=== PATIENT | female | born 1950 | race Caucasian/White ===

== ENCOUNTER → 2016-10-26 | Outpatient (CLI) | payer OTHER ==
[~2016-10-26] MED LIST: ALBU1AER9 INH; ATOR-24 PO; CRG40 PO; LISI40TA PO; LYR75 PO; OYST500T47 PO; PRENTAB65 PO; SERT-234 PO; [UNRECOGNIZED DRUG - CODE] PO
== END | disposition home or self-care (01) ==
LOC: C.LAB 11:26
PROVIDERS: ATTEND Internal Medicine Endocrinology, Diabetes & Metabolism
DX: R73.9 Hyperglycemia, unspecified (principal)

== ENCOUNTER 2017-08-19 00:33 | Inpatient (IN) | payer OTHER ==
[~2017-08-19] VITALS: Ht 172.7 cm; Wt 120.0 kg
[2017-08-19] VITALS (9 sets, daily range): BP systolic 119–135; BP diastolic 73–83; PULSE 57–77; TEMP 37–38; O2SAT 92–97; Ht 172.7 cm; Wt 120.0 kg
[2017-08-19] MEDS ORDERED: ACETAMINOPHEN 500 MG TAB PO STA (00:47)
[2017-08-19] MEDS ORDERED: SODIUM CHLORIDE 0.9% 1000ML 500 ML IV ONE (00:47)
--- NOTE | 2017-08-19 01:16 | EMERGENCY ROOM VISIT NOTE ---
History Report prepared by Myra: Surekha Alvarez Under the Supervision of: Dr. Andrew Mcginnis M.D. First contact with patient: 00:44 Chief Complaint: FLU LIKE SX Stated Complaint: FEVER,COUGHING,DIARRHEA,LUNG CONGESTION History of Present Illness The patient is a 67 year old female who presents to the Emergency Room with complaints of persistent flu symptoms starting yesterday. The patient started having a fever yesterday. She reports chest congestion and coughing. She is feeling weak and has difficulty getting up to her feet. She started having diarrhea yesterday. She denies any vomiting or urinary symptoms. She has been drinking fluids. She did not have a flu shot this season. Her daughter was sick recently, but did not have the flu. She denies any history of asthma or COPD. Source of History: patient Onset: yesterday Position: other (global) Quality: other (flu symptoms) Timing: other (persistent) Associated Symptoms: + fevers, + cough, + diarrhea, + weakness, No vomiting , No urinary symptoms Review of Systems See HPI for pertinent positives & negatives. A total of 10 systems reviewed and were otherwise negative. Past Medical & Surgical Medical Problems: (1) Acute cholecystitis (2) Depression (3) Depressive Disorder Nec (4) Foot deformity (5) Healed foot ulcer (6) History of diabetic ulcer of foot (7) HLD (hyperlipidemia) (8) HTN (hypertension) (9) Hyperlipidemia Nec/Nos (10) Hypertension Nos (11) Loss of sensation (12) Obesity, Nos (13) Peripheral neuropathy (14) Pre-ulcerative corn or callous Surgical Problems: (1) S/P tubal ligation (2) Tubal Ligation Status Family History No pertinent family history stated. Social History Smoking Status: Never Smoker Marital Status: Occupation Status: retired Current/Historical Medications Scheduled Atorvastatin (Lipitor), 40 MG PO DAILY Coenzyme Q10 (Ubidecarenone) (Co Q-10), 150 MG PO DAILY Lisinopril (Zestril), 40 MG PO DAILY Multivitamins/Minerals (Mvi With Minerals), 1 TAB PO DAILY Nadolol (Corgard), 80 MG PO DAILY Sertraline (Zoloft), 200 MG PO DAILY Scheduled PRN Albuterol Hfa (Ventolin Hfa), 2 PUFFS INH Q6H PRN for SOB/Wheezing Allergies Coded Allergies: Digitalis (Unverified Allergy, Intermediate, "passes out", 08/19/17) Antipyrine (Unverified Allergy, Unknown, unknown, 08/19/17) Benzocaine (Unverified Allergy, Unknown, unknown, 08/19/17) Dicyclomine (Unverified Allergy, Unknown, unknown, 08/19/17) Bacitracin (Unverified Adverse Reaction, Intermediate, "slow to heal areas used on", 08/19/17) Neomycin (Unverified Adverse Reaction, Intermediate, "slow to heal areas used on", 08/19/17) Polymyxin B (Unverified Adverse Reaction, Intermediate, "slow to heal areas used on", 06/20/15) Uncoded Allergies: "HYDROXICUT" (Allergy, Intermediate, "passes out", 06/20/15) ANTIHISTAMINE (Allergy, Intermediate, dizziness, 06/20/15) PT IS NONSPECIFIC JURADO'S GLOVE (Allergy, Intermediate, "passes out", 06/20/15) Physical Exam Vital Signs Date Time Temp Pulse Resp B/P (MAP) Pulse Ox O2 Delivery O2 Flow Rate FiO2 08/19/17 00:37 38.1 73 18 150/75 90 Room Air Physical Exam GENERAL: Patient is in no acute distress. HEENT: No acute trauma, normocephalic atraumatic, mucous membranes moist, no nasal congestion, no scleral icterus. No throat erythema or exudate. NECK: No stridor, no adenopathy, no meningismus, trachea is midline. LUNGS: Scattered wheezing. Diminished breath sounds. Breath sounds equal. No crackles. HEART: Without murmurs gallops or rubs, regular rate and rhythm. ABDOMEN: Soft, nontender, bowel sounds positive, no hernias, no peritonitis. EXTREMITIES: No cyanosis or edema, full range of motion of all the joints without pain or difficulty, no signs for acute trauma. NEUROLOGIC: Oriented x 3, no acute motor or sensory deficits, no focal weakness. SKIN: No rash, no jaundice, no diaphoresis. Medical Decision & Procedures ER Provider Diagnostic Interpretation: X-ray results as stated below per interpretation by me: Chest X-ray: No CHF, no pneumonia, no significant cardiomegaly. Laboratory Results 08/19/17 01:09 Red Blood Count 4.98, Mean Corpuscular Volume 86.9, Mean Corpuscular Hemoglobin 29.3, Mean Corpuscular Hemoglobin Concent 33.7, Mean Platelet Volume 9.5, Neutrophils (%) (Auto) 80.3, Lymphocytes (%) (Auto) 8.4, Monocytes (%) (Auto) 10.6, Eosinophils (%) (Auto) 0.2, Basophils (%) (Auto) 0.2, Neutrophils # (Auto ) 8.55, Lymphocytes # (Auto) 0.89, Monocytes # (Auto) 1.13, Eosinophils # (Auto ) 0.02, Basophils # (Auto) 0.02 08/19/17 01:09 Test 08/19/17 00:00 08/19/17 01:09 08/19/17 01:16 White Blood Count 10.64 K/uL (4.8-10.8) Red Blood Count 4.98 M/uL (4.2-5.4) Hemoglobin 14.6 g/dL (12.0-16.0) Hematocrit 43.3 % (37-47) Mean Corpuscular Volume 86.9 fL (80-100) Mean Corpuscular Hemoglobin 29.3 pg (25-34) Mean Corpuscular Hemoglobin Concent 33.7 g/dl (32-36) Platelet Count 164 K/uL (130-400) Mean Platelet Volume 9.5 fL (7.4-10.4) Neutrophils (%) (Auto) 80.3 % Lymphocytes (%) (Auto) 8.4 % Monocytes (%) (Auto) 10.6 % Eosinophils (%) (Auto) 0.2 % Basophils (%) (Auto) 0.2 % Neutrophils # (Auto) 8.55 K/uL (1.4-6.5) Lymphocytes # (Auto) 0.89 K/uL (1.2-3.4) Monocytes # (Auto) 1.13 K/uL (0.11-0.59) Eosinophils # (Auto) 0.02 K/uL (0-0.5) Basophils # (Auto) 0.02 K/uL (0-0.2) RDW Standard Deviation 46.3 fL (36.4-46.3) RDW Coefficient of Variation 14.4 % (11.5-14.5) Immature Granulocyte % (Auto) 0.3 % Immature Granulocyte # (Auto) 0.03 K/uL (0.00-0.02) Prothrombin Time 10.9 SECONDS (9.0-12.0) Prothromb Time International Ratio 1.0 (0.9-1.1) Activated Partial Thromboplast Time 28.2 SECONDS (21.0-31.0) Partial Thromboplastin Ratio 1.1 Anion Gap 9.0 mmol/L (3-11) Est Creatinine Clear Calc Drug Dose 75.9 ml/min Estimated GFR () 69.2 Estimated GFR (Non- 59.7 BUN/Creatinine Ratio 15.2 (10-20) Calcium Level 8.9 mg/dl (8.5-10.1) Total Bilirubin 0.7 mg/dl (0.2-1) Aspartate Amino Transf (AST/SGOT) 27 U/L (15-37) Alanine Aminotransferase (ALT/SGPT) 30 U/L (12-78) Alkaline Phosphatase 107 U/L (45-117) Total Protein 7.7 gm/dl (6.4-8.2) Albumin 3.6 gm/dl (3.4-5.0) Globulin 4.1 gm/dl (2.5-4.0) Albumin/Globulin Ratio 0.9 (0.9-2) Bedside Lactic Acid Venous 1.27 mmol/L (0.90-1.70) Laboratory results reviewed by me. Medications Administered Medications (Trade) Dose Ordered Sig/Viviane Route Start Time Stop Time Status Last Admin Dose Admin Sodium Chloride 500 ml @ 999 mls/hr Q31M ONCE IV 08/19/17 00:47 08/19/17 01:17 DC 08/19/17 00:47 999 MLS/HR Acetaminophen (Tylenol Tab) 1,000 mg NOW STAT PO 08/19/17 00:47 08/19/17 00:49 DC 08/19/17 01:32 1,000 MG Albuterol/ Ipratropium (Duoneb) 3 ml NOW STAT INH 08/19/17 01:33 08/19/17 01:34 DC 08/19/17 01:46 3 ML ED Course 0047: Acetaminophen 1000 mg PO, NSS 500 ml @ 999 mls/hr IV. 0051: The patient was evaluated in room A2. A complete history and physical exam was performed. 0133: Duoneb 3 ml INH. 0141: NSS 500 ml @ 999 mls/hr IV. 0154: I reevaluated the patient. She is resting comfortably. 0200: The patient was signed out to Dr. Henry. Medical Decision Differential diagnoses considered include influenza or flu like illness, pneumonia, UTI, sepsis, dehydration, electrolyte imbalance, anemia. There is no leukocytosis or concerning anemia. No significant electrolyte abnormality, kidney failure or hepatitis. Lactic acid level is not elevated making sepsis less likely. Chest film does not show pneumonia or CHF. Blood cultures are pending. Influenza testing and urinalysis results are pending. On exam, there were no focal neurologic deficits. She was not toxic in appearance. The patient presents with weakness, fever, cough/congestion. She presents basically with flulike symptoms. She has had some diarrhea. The patient received IV saline. She was given 2/500 mL boluses. She was given a DuoNeb. She received oral Tylenol. The patient is still receiving IV fluids, she has yet to provide a urine sample. Once her fluids are complete, once her flu testing has returned, once she has provided a urine sample, she will be reassessed. At this point, the case is being assumed by Dr. Henry, please see his notes for the final disposition and plan. Of note, the patient is already feeling better since her fluids, Tylenol and breathing treatment. Medication Reconcilliation Current Medication List: was personally reviewed by me Blood Pressure Screening Patient's blood pressure: Elevated blood pressure Blood pressure disposition: Referred to PCP Impression Primary Impression: Weakness Additional Impressions: Fever Flu-like symptoms Scribe Attestation The scribe's documentation has been prepared under my direction and personally reviewed by me in its entirety. I confirm that the note above accurately reflects all work, treatment, procedures, and medical decision making performed by me. Departure Information Dispostion Still a Patient Referrals Gilmar Quintero III, M.D. (PCP) Patient Instructions My [facility] Problem Qualifiers
[2017-08-19 01:18] LABS: BASO % 0.2 %; BASO ABS # 0.02 K/uL (0-0.2); EOS % 0.2 %; EOS ABS # 0.02 K/uL (0-0.5); HEMATOCRIT 43.3 % (37-47); HEMOGLOBIN 14.6 g/dL (12.0-16.0); IG# 0.03 K/uL (0.00-0.02); LYMPH % 8.4 %; LYMPH ABS # 0.89 K/uL (1.2-3.4); MEAN CELL VOLUME 86.9 fL (80-100); MEAN CORPUSCULAR HEMOGLOBIN 29.3 pg (25-34); MEAN CORPUSCULAR HGB CONC 33.7 g/dl (32-36); MEAN PLATELET VOLUME 9.5 fL (7.4-10.4); MONO % 10.6 %; MONO ABS # 1.13 K/uL (0.11-0.59); NEUT % 80.3 %; NEUT ABS # 8.55 K/uL (1.4-6.5); PLATELET COUNT 164 K/uL (130-400); RED CELL DISTRIBUTION WIDTH CV 14.4 % (11.5-14.5); RED CELL DISTRIBUTION WIDTH SD 46.3 fL (36.4-46.3); WHITE BLOOD COUNT 10.64 K/uL (4.8-10.8)
[2017-08-19] MEDS ORDERED: ALBUT/IPRATROP 3MG/0.5MG NEB 3 ML VIAL INH STA (01:33)
[2017-08-19 01:35] LABS: ALBUMIN 3.6 gm/dl (3.4-5.0); CALCIUM 8.9 mg/dl (8.5-10.1); CREATININE 0.98 mg/dl (0.60-1.20); POTASSIUM 3.9 mmol/L (3.5-5.1)
[2017-08-19 01:37] LABS: TOTAL PROTEIN 7.7 gm/dl (6.4-8.2)
[2017-08-19] MEDS ORDERED: SODIUM CHLORIDE 0.9% 500ML 500 ML IV STA (01:41)
[2017-08-19 01:51] LABS: PTT PATIENT 28.2 SECONDS (21.0-31.0)
[2017-08-19] MEDS ORDERED: NADO80TA PO (01:56)
[2017-08-19] MEDS ORDERED: VNTHFA/IN INH (01:56)
[2017-08-19] MEDS ORDERED: COEN150C PO (01:57)
[2017-08-19] MEDS ORDERED: MULT-513 PO (01:57)
[2017-08-19 02:42] LABS: INFLUENZA A PCR POS for Influ A (NEG); INFLUENZA B PCR Neg for Influ B (NEG)
[2017-08-19] MEDS ORDERED: OSELTAMIVIR PHOSPHATE 75 MG CAP PO STA (02:49)
[2017-08-19] MEDS ORDERED: ACETAMINOPHEN 325 MG TAB PO PRN (04:00)
[2017-08-19] MEDS ORDERED: ONDANSETRON INJ 2 MG/ML 2 ML VIAL IV PRN (04:00)
--- NOTE | 2017-08-19 04:05 | History and Physical ---
History & Physical Date & Time of Service: Aug 19, 2017 at 03:56 Chief Complaint: Fever,Coughing,Diarrhea,Lung Congestion Primary Care Physician: Gilmar Quintero III, M.D. History of Present Illness Source: patient, family, clinic records, hospital records 67 yo F presents with flu symptoms that began yesterday including a fever, chest congestion and coughing. She has had progressive weakness today and has had difficulty getting up on her feet. She denies vomiting or urinary symptoms but does report some diarrhea. . She has been tolerating PO at home and did not receive a flu shot this year. Daughter reports mom was wheezing and patient states that she felt short of breath today. Denies chest pain. Some sore throat present. Past Medical/Surgical History Medical Problems: (1) Depression Status: Chronic (3) HLD (hyperlipidemia) Status: Chronic (4) HTN (hypertension) Status: Chronic (5) Hyperlipidemia Nec/Nos Status: Chronic (6) Hypertension Nos Status: Chronic (7) Obesity, Nos Status: Chronic Surgical Problems: (1) S/P tubal ligation Status: Chronic 2) s/p Soniya Family History Patient reports no known family medical history. Social History Smoking Status: Never Smoker Smokeless Tobacco Use: No Alcohol Use: socially Drug Use: none Marital Status: Housing status: lives with significant other Occupational Status: retired (RN) Immunizations History of Influenza Vaccine: Yes Influenza Vaccine Date: May 01, 2016 History of Tetanus Vaccine?: Yes Tetanus Immunization Date: Jun 27, 2011 History of Pneumococcal: Yes Pneumococcal Date: May 01, 2016 History of Hepatitis B Vaccine: Unknown Multi-Drug Resistant Organisms History of MDRO: No Allergies Coded Allergies: Digitalis (Unverified Allergy, Intermediate, "passes out", 08/19/17) Antipyrine (Unverified Allergy, Unknown, unknown, 08/19/17) Benzocaine (Unverified Allergy, Unknown, unknown, 08/19/17) Dicyclomine (Unverified Allergy, Unknown, unknown, 08/19/17) Bacitracin (Unverified Adverse Reaction, Intermediate, "slow to heal areas used on", 08/19/17) Neomycin (Unverified Adverse Reaction, Intermediate, "slow to heal areas used on", 08/19/17) Polymyxin B (Unverified Adverse Reaction, Intermediate, "slow to heal areas used on", 06/20/15) Uncoded Allergies: "HYDROXICUT" (Allergy, Intermediate, "passes out", 06/20/15) ANTIHISTAMINE (Allergy, Intermediate, dizziness, 06/20/15) PT IS NONSPECIFIC JURADO'S GLOVE (Allergy, Intermediate, "passes out", 06/20/15) Home Medications Scheduled Atorvastatin (Lipitor), 40 MG PO DAILY Coenzyme Q10 (Ubidecarenone) (Co Q-10), 150 MG PO DAILY Lisinopril (Zestril), 40 MG PO DAILY Multivitamins/Minerals (Mvi With Minerals), 1 TAB PO DAILY Nadolol (Corgard), 80 MG PO DAILY Sertraline (Zoloft), 200 MG PO DAILY Scheduled PRN Albuterol Hfa (Ventolin Hfa), 2 PUFFS INH Q6H PRN for SOB/Wheezing Review of Systems At least ten systems were reviewed and negative except as indicated in HPI. Physical Exam Vital Signs Date Time Temp Pulse Resp B/P (MAP) Pulse Ox O2 Delivery O2 Flow Rate FiO2 08/19/17 03:09 85 Room Air 08/19/17 02:44 73 18 94 Room Air 08/19/17 00:37 38.1 73 18 150/75 90 Room Air General Appearance: no apparent distress, + obese Head: normocephalic, atraumatic Eyes: normal inspection, PERRL, sclerae normal ENT: hearing grossly normal, pharynx normal, + pertinent finding (some sinus pressure TTP in frontal sinuses) Neck: no adenopathy, trachea midline Respiratory/Chest: chest non-tender, normal breath sounds, no respiratory distress, no accessory muscle use, + wheezing Cardiovascular: regular rate, rhythm, no edema, no gallop, no JVD, no murmur, normal peripheral pulses Abdomen/GI: normal bowel sounds, soft, + tenderness (diffuse, no guarding), + pertinent finding (obese abdomen limited exam) Back: normal inspection Extremities/Musculoskelatal: normal inspection, no pedal edema Neurologic/Psych: portable machine cutter II-XII nml as tested, no motor/sensory deficits, alert, normal mood/affect, oriented x 3 Skin: normal color, + diaphoresis Diagnostics Laboratory Results 08/19/17 01:09 Red Blood Count 4.98, Mean Corpuscular Volume 86.9, Mean Corpuscular Hemoglobin 29.3, Mean Corpuscular Hemoglobin Concent 33.7, Mean Platelet Volume 9.5, Neutrophils (%) (Auto) 80.3, Lymphocytes (%) (Auto) 8.4, Monocytes (%) (Auto) 10.6, Eosinophils (%) (Auto) 0.2, Basophils (%) (Auto) 0.2, Neutrophils # (Auto ) 8.55, Lymphocytes # (Auto) 0.89, Monocytes # (Auto) 1.13, Eosinophils # (Auto ) 0.02, Basophils # (Auto) 0.02 08/19/17 01:09 Test 08/19/17 00:00 08/19/17 01:09 08/19/17 01:16 Influenza Type A (RT-PCR) POS for Influ A (NEG) Influenza Type B (RT-PCR) Neg for Influ B (NEG) White Blood Count 10.64 K/uL (4.8-10.8) Red Blood Count 4.98 M/uL (4.2-5.4) Hemoglobin 14.6 g/dL (12.0-16.0) Hematocrit 43.3 % (37-47) Mean Corpuscular Volume 86.9 fL (80-100) Mean Corpuscular Hemoglobin 29.3 pg (25-34) Mean Corpuscular Hemoglobin Concent 33.7 g/dl (32-36) Platelet Count 164 K/uL (130-400) Mean Platelet Volume 9.5 fL (7.4-10.4) Neutrophils (%) (Auto) 80.3 % Lymphocytes (%) (Auto) 8.4 % Monocytes (%) (Auto) 10.6 % Eosinophils (%) (Auto) 0.2 % Basophils (%) (Auto) 0.2 % Neutrophils # (Auto) 8.55 K/uL (1.4-6.5) Lymphocytes # (Auto) 0.89 K/uL (1.2-3.4) Monocytes # (Auto) 1.13 K/uL (0.11-0.59) Eosinophils # (Auto) 0.02 K/uL (0-0.5) Basophils # (Auto) 0.02 K/uL (0-0.2) RDW Standard Deviation 46.3 fL (36.4-46.3) RDW Coefficient of Variation 14.4 % (11.5-14.5) Immature Granulocyte % (Auto) 0.3 % Immature Granulocyte # (Auto) 0.03 K/uL (0.00-0.02) Prothrombin Time 10.9 SECONDS (9.0-12.0) Prothromb Time International Ratio 1.0 (0.9-1.1) Activated Partial Thromboplast Time 28.2 SECONDS (21.0-31.0) Partial Thromboplastin Ratio 1.1 Anion Gap 9.0 mmol/L (3-11) Est Creatinine Clear Calc Drug Dose 75.9 ml/min Estimated GFR () 69.2 Estimated GFR (Non- 59.7 BUN/Creatinine Ratio 15.2 (10-20) Calcium Level 8.9 mg/dl (8.5-10.1) Total Bilirubin 0.7 mg/dl (0.2-1) Aspartate Amino Transf (AST/SGOT) 27 U/L (15-37) Alanine Aminotransferase (ALT/SGPT) 30 U/L (12-78) Alkaline Phosphatase 107 U/L (45-117) Total Protein 7.7 gm/dl (6.4-8.2) Albumin 3.6 gm/dl (3.4-5.0) Globulin 4.1 gm/dl (2.5-4.0) Albumin/Globulin Ratio 0.9 (0.9-2) Bedside Lactic Acid Venous 1.27 mmol/L (0.90-1.70) Date/Time Source Procedure Growth Status 08/19/17 01:09 Blood Blood Culture Pending Received Results Past 24 Hours Test 08/19/17 00:00 08/19/17 01:09 08/19/17 01:16 Range/Units Influenza Type A (RT-PCR) POS for Influ A NEG Influenza Type B (RT-PCR) Neg for Influ B NEG White Blood Count 10.64 4.8-10.8 K/uL Red Blood Count 4.98 4.2-5.4 M/uL Hemoglobin 14.6 12.0-16.0 g/dL Hematocrit 43.3 37-47 % Mean Corpuscular Volume 86.9 80-100 fL Mean Corpuscular Hemoglobin 29.3 25-34 pg Mean Corpuscular Hemoglobin Concent 33.7 32-36 g/dl Platelet Count 164 130-400 K/uL Mean Platelet Volume 9.5 7.4-10.4 fL Neutrophils (%) (Auto) 80.3 % Lymphocytes (%) (Auto) 8.4 % Monocytes (%) (Auto) 10.6 % Eosinophils (%) (Auto) 0.2 % Basophils (%) (Auto) 0.2 % Neutrophils # (Auto) 8.55 1.4-6.5 K/uL Lymphocytes # (Auto) 0.89 1.2-3.4 K/uL Monocytes # (Auto) 1.13 0.11-0.59 K/uL Eosinophils # (Auto) 0.02 0-0.5 K/uL Basophils # (Auto) 0.02 0-0.2 K/uL RDW Standard Deviation 46.3 36.4-46.3 fL RDW Coefficient of Variation 14.4 11.5-14.5 % Immature Granulocyte % (Auto) 0.3 % Immature Granulocyte # (Auto) 0.03 0.00-0.02 K/uL Prothrombin Time 10.9 9.0-12.0 SECONDS Prothromb Time International Ratio 1.0 0.9-1.1 Activated Partial Thromboplast Time 28.2 21.0-31.0 SECONDS Partial Thromboplastin Ratio 1.1 Sodium Level 135 136-145 mmol/L Potassium Level 3.9 3.5-5.1 mmol/L Chloride Level 100 98-107 mmol/L Carbon Dioxide Level 26 21-32 mmol/L Anion Gap 9.0 3-11 mmol/L Blood Urea Nitrogen 15 7-18 mg/dl Creatinine 0.98 0.60-1.20 mg/dl Est Creatinine Clear Calc Drug Dose 75.9 ml/min Estimated GFR () 69.2 Estimated GFR (Non- 59.7 BUN/Creatinine Ratio 15.2 10-20 Random Glucose 162 70-99 mg/dl Calcium Level 8.9 8.5-10.1 mg/dl Total Bilirubin 0.7 0.2-1 mg/dl Aspartate Amino Transf (AST/SGOT) 27 15-37 U/L Alanine Aminotransferase (ALT/SGPT) 30 12-78 U/L Alkaline Phosphatase 107 45-117 U/L Total Protein 7.7 6.4-8.2 gm/dl Albumin 3.6 3.4-5.0 gm/dl Globulin 4.1 2.5-4.0 gm/dl Albumin/Globulin Ratio 0.9 0.9-2 Bedside Lactic Acid Venous 1.27 0.90-1.70 mmol/L Microbiology Results 08/19/17 Blood Culture, Received Pending 08/19/17 Blood Culture, Received Pending Diagnostic Radiology CXR (wet read): no infiltrate Impression Assessment and Plan 67 yo female with worsening SOB and DAE presents with Flu A. Hypoxia-2/2 flu, cont supplemental oxygen and Tamiflu. Cont supportive care measures with NSS, antiemetics PRN, pain control PRN Influenza A-as above. HTN-controlled, cont home meds wheezing 2/2 above-cont bronchodilators DVT proph-Yovani Full Code Dispo-to floor DO Vianney Morley Hospitalist Level of Care Med/Surg Resuscitation Status FULL RESUSCITATION VTE Prophylaxis VTE Risk Assessment Done? Y/N: Yes Risk Level: Moderate Given or contraindicated: Enoxaparin (Lovenox)SQ
[2017-08-19] MEDS: SODIUM CHLORIDE 0.9% 1000ML 1,000 ML IV SCH ×2 (04:52→12:07)
--- NOTE | 2017-08-19 06:03 | EMERGENCY ROOM VISIT NOTE ---
ED Visit Note First contact with patient: 02:32 Pleasant 67 yr old female arrives for worsening generalized weakness in setting of flu like illness. Notes severe weakness just with walking. Was having wheezing which resolved with Duoneb initially. Initially evaluated and signed out to me by Dr Mcginnis awaiting flu swab. PCR is Flu A positive. Patient is unable to ambulate without dropping O2 sats in to mid 80s and is requiring NC O2 just to get her back to low 90s. She is ill appearing and too weak to go home. She does not have evidence of PE, ACS, Dissection. I do not see any evidence of Pneumonia at this time. She was never a smoker but did have extensive second hand smoke exposure. Without any further wheezing will hold off on steroids. Discussed with hospitalist who will evaluate patient. Diagnosis: Influenza A Hypoxia Generalized Weakness
--- NOTE | 2017-08-19 06:56 | DIAGNOSTIC IMAGING REPORT ---
CHEST ONE VIEW PORTABLE CLINICAL HISTORY: Sepsis. COMPARISON STUDY: Chest radiograph June 20, 2015. FINDINGS: There is mild elevation of the right hemidiaphragm. This is unchanged. There is no consolidation to suggest pneumonia. There is no evidence for pulmonary edema. Cardiac size is top normal. No pneumothorax or pleural effusion is noted. IMPRESSION: No acute cardiopulmonary findings. Electronically signed by: Clemente Mace M.D. 08/19/2017 6:55 AM Dictated Date/Time: 08/19/2017 6:54 AM
[2017-08-19] MEDS: ALBUT/IPRATROP 3MG/0.5MG NEB 3 ML VIAL INH SCH ×4 (08:09→20:48)
[2017-08-19] MEDS: CEROVITE ADV FORMULA TAB PO SCH (09:18)
[2017-08-19] MEDS: ENOXAPARIN 40 MG/0.4 ML SYR SQ SCH (09:18)
[2017-08-19] MEDS: OSELTAMIVIR PHOSPHATE 75 MG CAP PO SCH ×2 (09:19→21:14)
[2017-08-19] MEDS: ATORVASTATIN 20 MG TAB PO SCH (09:19)
[2017-08-19] MEDS: SERTRALINE HCL 100 MG TAB PO SCH (09:19)
[2017-08-19] MEDS: NADOLOL 40 MG TAB PO SCH (09:20)
[2017-08-19] MEDS: LISINOPRIL 40 MG TAB PO SCH (09:20)
--- NOTE | 2017-08-19 18:09 | Progress Note ---
Internal Med Progress Note Date of Service: Aug 19, 2017. Provider Documentation: SUBJECTIVE: The patient was seen and examined Feels a little better today Complains of Diarrhea OBJECTIVE: Vital Signs-as noted below Exam: General-Minimal distress at rest Obese Eyes-Normal ENT-normal Neck-supple Lungs-clear to auscultate bilaterally Heart-Regular,no murmur Abdomen-Benign,no masses,bowel sound present Extremities-No edema Neuro-AAOx3 Lab data as noted below. ASSESSMENT & PLAN: 67 yo female with worsening SOB and DAE presents with Flu A. Influenza A Hypoxia-2/2 flu, cont supplemental oxygen and Tamiflu. Cont supportive care measures with NSS, antiemetics PRN, pain control PRN wheezing 2/2 above-cont bronchodilators Clinically a little better Continue supportive care Diarrhea Likely secondary to Viral gastroenteritis Stool for C Diff and Culture HTN-controlled, cont home meds Remains stable Depression Continue home med DVT proph-Lovenox Full Code Dispo-to floor Vital Signs: Date Time Temp Pulse Resp B/P (MAP) Pulse Ox O2 Delivery O2 Flow Rate FiO2 08/19/17 17:02 37.6 08/19/17 16:12 77 20 95 Nasal Cannula 2.0 08/19/17 15:45 Nasal Cannula 2.0 08/19/17 15:22 38.0 70 18 135/75 (95) 92 Nasal Cannula 3.0 08/19/17 11:35 97 08/19/17 08:15 Nasal Cannula 3.0 Humidified Oxygen 08/19/17 08:09 67 16 97 Nasal Cannula 3.0 08/19/17 07:35 37.0 57 15 126/83 (97) 96 Humidified Oxygen 3.0 08/19/17 04:20 37.0 61 18 135/82 95 Nasal Cannula 3.0 08/19/17 03:59 37.3 61 20 132/61 95 Nasal Cannula 4.0 08/19/17 03:09 85 Room Air 08/19/17 02:44 73 18 94 Room Air 08/19/17 00:37 38.1 73 18 150/75 90 Room Air Lab Results: Results Past 24 Hours Test 08/19/17 00:00 08/19/17 01:09 08/19/17 01:16 08/19/17 04:25 Range/Units Influenza Type A (RT-PCR) POS for Influ A NEG Influenza Type B (RT-PCR) Neg for Influ B NEG White Blood Count 10.64 4.8-10.8 K/uL Red Blood Count 4.98 4.2-5.4 M/uL Hemoglobin 14.6 12.0-16.0 g/dL Hematocrit 43.3 37-47 % Mean Corpuscular Volume 86.9 80-100 fL Mean Corpuscular Hemoglobin 29.3 25-34 pg Mean Corpuscular Hemoglobin Concent 33.7 32-36 g/dl Platelet Count 164 130-400 K/uL Mean Platelet Volume 9.5 7.4-10.4 fL Neutrophils (%) (Auto) 80.3 % Lymphocytes (%) (Auto) 8.4 % Monocytes (%) (Auto) 10.6 % Eosinophils (%) (Auto) 0.2 % Basophils (%) (Auto) 0.2 % Neutrophils # (Auto) 8.55 1.4-6.5 K/uL Lymphocytes # (Auto) 0.89 1.2-3.4 K/uL Monocytes # (Auto) 1.13 0.11-0.59 K/uL Eosinophils # (Auto) 0.02 0-0.5 K/uL Basophils # (Auto) 0.02 0-0.2 K/uL RDW Standard Deviation 46.3 36.4-46.3 fL RDW Coefficient of Variation 14.4 11.5-14.5 % Immature Granulocyte % (Auto) 0.3 % Immature Granulocyte # (Auto) 0.03 0.00-0.02 K/uL Prothrombin Time 10.9 9.0-12.0 SECONDS Prothromb Time International Ratio 1.0 0.9-1.1 Activated Partial Thromboplast Time 28.2 21.0-31.0 SECONDS Partial Thromboplastin Ratio 1.1 Sodium Level 135 136-145 mmol/L Potassium Level 3.9 3.5-5.1 mmol/L Chloride Level 100 98-107 mmol/L Carbon Dioxide Level 26 21-32 mmol/L Anion Gap 9.0 3-11 mmol/L Blood Urea Nitrogen 15 7-18 mg/dl Creatinine 0.98 0.60-1.20 mg/dl Est Creatinine Clear Calc Drug Dose 75.9 ml/min Estimated GFR () 69.2 Estimated GFR (Non- 59.7 BUN/Creatinine Ratio 15.2 10-20 Random Glucose 162 70-99 mg/dl Calcium Level 8.9 8.5-10.1 mg/dl Total Bilirubin 0.7 0.2-1 mg/dl Aspartate Amino Transf (AST/SGOT) 27 15-37 U/L Alanine Aminotransferase (ALT/SGPT) 30 12-78 U/L Alkaline Phosphatase 107 45-117 U/L Total Protein 7.7 6.4-8.2 gm/dl Albumin 3.6 3.4-5.0 gm/dl Globulin 4.1 2.5-4.0 gm/dl Albumin/Globulin Ratio 0.9 0.9-2 Bedside Lactic Acid Venous 1.27 0.90-1.70 mmol/L Urine Color YELLOW Urine Appearance CLOUDY CLEAR Urine pH 5.0 4.5-7.5 Urine Specific [place] 1.016 1.000-1.030 Urine Protein NEG NEG Urine Glucose (UA) NEG NEG Urine Ketones NEG NEG Urine Occult Blood NEG NEG Urine Nitrite NEG NEG Urine Bilirubin NEG NEG Urine Urobilinogen NEG NEG Urine Leukocyte Esterase SMALL NEG Urine WBC (Auto) 1-5 0-5 /hpf Urine RBC (Auto) 0-4 0-4 /hpf Urine Hyaline Casts (Auto) 1-5 0-5 /lpf Urine Epithelial Cells (Auto) >30 0-5 /lpf Urine Bacteria (Auto) 1+ NEG Urine Crystals AMORPHOUS SEDIMENT NONE PRSENT Urine Yeast (Auto) NONE PRSENT Microbiology Results 08/19/17 Blood Culture, Received Pending 08/19/17 Blood Culture, Received Pending 08/19/17 C.difficile Toxin B Gene (PCR) - Final, Complete No C. difficile toxin B gene detected 08/19/17 Shiga Toxin Test, Received Pending 08/19/17 Stool Culture, Received Pending 08/19/17 Urine Culture, Received Pending
[2017-08-20] VITALS (7 sets, daily range): BP systolic 127–149; BP diastolic 67–81; PULSE 60–68; TEMP 37.2–37.4; O2SAT 90–93
[2017-08-20] MEDS: ALBUT/IPRATROP 3MG/0.5MG NEB 3 ML VIAL INH SCH ×4 (07:47→20:25)
[2017-08-20] MEDS: LISINOPRIL 40 MG TAB PO SCH (07:57)
[2017-08-20] MEDS: ATORVASTATIN 20 MG TAB PO SCH (07:57)
[2017-08-20] MEDS: SERTRALINE HCL 100 MG TAB PO SCH (07:57)
[2017-08-20] MEDS: CEROVITE ADV FORMULA TAB PO SCH (07:57)
[2017-08-20] MEDS: OSELTAMIVIR PHOSPHATE 75 MG CAP PO SCH ×2 (07:58→20:54)
[2017-08-20] MEDS: NADOLOL 40 MG TAB PO SCH (07:58)
[2017-08-20] MEDS: ENOXAPARIN 40 MG/0.4 ML SYR SQ SCH (07:59)
--- NOTE | 2017-08-20 15:41 | Progress Note ---
Internal Med Progress Note Date of Service: Aug 20, 2017. Provider Documentation: SUBJECTIVE: The patient was seen and examined Feels a little better today Complains of Diarrhea-settled Clinically much better today Complains of some yellowish sputum OBJECTIVE: Vital Signs-as noted below Exam: General-Minimal distress at rest Obese Eyes-Normal ENT-normal Neck-supple Lungs-Minimal wheezing bilaterally Heart-Regular,no murmur Abdomen-Benign,no masses,bowel sound present Extremities-No edema Neuro-AAOx3 Lab data as noted below. ASSESSMENT & PLAN: 67 yo female with worsening SOB and DAE presents with Flu A. Influenza A Hypoxia-2/2 flu, cont supplemental oxygen and Tamiflu. Cont supportive care measures with NSS, antiemetics PRN, pain control PRN wheezing 2/2 above-cont bronchodilators Clinically much better Continue supportive care CXR in AM and may be discharged tomorrow Diarrhea Likely secondary to Viral gastroenteritis Stool for C Diff and Culture-negative HTN-controlled, cont home meds Remains stable Depression Continue home med DVT proph-Lovenox Full Code Dispo-to floor Vital Signs: Date Time Temp Pulse Resp B/P (MAP) Pulse Ox O2 Delivery O2 Flow Rate FiO2 08/20/17 15:06 37.3 60 16 127/73 (91) 90 Room Air 08/20/17 11:36 61 18 92 Room Air 08/20/17 08:00 Room Air 08/20/17 07:47 60 18 91 Room Air 08/20/17 07:09 37.4 63 18 149/67 (94) 92 Room Air 08/19/17 23:45 Room Air 08/19/17 22:27 37.0 61 19 119/73 (88) 92 Room Air 08/19/17 20:48 71 18 94 Nasal Cannula 2.0 08/19/17 17:02 37.6 08/19/17 16:12 77 20 95 Nasal Cannula 2.0 08/19/17 15:45 Nasal Cannula 2.0
[2017-08-21] MEDS: ALBUT/IPRATROP 3MG/0.5MG NEB 3 ML VIAL INH SCH ×2 (07:22→11:23)
[2017-08-21 07:23] VITALS: PULSE 67; O2SAT 94
[2017-08-21 08:03] VITALS: O2SAT 95
[2017-08-21 08:14] VITALS: BP 138/80; PULSE 60; TEMP 36.3; O2SAT 95
--- NOTE | 2017-08-21 08:42 | DIAGNOSTIC IMAGING REPORT ---
CHEST 2 VIEWS ROUTINE HISTORY: 67 years-old Female Flu,r/o Pneumonia follow-up study in a patient with recent sepsis COMPARISON: Chest radiograph 08/19/2017 TECHNIQUE: PA and lateral views of the chest FINDINGS: Cardiomediastinal and hilar silhouettes are within normal limits. No pneumothorax, pleural effusion, focal airspace consolidation or overt pulmonary edema. Hazy opacity of the left lung base likely secondary to composite soft tissue. The patient is slightly rotated to the right. Degenerative changes are seen within the shoulders and spine. Mild extra scoliosis of the midthoracic spine. Cholecystectomy clips noted. IMPRESSION: No acute process. The above report was generated using voice recognition software. It may contain grammatical, syntax or spelling errors. Electronically signed by: Roberto Green M.D. 08/21/2017 8:40 AM Dictated Date/Time: 08/21/2017 8:11 AM
[2017-08-21] MEDS: LISINOPRIL 40 MG TAB PO SCH (08:58)
[2017-08-21] MEDS: NADOLOL 40 MG TAB PO SCH (08:59)
[2017-08-21] MEDS: SERTRALINE HCL 100 MG TAB PO SCH (08:59)
[2017-08-21] MEDS: OSELTAMIVIR PHOSPHATE 75 MG CAP PO SCH (08:59)
[2017-08-21] MEDS: ENOXAPARIN 40 MG/0.4 ML SYR SQ SCH (08:59)
[2017-08-21] MEDS: CEROVITE ADV FORMULA TAB PO SCH (08:59)
[2017-08-21] MEDS: ATORVASTATIN 20 MG TAB PO SCH (08:59)
[2017-08-21 09:29] LABS: HEMATOCRIT 40.2 % (37-47); HEMOGLOBIN 13.5 g/dL (12.0-16.0); MEAN CELL VOLUME 86.1 fL (80-100); MEAN CORPUSCULAR HEMOGLOBIN 28.9 pg (25-34); MEAN CORPUSCULAR HGB CONC 33.6 g/dl (32-36); MEAN PLATELET VOLUME 9.9 fL (7.4-10.4); NUCLEATED RED BLOOD CELL ABS 0.02 K/uL (0-0); PLATELET COUNT 154 K/uL (130-400); RED CELL DISTRIBUTION WIDTH CV 14.8 % (11.5-14.5); RED CELL DISTRIBUTION WIDTH SD 46.7 fL (36.4-46.3); WHITE BLOOD COUNT 6.62 K/uL (4.8-10.8)
[2017-08-21 09:41] LABS: CALCIUM 8.7 mg/dl (8.5-10.1); CREATININE 0.75 mg/dl (0.60-1.20)
[2017-08-21 11:23] VITALS: PULSE 63; O2SAT 96
--- NOTE | 2017-08-21 12:00 | Progress Note ---
Internal Med Progress Note Date of Service: Aug 21, 2017. Provider Documentation: SUBJECTIVE: The patient was seen and examined Complains of Diarrhea-settled Clinically much better today Complains of some greenish sputum OBJECTIVE: Vital Signs-as noted below Exam: General-Minimal distress at rest Obese Eyes-Normal ENT-normal Neck-supple Lungs-Minimal wheezing bilaterally Heart-Regular,no murmur Abdomen-Benign,no masses,bowel sound present Extremities-No edema Neuro-AAOx3 Lab data as noted below. ASSESSMENT & PLAN: 67 yo female with worsening SOB and DAE presents with Flu A. Influenza A Hypoxia-2/2 flu, cont supplemental oxygen and Tamiflu. Cont supportive care measures with NSS, antiemetics PRN, pain control PRN wheezing 2/2 above-cont bronchodilators Clinically much better Continue supportive care CXR is clear Can go home today Diarrhea Likely secondary to Viral gastroenteritis Stool for C Diff and Culture-negative Will give Imodium PRN HTN-controlled, cont home meds Remains stable Depression Continue home med DVT proph-Lovenox Full Code Dispo-to floor Discharge today Vital Signs: Date Time Temp Pulse Resp B/P (MAP) Pulse Ox O2 Delivery O2 Flow Rate FiO2 08/21/17 11:23 63 18 96 Room Air 08/21/17 08:30 Room Air 08/21/17 08:14 36.3 60 18 138/80 (99) 95 Room Air 08/21/17 08:03 95 Room Air 08/21/17 07:23 67 18 94 Room Air 08/21/17 00:20 Room Air 08/20/17 22:50 37.2 67 18 140/81 (100) 93 Room Air 08/20/17 20:26 68 18 92 Room Air 08/20/17 16:30 Room Air 08/20/17 15:52 68 18 91 Room Air 08/20/17 15:06 37.3 60 16 127/73 (91) 90 Room Air Lab Results: Results Past 24 Hours Test 08/21/17 08:33 Range/Units White Blood Count 6.62 4.8-10.8 K/uL Red Blood Count 4.67 4.2-5.4 M/uL Hemoglobin 13.5 12.0-16.0 g/dL Hematocrit 40.2 37-47 % Mean Corpuscular Volume 86.1 80-100 fL Mean Corpuscular Hemoglobin 28.9 25-34 pg Mean Corpuscular Hemoglobin Concent 33.6 32-36 g/dl RDW Standard Deviation 46.7 36.4-46.3 fL RDW Coefficient of Variation 14.8 11.5-14.5 % Platelet Count 154 130-400 K/uL Mean Platelet Volume 9.9 7.4-10.4 fL Nucleated RBC Absolute Count (auto) 0.02 0-0 K/uL Nucleated Red Blood Cells % 0.2 % Sodium Level 139 136-145 mmol/L Potassium Level 4.0 3.5-5.1 mmol/L Chloride Level 106 98-107 mmol/L Carbon Dioxide Level 26 21-32 mmol/L Anion Gap 7.0 3-11 mmol/L Blood Urea Nitrogen 16 7-18 mg/dl Creatinine 0.75 0.60-1.20 mg/dl Est Creatinine Clear Calc Drug Dose 99.2 ml/min Estimated GFR () 95.6 Estimated GFR (Non- 82.5 BUN/Creatinine Ratio 20.6 10-20 Random Glucose 86 70-99 mg/dl Calcium Level 8.7 8.5-10.1 mg/dl Chemistry Specimen Hemolysis
[2017-08-21 13:13] VITALS: BP 138/80; PULSE 63; TEMP 36.3; O2SAT 96
[2017-08-21] MEDS ORDERED: TMF75 PO (13:51)
--- NOTE | 2017-08-21 13:53 | Discharge Instructions ---
Discharge Instructions Date of Service Aug 21, 2017. Admission Reason for Admission: Influenza A Discharge Discharge Diagnosis / Problem: Influenza A Discharge Goals Goal(s): Prevent Disease Progression Activity Recommendations Activity Limitations: resume your previous activity . Instructions / Follow-Up Instructions / Follow-Up DR Quintero on 08/26/17 at 1:45PM Current Hospital Diet Patient's current hospital diet: AHA Diet (Heart Healthy) Discharge Diet Recommended Diet: AHA Diet (Heart Healthy) Pending Studies Studies pending at discharge: no Medical Emergencies . Who to Call and When: Medical Emergencies: If at any time you feel your situation is an emergency, please call 911 immediately. . Non-Emergent Contact Non-Emergency issues call your: Primary Care Provider . Past History Medical & Surgical History: (1) Influenza A (2) HLD (hyperlipidemia) (3) Depression (4) Peripheral neuropathy (5) History of diabetic ulcer of foot (6) HTN (hypertension) (7) S/P tubal ligation . "Provider Documentation" section prepared by Matilda Salvador. . VTE Core Measure Inpt VTE Proph given/why not?: Enoxaparin (Lovenox)SQ
--- NOTE | 2017-08-22 08:44 | Discharge Summary ---
Discharge Summary Date of Service Aug 22, 2017. Discharge Summary Admission Date: Aug 19, 2017 at 03:21 Discharge Date: Aug 21, 2017 Discharge Disposition: Home Principal Diagnosis: Influenza A Secondary Diagnoses/Problems: Please see H&P and Hospital Progress note Medication Reconciliation New Medications: Oseltamivir Phosphate (Tamiflu) 75 Mg Cap 75 MG PO BID for 3 Days, #6 CAP Continued Medications: Albuterol Hfa (Ventolin Hfa) 200 Puffs/59918 Mcg Aers 2 PUFFS INH Q6H PRN for SOB/Wheezing, INHALER Atorvastatin (Lipitor) 40 Mg Tab 40 MG PO DAILY, TAB Coenzyme Q10 (Ubidecarenone) (Co Q-10) 150 Mg Cap 150 MG PO DAILY, CAP Lisinopril (Zestril) 40 Mg Tab 40 MG PO DAILY, TAB Multivitamins/Minerals (Mvi With Minerals) Tab 1 TAB PO DAILY, TAB Nadolol (Corgard) 80 Mg Tab 80 MG PO DAILY Sertraline (Zoloft) 100 Mg Tab 200 MG PO DAILY, 0 Refills Admission Information HPI (per Admitting provider): 67 yo F presents with flu symptoms that began yesterday including a fever, chest congestion and coughing. She has had progressive weakness today and has had difficulty getting up on her feet. She denies vomiting or urinary symptoms but does report some diarrhea. . She has been tolerating PO at home and did not receive a flu shot this year. Daughter reports mom was wheezing and patient states that she felt short of breath today. Denies chest pain. Some sore throat present. Past Medical/Surgical History Medical Problems: (1) Depression Status: Chronic (3) HLD (hyperlipidemia) Status: Chronic (4) HTN (hypertension) Status: Chronic (5) Hyperlipidemia Nec/Nos Status: Chronic (6) Hypertension Nos Status: Chronic (7) Obesity, Nos Status: Chronic Surgical Problems: (1) S/P tubal ligation Status: Chronic 2) s/p Soniya Family History Patient reports no known family medical history. Social History Smoking Status: Never Smoker Smokeless Tobacco Use: No Alcohol Use: socially Drug Use: none Marital Status: Housing status: lives with significant other Occupational Status: retired (RN) Immunizations History of Influenza Vaccine: Yes Influenza Vaccine Date: May 01, 2016 History of Tetanus Vaccine?: Yes Tetanus Immunization Date: Jun 27, 2011 History of Pneumococcal: Yes Pneumococcal Date: May 01, 2016 History of Hepatitis B Vaccine: Unknown Multi-Drug Resistant Organisms History of MDRO: No Allergies Coded Allergies: Digitalis (Unverified Allergy, Intermediate, "passes out", 08/19/17) Antipyrine (Unverified Allergy, Unknown, unknown, 08/19/17) Benzocaine (Unverified Allergy, Unknown, unknown, 08/19/17) Dicyclomine (Unverified Allergy, Unknown, unknown, 08/19/17) Bacitracin (Unverified Adverse Reaction, Intermediate, "slow to heal areas used on", 08/19/17) Neomycin (Unverified Adverse Reaction, Intermediate, "slow to heal areas used on", 08/19/17) Polymyxin B (Unverified Adverse Reaction, Intermediate, "slow to heal areas used on", 06/20/15) Uncoded Allergies: "HYDROXICUT" (Allergy, Intermediate, "passes out", 06/20/15) ANTIHISTAMINE (Allergy, Intermediate, dizziness, 06/20/15) PT IS NONSPECIFIC JURADO'S GLOVE (Allergy, Intermediate, "passes out", 06/20/15) Home Medications Scheduled Atorvastatin (Lipitor), 40 MG PO DAILY Coenzyme Q10 (Ubidecarenone) (Co Q-10), 150 MG PO DAILY Lisinopril (Zestril), 40 MG PO DAILY Multivitamins/Minerals (Mvi With Minerals), 1 TAB PO DAILY Nadolol (Corgard), 80 MG PO DAILY Sertraline (Zoloft), 200 MG PO DAILY Scheduled PRN Albuterol Hfa (Ventolin Hfa), 2 PUFFS INH Q6H PRN for SOB/Wheezing Review of Systems At least ten systems were reviewed and negative except as indicated in HPI. Physical Ex - H&P Physical Exam Vital Signs Date Time Temp Pulse Resp B/P (MAP) Pulse Ox O2 Delivery O2 Flow Rate FiO2 08/19/17 03:09 85 Room Air 08/19/17 02:44 73 18 94 Room Air 08/19/17 00:37 38.1 73 18 150/75 90 Room Air General Appearance: no apparent distress, + obese Head: normocephalic, atraumatic Eyes: normal inspection, PERRL, sclerae normal ENT: hearing grossly normal, pharynx normal, + pertinent finding (some sinus pressure TTP in frontal sinuses) Neck: no adenopathy, trachea midline Respiratory/Chest: chest non-tender, normal breath sounds, no respiratory distress, no accessory muscle use, + wheezing Cardiovascular: regular rate, rhythm, no edema, no gallop, no JVD, no murmur, normal peripheral pulses Abdomen/GI: normal bowel sounds, soft, + tenderness (diffuse, no guarding), + pertinent finding (obese abdomen limited exam) Back: normal inspection Extremities/Musculoskelatal: normal inspection, no pedal edema Neurologic/Psych: batch dumper II-XII nml as tested, no motor/sensory deficits, alert, normal mood/affect, oriented x 3 Skin: normal color, + diaphoresis Diagnostics - H&P Diagnostics Laboratory Results 08/19/17 01:09 Red Blood Count 4.98, Mean Corpuscular Volume 86.9, Mean Corpuscular Hemoglobin 29.3, Mean Corpuscular Hemoglobin Concent 33.7, Mean Platelet Volume 9.5, Neutrophils (%) (Auto) 80.3, Lymphocytes (%) (Auto) 8.4, Monocytes (%) (Auto) 10.6, Eosinophils (%) (Auto) 0.2, Basophils (%) (Auto) 0.2, Neutrophils # (Auto ) 8.55, Lymphocytes # (Auto) 0.89, Monocytes # (Auto) 1.13, Eosinophils # (Auto ) 0.02, Basophils # (Auto) 0.02 08/19/17 01:09 Test 08/19/17 00:00 08/19/17 01:09 08/19/17 01:16 Influenza Type A (RT-PCR) POS for Influ A (NEG) Influenza Type B (RT-PCR) Neg for Influ B (NEG) White Blood Count 10.64 K/uL (4.8-10.8) Red Blood Count 4.98 M/uL (4.2-5.4) Hemoglobin 14.6 g/dL (12.0-16.0) Hematocrit 43.3 % (37-47) Mean Corpuscular Volume 86.9 fL (80-100) Mean Corpuscular Hemoglobin 29.3 pg (25-34) Mean Corpuscular Hemoglobin Concent 33.7 g/dl (32-36) Platelet Count 164 K/uL (130-400) Mean Platelet Volume 9.5 fL (7.4-10.4) Neutrophils (%) (Auto) 80.3 % Lymphocytes (%) (Auto) 8.4 % Monocytes (%) (Auto) 10.6 % Eosinophils (%) (Auto) 0.2 % Basophils (%) (Auto) 0.2 % Neutrophils # (Auto) 8.55 K/uL (1.4-6.5) Lymphocytes # (Auto) 0.89 K/uL (1.2-3.4) Monocytes # (Auto) 1.13 K/uL (0.11-0.59) Eosinophils # (Auto) 0.02 K/uL (0-0.5) Basophils # (Auto) 0.02 K/uL (0-0.2) RDW Standard Deviation 46.3 fL (36.4-46.3) RDW Coefficient of Variation 14.4 % (11.5-14.5) Immature Granulocyte % (Auto) 0.3 % Immature Granulocyte # (Auto) 0.03 K/uL (0.00-0.02) Prothrombin Time 10.9 SECONDS (9.0-12.0) Prothromb Time International Ratio 1.0 (0.9-1.1) Activated Partial Thromboplast Time 28.2 SECONDS (21.0-31.0) Partial Thromboplastin Ratio 1.1 Anion Gap 9.0 mmol/L (3-11) Est Creatinine Clear Calc Drug Dose 75.9 ml/min Estimated GFR () 69.2 Estimated GFR (Non- 59.7 BUN/Creatinine Ratio 15.2 (10-20) Calcium Level 8.9 mg/dl (8.5-10.1) Total Bilirubin 0.7 mg/dl (0.2-1) Aspartate Amino Transf (AST/SGOT) 27 U/L (15-37) Alanine Aminotransferase (ALT/SGPT) 30 U/L (12-78) Alkaline Phosphatase 107 U/L (45-117) Total Protein 7.7 gm/dl (6.4-8.2) Albumin 3.6 gm/dl (3.4-5.0) Globulin 4.1 gm/dl (2.5-4.0) Albumin/Globulin Ratio 0.9 (0.9-2) Bedside Lactic Acid Venous 1.27 mmol/L (0.90-1.70) Date/Time Source Procedure Growth Status 08/19/17 01:09 Blood Blood Culture Pending Received Results Past 24 Hours Test 08/19/17 00:00 08/19/17 01:09 08/19/17 01:16 Range/Units Influenza Type A (RT-PCR) POS for Influ A NEG Influenza Type B (RT-PCR) Neg for Influ B NEG White Blood Count 10.64 4.8-10.8 K/uL Red Blood Count 4.98 4.2-5.4 M/uL Hemoglobin 14.6 12.0-16.0 g/dL Hematocrit 43.3 37-47 % Mean Corpuscular Volume 86.9 80-100 fL Mean Corpuscular Hemoglobin 29.3 25-34 pg Mean Corpuscular Hemoglobin Concent 33.7 32-36 g/dl Platelet Count 164 130-400 K/uL Mean Platelet Volume 9.5 7.4-10.4 fL Neutrophils (%) (Auto) 80.3 % Lymphocytes (%) (Auto) 8.4 % Monocytes (%) (Auto) 10.6 % Eosinophils (%) (Auto) 0.2 % Basophils (%) (Auto) 0.2 % Neutrophils # (Auto) 8.55 1.4-6.5 K/uL Lymphocytes # (Auto) 0.89 1.2-3.4 K/uL Monocytes # (Auto) 1.13 0.11-0.59 K/uL Eosinophils # (Auto) 0.02 0-0.5 K/uL Basophils # (Auto) 0.02 0-0.2 K/uL RDW Standard Deviation 46.3 36.4-46.3 fL RDW Coefficient of Variation 14.4 11.5-14.5 % Immature Granulocyte % (Auto) 0.3 % Immature Granulocyte # (Auto) 0.03 0.00-0.02 K/uL Prothrombin Time 10.9 9.0-12.0 SECONDS Prothromb Time International Ratio 1.0 0.9-1.1 Activated Partial Thromboplast Time 28.2 21.0-31.0 SECONDS Partial Thromboplastin Ratio 1.1 Sodium Level 135 136-145 mmol/L Potassium Level 3.9 3.5-5.1 mmol/L Chloride Level 100 98-107 mmol/L Carbon Dioxide Level 26 21-32 mmol/L Anion Gap 9.0 3-11 mmol/L Blood Urea Nitrogen 15 7-18 mg/dl Creatinine 0.98 0.60-1.20 mg/dl Est Creatinine Clear Calc Drug Dose 75.9 ml/min Estimated GFR () 69.2 Estimated GFR (Non- 59.7 BUN/Creatinine Ratio 15.2 10-20 Random Glucose 162 70-99 mg/dl Calcium Level 8.9 8.5-10.1 mg/dl Total Bilirubin 0.7 0.2-1 mg/dl Aspartate Amino Transf (AST/SGOT) 27 15-37 U/L Alanine Aminotransferase (ALT/SGPT) 30 12-78 U/L Alkaline Phosphatase 107 45-117 U/L Total Protein 7.7 6.4-8.2 gm/dl Albumin 3.6 3.4-5.0 gm/dl Globulin 4.1 2.5-4.0 gm/dl Albumin/Globulin Ratio 0.9 0.9-2 Bedside Lactic Acid Venous 1.27 0.90-1.70 mmol/L Microbiology Results 08/19/17 Blood Culture, Received Pending 08/19/17 Blood Culture, Received Pending Diagnostic Radiology CXR (wet read): no infiltrate Impression - H&P Impression Assessment and Plan 67 yo female with worsening SOB and DAE presents with Flu A. Hypoxia-2/2 flu, cont supplemental oxygen and Tamiflu. Cont supportive care measures with NSS, antiemetics PRN, pain control PRN Influenza A-as above. HTN-controlled, cont home meds wheezing 2/2 above-cont bronchodilators DVT proph-Yovani Full Code Dispo-to floor DO Vianney Morley Hospitalist Level of Care Med/Surg Resuscitation Status FULL RESUSCITATION VTE Prophylaxis VTE Risk Assessment Done? Y/N: Yes Risk Level: Moderate Given or contraindicated: Enoxaparin (Lovenox)SQ Physical Exam (per Admitting): General Appearance: no apparent distress, + obese Head: normocephalic, atraumatic Eyes: normal inspection, PERRL, sclerae normal ENT: hearing grossly normal, pharynx normal, + pertinent finding (some sinus pressure TTP in frontal sinuses) Neck: no adenopathy, trachea midline Respiratory/Chest: chest non-tender, normal breath sounds, no respiratory distress, no accessory muscle use, + wheezing Cardiovascular: regular rate, rhythm, no edema, no gallop, no JVD, no murmur , normal peripheral pulses Abdomen/GI: normal bowel sounds, soft, + tenderness (diffuse, no guarding), + pertinent finding (obese abdomen limited exam) Back: normal inspection Extremities/Musculoskelatal: normal inspection, no pedal edema Neurologic/Psych: batch dumper II-XII nml as tested, no motor/sensory deficits, alert , normal mood/affect, oriented x 3 Skin: normal color, + diaphoresis Hospital Course 67 yo female with worsening SOB and DAE presents with Flu A. Influenza A Hypoxia-2/2 flu, cont supplemental oxygen and Tamiflu. Cont supportive care measures with NSS, antiemetics PRN, pain control PRN wheezing 2/2 above-cont bronchodilators Clinically much better Continue supportive care CXR is clear Can go home today Diarrhea Likely secondary to Viral gastroenteritis Stool for C Diff and Culture-negative Will give Imodium PRN HTN-controlled, cont home meds Remains stable Depression Continue home med DVT proph-Lovenox Full Code Dispo-to floor Discharge today Total time spent on discharge = 35 minutes This includes examination of the patient, discharge planning, medication reconciliation, and communication with other providers. Discharge Instructions Date of Service Aug 21, 2017. Admission Reason for Admission: Influenza A Discharge Discharge Diagnosis / Problem: Influenza A Discharge Goals Goal(s): Prevent Disease Progression Activity Recommendations Activity Limitations: resume your previous activity . Instructions / Follow-Up Instructions / Follow-Up DR Quintero on 08/26/17 at 1:45PM Current Hospital Diet Patient's current hospital diet: AHA Diet (Heart Healthy) Discharge Diet Recommended Diet: AHA Diet (Heart Healthy) Pending Studies Studies pending at discharge: no Medical Emergencies . Who to Call and When: Medical Emergencies: If at any time you feel your situation is an emergency, please call 911 immediately. . Non-Emergent Contact Non-Emergency issues call your: Primary Care Provider . Past History Medical & Surgical History: (1) Influenza A (2) HLD (hyperlipidemia) (3) Depression (4) Peripheral neuropathy (5) History of diabetic ulcer of foot (6) HTN (hypertension) (7) S/P tubal ligation . "Provider Documentation" section prepared by Matilda Salvador. . VTE Core Measure Inpt VTE Proph given/why not?: Enoxaparin (Lovenox)SQ <Electronically signed by Matilda Salvador M.D.> Signed: 08/21/17 [id number] Additional Copies To Gilmar Quintero III, M.D.
== END 2017-08-21 14:15 | disposition home or self-care (01) | DRG 194 ==
LOC: C.EDB 00:34 → C.MSN 03:21 → ENRESERV 03:39
PROVIDERS: ADMIT Hospitalist; ATTEND Internal Medicine
DX: J10.1 Influenza due to other identified influenza virus with other respiratory manifestations (principal); Z68.41 Body mass index [BMI] 40.0-44.9, adult; R09.02 Hypoxemia; J10.2 Influenza due to other identified influenza virus with gastrointestinal manifestations; F32.9 Major depressive disorder, single episode, unspecified; I10 Essential (primary) hypertension; E78.5 Hyperlipidemia, unspecified; E66.9 Obesity, unspecified; Z79.899 Other long term (current) drug therapy; Z77.22 Contact with and (suspected) exposure to environmental tobacco smoke (acute) (chronic); Z88.1 Allergy status to other antibiotic agents; Z88.8 Allergy status to other drugs, medicaments and biological substances; Z88.4 Allergy status to anesthetic agent

== ENCOUNTER 2019-08-06 12:04 | Inpatient (IN) ==
[2019-08-06 13:00] LABS: Appearance Urine Clear (Clear); Bilirubin Urine Negative (Negative); Blood Urine Negative (Negative); Color Urine Dark Yellow; Glucose Urine UA Negative (Negative); Ketones Urine Trace (Negative); Leukocyte Esterase Urine Negative (Negative); Nitrite Urine Negative (Negative); Protein Urine Negative (Negative); Specific Gravity Urine 1.028 (1.000-1.030); Urobilinogen Urine Negative (Negative)
[2019-08-06 13:29] LABS: Amphetamines+Metham, Urine Neg (Neg); Barbiturates, Urine Neg (Neg); Benzodiazepine, Urine Neg (Neg); Cocaine, Urine Neg (Neg); MDMA (Ecstacy), Urine Neg (Neg); Methadone, Urine Neg (Neg); Opiate, Urine Neg (Neg); Phencyclidine, Urine Neg (Neg)
[2019-08-06 13:29] LABS: Basophils # (auto) 0.02 K/uL (0-0.2); Basophils % (auto) 0.1 %; Eosinophils # (auto) 0.31 K/uL (0-0.5); Eosinophils % (auto) 2.3 %; Hematocrit (blood only) 43.1 % (37-47); Hemoglobin 14.4 g/dL (12.0-16.0); Immature Granulocytes # (auto) 0.03 K/uL (0.00-0.02); Immature Granulocytes % (auto) 0.2 %; Lymphocytes % (auto) 12.5 %; Mean Corpuscular Hemoglobin 29.5 pg (25-34); Mean Corpuscular Hgb Conc 33.4 g/dL (32-36); Mean Corpuscular Volume 88.3 fL (80-100); Mean Platelet Volume 9.5 fL (7.4-10.4); Monocytes # (auto) 0.96 K/uL (0.11-0.59); Monocytes % (auto) 7.1 %; Neutrophils # (auto) 10.59 K/uL (1.4-6.5); Neutrophils % (auto) 77.8 %; Platelet Count 240 K/uL (130-400); RDW Coefficient of Variation 14.3 % (11.5-14.5); RDW Standard Deviation 46.5 fL (36.4-46.3); Red Blood Count 4.88 M/uL (4.2-5.4); White Blood Count 13.61 K/uL (4.8-10.8)
[2019-08-06 13:42] LABS: Pregnancy Test, Serum Negative (Negative)
[2019-08-06 13:47] LABS: Albumin Level 3.3 gm/dl (3.4-5.0); BUN Creatinine Ratio 20.2 (10-20); Calcium 8.9 mg/dl (8.5-10.1); Creatinine Clr Calc Pharmacy 71.1 ml/min; Est GFR (African American) 66.6; Est GFR (Non-African American) 57.4; Potassium 4.6 mmol/L (3.5-5.1)
[2019-08-06 13:48] LABS: Acetaminophen < 2 ug/ml (10-30); Salicylate < 1.7 mg/dl (2.8-20)
[2019-08-06 13:57] LABS: Albumin Globulin Ratio 0.8 (0.9-2); Bilirubin,Total 0.5 mg/dl (0.2-1); Globulin 3.9 gm/dl (2.5-4.0); Thyroid Stimulating Hormone 8.58 uIu/ml (0.300-4.500); Total Protein 7.2 gm/dl (6.4-8.2)
[2019-08-06 14:10] LABS: T4 Free Thyroxine 0.94 ng/dl (0.8-1.6)
--- NOTE | 2019-08-06 16:16 | Emergency Department Note ---
Entered by Rosa Mejia acting as a scribe for Jonny Howard M.D. History of Present Illness General Chief complaint: Mental Health Evaluation Stated complaint: MENTAL HEALTH ASSESSMENT Time Seen by Provider: 08/06/19 12:25 Source: patient History of Present Illness Onset (ago): week(s) (a few weeks ago) Location: head Pain Consistency: + other (worsening) Quality: + other (mental health) Associated symptoms: + denies other symptoms (abdominal pain, suicidal thoughts, homicidal thoughts) The patient is a 69 year old female who presents to the Emergency Room for a mental health evaluation. The patient states that for the last 2.5 weeks she has been speaking with a corrections caseworker about the paperwork for her baby. She states that she 1.5 years ago she gave to a baby she named Radha and had her shipped to [facility] because her brother had MRSA. She states that she didnt want to bring the baby home and expose her to that. She notes that she has 4 other babies there and that she calls frequently to get updates on how they are doing. She states that no one believes her that they are real. The patient states that no one also believes her that she delivered the baby herself as no one wanted to help. She states that she also is now. She reports that 8 days ago she had the feeling of a baby kicking. The patients states that this fixation started 6 months ago and has gotten worse over the past few weeks. He states that she tried even calling her PCP about it and they hung up on her before calling her back because they were concerned. He notes that yesterday they sent 3 police officers to their house to make sure everything is okay. He notes that she has not missed any of her medications either and thinks they may need upped. He states that this has happened before and she was admitted to the [facility] a few years ago. The patient denies abdominal pain, suicidal thoughts, and homicidal thoughts. Home Medications Home Medications Medication Instructions Recorded Confirmed Type Multivitamin 50 Plus 1 tab PO QAM 02/17/19 08/06/19 History [place] 3 Slim Max 1 cap PO QAM 02/17/19 08/06/19 History PNV cmb#95-ferrous fumarate-FA 1 tab PO QAM 02/17/19 08/06/19 History [] aspirin 81 mg PO QAM 02/17/19 08/06/19 History atorvastatin 40 mg PO QAM 02/17/19 08/06/19 History calcium carbonate [Calcium 500] 500 mg PO QAM 02/17/19 08/06/19 History lisinopril 40 mg PO QAM 02/17/19 08/06/19 History nadolol 80 mg PO QAM 02/17/19 08/06/19 History polyethylene glycol 3350 [Miralax] 17 g PO DAILY PRN 02/17/19 08/06/19 History sertraline 200 mg PO QAM 02/17/19 08/06/19 History triamcinolone acetonide 1 applic TOPICAL BID PRN 02/17/19 08/06/19 History turmeric 800 mg PO QAM 02/17/19 08/06/19 History Allergies Allergy/AdvReac Type Severity Reaction Status Date / Time dicyclomine Allergy Intermediate DRIES OUT Verified 03/25/19 08:28 MOUTH Digitalis Glycosides Allergy Intermediate "passes Verified 03/25/19 08:28 out" digitalis leaf Allergy Intermediate PASSES OUT Verified 03/25/19 08:28 digoxin Allergy Intermediate PASSED OUT Verified 03/25/19 08:28 glycerin [From Auralgan] Allergy Intermediate FLUID FROM Verified 03/25/19 08:28 EAR nickel Allergy Intermediate SKIN Verified 03/25/19 08:28 IRRITATION phentermine Allergy Intermediate VERY SICK Verified 03/25/19 08:28 TO STOMACH bacitracin AdvReac Mild "slow to Verified 03/25/19 08:28 heal areas used on" neomycin AdvReac Mild "slow to Verified 03/25/19 08:28 heal areas used on" polymyxin B AdvReac Mild "slow to Verified 03/25/19 08:28 heal areas used on" ANTIHISTAMINE Allergy Intermediate dizziness, Uncoded 03/24/19 07:49 BLURRED VISION JURADO'S GLOVE Allergy Intermediate "passes Uncoded 03/24/19 07:49 out" Past Med/Surg History Medical History Anemia Anxiety Chronic obstructive lung disease Depression Fibromyalgia Hyperlipidemia Hypertension Osteoarthritis Peripheral neuropathy BLE Poor historian FLIGHT OF IDEAS Retina disorder LEFT EYE RETINA PROBLEM Schizophrenia Stress incontinence Transient ischemic attack (TIA) "IN THE " Surgical History History of bilateral tubal ligation History of cholecystectomy History of colonoscopy History of eye surgery RT EYE LASER History of open reduction and internal fixation (ORIF) procedure LEFT TIBIA History of tooth extraction Hx of left cataract extraction Family History Other Family history non-contributory Social History Preferred Language: Maori Communication Ability: Effective Engineering Secretary Required: No Beliefs That Will Affect Care: None marital status: Current Living Situation: Spouse Feels Safe at Home: Yes Smoking Status: Never smoker Second Hand Exposure: Yes (IN THE PAST) ; Hx Alcohol Use: Yes Hx Substance Use: No Review of Systems See HPI for pertinent positives & negatives. and A total of 10 systems reviewed and were otherwise negative Physical Exam Vital Signs Vital Signs - 24 hr 08/06/19 12:19 08/06/19 14:04 Temperature 37.5 C Temperature Source Oral Pulse Rate 76 Pulse Rate [Finger] 68 Respiratory Rate 18 20 Respiratory Depth Normal Blood Pressure 179/84 H Blood Pressure [Left Arm] 157/80 H Blood Pressure Mean 115 Blood Pressure Mean [Left Arm] 105 Pulse Oximetry 94 98 Oxygen Delivery Method Room Air Room Air Sepsis Recent Fever Within 48 Hours No Sepsis New/Unexplained Change in Mental Status No Sepsis Action Taken by Nursing No Action Required GENERAL: Awake, alert, well-appearing, in no distress HENT: Normocephalic, atraumatic. EYES: Normal conjunctiva. Sclera non-icteric. RESPIRATORY: Normal respiratory effort. CARDIAC: Normal rate. GI: Soft, non-distended. No tenderness to palpation. LOWER EXTREMITIES: Calves are equal size bilaterally and non-tender. No edema NEURO: No sensory or motor deficits noted. No facial droop and no slurred speech. SKIN: Warm and dry. No rash or jaundice noted. PSYCH: No HI or SI. Poor insight. Perseverates on recent pregnancies and that she is currently . Course Course 1237: The patient was evaluated in room A6. A complete history and physical exam was performed. 1800: The patient was signed out to Dr. Jenkins at the change of shift. Medical Decision Making Differential Diagnosis Differential diagnoses considered include mood disorder, infection, hypoglycemia, electrolyte abnormalities, cardiac sources, intracerebral event, toxicologic, neurologic, as well as others. Medical Records Attestation: I reviewed the patient's medical records. Home Medications Current Medication List: was personally reviewed by me Laboratory Data Attestation: I reviewed the patient's lab results. Result diagrams: 08/06/19 13:03 08/06/19 13:03 Lab Results 08/06/19 08/06/19 08/06/19 Range/Units 12:50 12:50 13:03 WBC 13.61 H (4.8-10.8) K/uL RBC 4.88 (4.2-5.4) M/uL Hgb 14.4 (12.0-16.0) g/dL Hct 43.1 (37-47) % MCV 88.3 (80-100) fL MCH 29.5 (25-34) pg MCHC 33.4 (32-36) g/dL RDW Std Deviation 46.5 H (36.4-46.3) fL RDW Coeff of [place] 14.3 (11.5-14.5) % Plt Count 240 (130-400) K/uL MPV 9.5 (7.4-10.4) fL Immature Gran % (Auto) 0.2 % Neut % (Auto) 77.8 % Lymph % (Auto) 12.5 % [place] % (Auto) 7.1 % Eos % (Auto) 2.3 % Baso % (Auto) 0.1 % Immature Gran # (Auto) 0.03 H (0.00-0.02) K/uL Neut # (Auto) 10.59 H (1.4-6.5) K/uL Lymph # (Auto) 1.70 (1.2-3.4) K/uL [place] # (Auto) 0.96 H (0.11-0.59) K/uL Eos # (Auto) 0.31 (0-0.5) K/uL Baso # (Auto) 0.02 (0-0.2) K/uL Sodium (136-145) mmol/L Potassium (3.5-5.1) mmol/L Chloride (98-107) mmol/L Carbon Dioxide (21-32) mmol/L Anion Gap (3-11) BUN (7-18) mg/dl Creatinine (0.6-1.2) mg/dl Est Cr Clr Drug Dosing ml/min Est GFR ( Amer) Est GFR (Non-Af Amer) BUN/Creatinine Ratio (10-20) Glucose (70-99) mg/dl Calcium (8.5-10.1) mg/dl Total Bilirubin (0.2-1) mg/dl AST (15-37) U/L ALT (12-78) U/L Alkaline Phosphatase (45-117) U/L Total Protein (6.4-8.2) gm/dl Albumin (3.4-5.0) gm/dl Globulin (2.5-4.0) gm/dl Albumin/Globulin Ratio (0.9-2) TSH (0.300-4.500) uIu/ml Free T4 (0.8-1.6) ng/dl HCG, Qual (Negative) Urine Color Dark Yellow Urine Appearance Clear (Clear) Urine pH 5.0 (4.5-7.5) Ur Specific [place] 1.028 (1.000-1.030) Urine Protein Negative (Negative) Urine Glucose (UA) Negative (Negative) Urine Ketones Trace H (Negative) Urine Blood Negative (Negative) Urine Nitrite Negative (Negative) Urine Bilirubin Negative (Negative) Urine Urobilinogen Negative (Negative) Ur Leukocyte Esterase Negative (Negative) Nasal Screen MRSA (PCR) (Negative) Salicylates (2.8-20) mg/dl Urine Opiates Screen Neg (Neg) Ur Methadone, Qual Neg (Neg) Acetaminophen (10-30) ug/ml Urine Barbiturates Neg (Neg) Ur Phencyclidine (PCP) Neg (Neg) U Amphetamin/Meth Scrn Neg (Neg) MDMA (Ecstasy) Screen Neg (Neg) U Benzodiazepines Scrn Neg (Neg) Ur Cocaine Metabolite Neg (Neg) U Marijuana (THC) Screen Neg (Neg) Ethyl Alcohol mg/dL (0-3) mg/dl 08/06/19 08/06/19 08/06/19 Range/Units 13:03 13:03 13:03 WBC (4.8-10.8) K/uL RBC (4.2-5.4) M/uL Hgb (12.0-16.0) g/dL Hct (37-47) % MCV (80-100) fL MCH (25-34) pg MCHC (32-36) g/dL RDW Std Deviation (36.4-46.3) fL RDW Coeff of [place] (11.5-14.5) % Plt Count (130-400) K/uL MPV (7.4-10.4) fL Immature Gran % (Auto) % Neut % (Auto) % Lymph % (Auto) % [place] % (Auto) % Eos % (Auto) % Baso % (Auto) % Immature Gran # (Auto) (0.00-0.02) K/uL Neut # (Auto) (1.4-6.5) K/uL Lymph # (Auto) (1.2-3.4) K/uL [place] # (Auto) (0.11-0.59) K/uL Eos # (Auto) (0-0.5) K/uL Baso # (Auto) (0-0.2) K/uL Sodium 140 (136-145) mmol/L Potassium 4.6 (3.5-5.1) mmol/L Chloride 107 (98-107) mmol/L Carbon Dioxide 31 (21-32) mmol/L Anion Gap 2.0 L (3-11) BUN 20 H (7-18) mg/dl Creatinine 1.00 (0.6-1.2) mg/dl Est Cr Clr Drug Dosing 71.1 ml/min Est GFR ( Amer) 66.6 Est GFR (Non-Af Amer) 57.4 BUN/Creatinine Ratio 20.2 H (10-20) Glucose 93 (70-99) mg/dl Calcium 8.9 (8.5-10.1) mg/dl Total Bilirubin 0.5 (0.2-1) mg/dl AST 17 (15-37) U/L ALT 25 (12-78) U/L Alkaline Phosphatase 123 H (45-117) U/L Total Protein 7.2 (6.4-8.2) gm/dl Albumin 3.3 L (3.4-5.0) gm/dl Globulin 3.9 (2.5-4.0) gm/dl Albumin/Globulin Ratio 0.8 L (0.9-2) TSH 8.580 H (0.300-4.500) uIu/ml Free T4 0.94 (0.8-1.6) ng/dl HCG, Qual (Negative) Urine Color Urine Appearance (Clear) Urine pH (4.5-7.5) Ur Specific [place] (1.000-1.030) Urine Protein (Negative) Urine Glucose (UA) (Negative) Urine Ketones (Negative) Urine Blood (Negative) Urine Nitrite (Negative) Urine Bilirubin (Negative) Urine Urobilinogen (Negative) Ur Leukocyte Esterase (Negative) Nasal Screen MRSA (PCR) (Negative) Salicylates < 1.7 L (2.8-20) mg/dl Urine Opiates Screen (Neg) Ur Methadone, Qual (Neg) Acetaminophen < 2 L (10-30) ug/ml Urine Barbiturates (Neg) Ur Phencyclidine (PCP) (Neg) U Amphetamin/Meth Scrn (Neg) MDMA (Ecstasy) Screen (Neg) U Benzodiazepines Scrn (Neg) Ur Cocaine Metabolite (Neg) U Marijuana (THC) Screen (Neg) Ethyl Alcohol mg/dL < 3.0 (0-3) mg/dl 08/06/19 08/06/19 Range/Units 13:03 15:20 WBC (4.8-10.8) K/uL RBC (4.2-5.4) M/uL Hgb (12.0-16.0) g/dL Hct (37-47) % MCV (80-100) fL MCH (25-34) pg MCHC (32-36) g/dL RDW Std Deviation (36.4-46.3) fL RDW Coeff of [place] (11.5-14.5) % Plt Count (130-400) K/uL MPV (7.4-10.4) fL Immature Gran % (Auto) % Neut % (Auto) % Lymph % (Auto) % [place] % (Auto) % Eos % (Auto) % Baso % (Auto) % Immature Gran # (Auto) (0.00-0.02) K/uL Neut # (Auto) (1.4-6.5) K/uL Lymph # (Auto) (1.2-3.4) K/uL [place] # (Auto) (0.11-0.59) K/uL Eos # (Auto) (0-0.5) K/uL Baso # (Auto) (0-0.2) K/uL Sodium (136-145) mmol/L Potassium (3.5-5.1) mmol/L Chloride (98-107) mmol/L Carbon Dioxide (21-32) mmol/L Anion Gap (3-11) BUN (7-18) mg/dl Creatinine (0.6-1.2) mg/dl Est Cr Clr Drug Dosing ml/min Est GFR ( Amer) Est GFR (Non-Af Amer) BUN/Creatinine Ratio (10-20) Glucose (70-99) mg/dl Calcium (8.5-10.1) mg/dl Total Bilirubin (0.2-1) mg/dl AST (15-37) U/L ALT (12-78) U/L Alkaline Phosphatase (45-117) U/L Total Protein (6.4-8.2) gm/dl Albumin (3.4-5.0) gm/dl Globulin (2.5-4.0) gm/dl Albumin/Globulin Ratio (0.9-2) TSH (0.300-4.500) uIu/ml Free T4 (0.8-1.6) ng/dl HCG, Qual Negative (Negative) Urine Color Urine Appearance (Clear) Urine pH (4.5-7.5) Ur Specific [place] (1.000-1.030) Urine Protein (Negative) Urine Glucose (UA) (Negative) Urine Ketones (Negative) Urine Blood (Negative) Urine Nitrite (Negative) Urine Bilirubin (Negative) Urine Urobilinogen (Negative) Ur Leukocyte Esterase (Negative) Nasal Screen MRSA (PCR) Negative (Negative) Salicylates (2.8-20) mg/dl Urine Opiates Screen (Neg) Ur Methadone, Qual (Neg) Acetaminophen (10-30) ug/ml Urine Barbiturates (Neg) Ur Phencyclidine (PCP) (Neg) U Amphetamin/Meth Scrn (Neg) MDMA (Ecstasy) Screen (Neg) U Benzodiazepines Scrn (Neg) Ur Cocaine Metabolite (Neg) U Marijuana (THC) Screen (Neg) Ethyl Alcohol mg/dL (0-3) mg/dl Blood Pressure Blood Pressure Findings: Elevated blood pressure Blood Pressure Disposition: Referred to patients primary care provider MDM Narrative Patient is a 69-year-old female with a past medical history of schizophrenia and hypertension presenting here today with and daughter. Patient reports that she was approximately 18 months ago and had a baby in [place]. States she is concerned to be now and states over last day she feels life in her abdomen. Patient states she feels life in her abdomen. Patient's states that she been having worsening delusions over the past 6 months but is now becoming difficult to handle at home. No SI or HI attempts have been reported. reports he is been intermittently taking medications. No focal deficits. Benign abdomen. Basic laboratory studies were completed. Has a history of delusions in the past. Concerned that she has worsening psychosis and have some concerns regarding her ability to care for self given her singular fixation on suppose it . mill manager assisted with evaluation. Believe inpatient psychiatric care would be beneficial for the patient. Referral to [address] [place] [address] Jenkins pending acceptance. Impression & Plan Delusions, Delusion of Discharge Plan Visit Data Chief Complaint: Mental Health Evaluation Stated Complaint: MENTAL HEALTH ASSESSMENT ED Provider: Jonny Howard Discharge Problem: Delusions, Delusion of Patient Disposition: Still a Patient Forms Stand Alone Forms: My [facility], Suicide Prevention Resources Prescriptions Prescriptions: No Action atorvastatin 40 mg Tablet 40 mg PO QAM RF: 0 nadolol 80 mg Tablet 80 mg PO QAM RF: 0 sertraline 100 mg Tablet 200 mg PO QAM RF: 0 aspirin 81 mg Tablet,Delayed Release (Dr/Ec) 81 mg PO QAM RF: 0 calcium carbonate [Calcium 500] 500 mg calcium (1,250 mg) Tablet 500 mg PO QAM RF: 0 triamcinolone acetonide 0.025 % Cream 1 applic TOPICAL BID PRN (Reason: SKIN IRRITATIONS) RF: 0 polyethylene glycol 3350 [Miralax] 17 gram/dose Powder 17 g PO DAILY PRN (Reason: Constipation) RF: 0 lisinopril 40 mg Tablet 40 mg PO QAM RF: 0 PNV cmb#95-ferrous fumarate-FA [] 28 mg iron- 800 mcg Tablet 1 tab PO QAM RF: 0 turmeric 400 mg Capsule 800 mg PO QAM RF: 0 [place] 3 Slim Max 1 cap PO QAM RF: 0 Multivitamin 50 Plus Tablet 1 tab PO QAM RF: 0 Referrals Referrals: Gilmar Quintero MD [Primary Care Provider] - The scribe's documentation has been prepared under my direction and personally r eviewed by me in its entirety. I confirm that the note above accurately reflects all work, treatment, procedures, and medical decision making performed by me.
[2019-08-06] MEDS ORDERED: MAGNESIUM HYDROXIDE SUSP 30 ML UDC PO PRN (17:58)
[2019-08-06] MEDS ORDERED: BISMUTH SUBSALICYLATE PER ML OMNICELL CHARGE PO PRN (17:58)
[2019-08-06] MEDS ORDERED: SODIUM CHLORIDE 0.65% NA SOLN 45 ML (OCEAN) PRN (17:58)
[2019-08-06] MEDS ORDERED: ALUMINUM/MAGNESIUM SUSP 30 ML UDC PO PRN (17:58)
--- NOTE | 2019-08-06 18:31 | Emergency Department Note ---
ED Visit Note I received this patient at change of shift signout from Dr. Howard. Please see his note for complete history and physical. The patient was medically cleared previously. He was evaluated by the mental health manager of case. The patient has a history of paranoia and schizophrenia. She has had some delusional thoughts and her family members brought her to the emergency department for possible mental health evaluation as well as possible admission. The patient was felt to be a good candidate for inpatient management. The patient was evaluated by the delegate from [address]. and was felt to be a good candidate for admission to our facility. The 201 paperwork was signed by myself. The patient had no needs while she was in the emergency department under my care. .
[2019-08-07] MEDS: nadoloL 40 MG TAB PO SCH (08:33)
[2019-08-07] MEDS: ASPIRIN 81 MG ECTAB PO SCH (08:33)
[2019-08-07] MEDS: CALCIUM CARBONATE 1250MG TAB PO SCH (08:33)
[2019-08-07] MEDS: MULTIVITAMIN TAB PO SCH (08:33)
[2019-08-07] MEDS: ATORVASTATIN 40 MG TAB PO SCH (08:33)
[2019-08-07] MEDS: lisinopriL 40 MG TAB PO SCH (08:33)
[2019-08-07] MEDS: PRENATAL VITAMIN 1 TAB PO SCH (08:33)
[2019-08-07] MEDS ORDERED: TURMERIC 800 MG PO SCH (09:00)
[2019-08-07] MEDS ORDERED: [UNRECOGNIZED DRUG - OTHER] PO SCH (09:00)
--- NOTE | 2019-08-07 10:11 | History & Physical ---
Date of Service August 07, 2019 Impression / Recommendations Impression 69-year-old female admitted voluntarily for inpatient psychiatric treatment on 08/06/2019 after presenting to the ED for mental health evaluation. Patient verbalized the belief that she gave recently, her story varies from 1 baby 1.5 years ago to as many as 5 babies as recently as 06/19/2019. Patient states that her baby is remained in [place], [place] and she has been preoccupied with how to get the baby's back. It appears as though patient's accompanied her to the ED, where he verbalize concern that the patient has not been caring for her needs, is not showering, and has not been keeping up with her usual daily activities. Patient was cooperative with recommendation for psychiatric hospitalization, and was admitted voluntarily for treatment. It is reported the patient had been admitted to our unit last in 1992, and there are unfortunately no easily accessible records from that hospitalization. Patient states more recently she was admitted to [facility], but is unable to provide an accurate timeline of this. It is obvious that we will require collateral information from the patient's family to better piece together a timeline of patient's delusional presentation. Given history of numerous psychiatric hospitalizations, delusional thought process, history of mood symptoms, and current flight of ideas and looseness of associations we will proceed with a working diagnosis of schizoaffective disorder, bipolar type. Additional information will be helpful to further clarify diagnosis. It was recommended to patient that aripiprazole 5 mg daily be initiated, as this can target symptoms of psychosis in addition to depressive symptoms. Risks, benefits, and potential side effects were reviewed with the patient, who verbalized understanding and is agreeable with trial of the medication. Pt will be encouraged to participate in group programming as appropriate. We will encourage a family meeting to discuss discharge and safety planning. It will be recommended that patient be referred for a therapist and psychiatrist prior to discharge. Inpatient psychiatric hospitalization is medically necessary given level thought disorganization, symptoms of acute psychosis, and family reports of demonstrated inability to care for self in the outpatient setting. Pt has no psychiatric providers which puts her at increased risk of harm to self or others if discharged prematurely. Dr. Marquis Sanford was directly involved in review and discussion of the patient's case and participated in medical decision making regarding treatment recommendations. (1) Schizoaffective disorder, bipolar type: 08/07 - Admitted to a locked inpatient behavioral health unit, on q15 minute safety checks - Initiate aripiprazole 5mg qAM to target psychosis, with indication for depressive symptoms as well - risks, benefits, and potential side effects reviewed. Pt verbalized understanding and is agreeable - Will discontinue sertraline as patient reports nausea has prevented regular compliance; she has only been taking it every 4-5 days - Will require collateral information from and/or children regarding her psychiatric history - are recent admissions only list depression - Encourage participation in group and recreational therapies - Encourage family meeting to involve outpatient supports in safety planning - Arrange appropriate aftercare with referrals for a therapist and psychiatrist at discharge (2) Delusion of : 08/07 - Patient's reports are inconsistent. She reports giving to 5 babies recently, but then also told ED staff that she believes she is currently - ruled out - urine HCG is negative; patient admits to tubal ligation in 1983 Risk Factors Assessment Male: No : Yes Mental Health Diagnoses: Yes Previous Psychiatric Hospitalization: Yes Protective Factors Assessment Orthodox Beliefs: Yes : Yes Employed: No Stable Relationships: Yes Supportive Family: Yes Psychiatric History Identifying Data ZEHRA TORRES is a 69-year-old F who currently lives in [place] with her . Pt only reports a history of depression though is familiar with the term "schizophrenia". She was admitted on 08/06/19 17:58 on a 201 voluntary commitment for delusions and reported inability to care for self according to . Information gathered from the patient is not considered to be particularly reliable. Chief Complaint "I think the Zoloft is kicking in and I'm feeling better." History of Present Illness Zehra Boland" Marciano is a 69-year-old female admitted voluntarily for inpatient psychiatric treatment on 08/06/2019 after presenting to the ED accompanied by her for reported delusions of . Patient's had reportedly verbalized concern that the patient has not been caring for herself for the past several weeks and that he is "worried she is going to get hurt." It appears as though patient does have a history of meeting with outpatient psychiatrist; however, she is only currently prescribed sertraline 200 mg daily supplied by her PCP. In the ED, patient had reported calling her PCP's office about concern surrounding "missing babies", which the patient believes are her children and that they are still in [place] where she delivered them. Police were requested to do a wellness check, and brought the patient to the ED for mental health evaluation. In the ED, patient had reported numerous psychiatric hospitalizations in the past specifically at [facility] - most recent admission to our unit was reportedly 1992. Patient is cooperative with psychiatric evaluation. She provides verbal consent to allow Cynthia Gonzalez PA-C to observe today's encounter. The patient states that she is doing well, admitting "I think the Zoloft is kicking in and I am feeling better." She verbalizes this statement, but also admits that she has not taken her Zoloft and 4 or 5 days. She reports taking 200 mg of sertraline daily but admits that it causes nausea, leading her to hold the medication for 4 to 5 days before resuming again. She states "I am hoping someone could find something better than Zoloft for mood scallop raker", citing the nausea as her biggest concern. Patient states that she has been taking sertraline since "the early ." She quickly begins telling this provider about the fact that she has "5 kids to raise. I just found out I have 5 more little babies over a [place]." According to the patient, she was caring for her mother at a medical facility in [place] when she "went into labor" and delivered 5 infants. She states they were born on 06/19/2019, and are all "a year and 1 month old." The patient s tates she took the babies, wrapped up in a blanket, and took him to the emergency room of the medical facility. Patient states she has not seen the children since she delivered them. The patient states "my does not believe I had any babies because none of them are Mongoloid." Patient firmly believes that she did give to these children, and is not able to offer an explanation as to why she is able to give at the age of 69. Patient does admit that she had a tubal ligation in 1983, but believes that this was reversed at some point which allowed her to become again. Patient states that she also has 5 adult children whom she had her have already raised. Two of which, the patient states from a local to the [facility] area. Other cm points the patient brings up is the belief that her has been unfaithful, having had relations with the patient mother and other family members. She states, "I'm staying with him because they kept telling me ''if you want those babies you need a '." Pt also mentions a belief that she has 10 bullets in her head "one of which is Bettye Ivan. One has my mother's name on it and another one has my brother's name." In sharing these events patient frequently uses vague pronouns - i.e. "I hope that she can find a medication that works better", "they told me I have 5 babies waiting for me", etc. When asked specifically who these people are, she is unable to provide an answer, simply stating "I'm not really sure." Pt was asked about history of psychiatric diagnosis, and admits she was diagnosed with depression in the past. Pt states that once the sertraline was started, "the mood got better, and then turned into anxiety." Pt is not able to clearly articulate symptoms of depression or anxiety at this time. She was asked if any other diagnoses had been discussed such as bipolar disorder, schizophrenia, and others. She states, "schizophrenia, I think someone said that once." Pt does admit to familiarity with several antipsychotic medications, believing she has tried: chlorpromazine, aripiprazole, risperidone, and haloperidol. She also believes she had been prescribed bupropion, paroxetine, and alprazolam in the past. While patient is limited in her ability to discuss past psychiatric treatment, she does casually mention words such as "tardive dyskinesia" and "partial hospitalization." She states she has not worked with an outpatient psychiatrist in over a decade, and that her PCP has been prescribing her medications. Pt denies SI/HI, SIB, and auditory of visual hallucinations. Past Psychiatric History Previous Psych History: Largely unknown as patient's reports are not believed to be reliable Previous Psych Admissions: Limited history at time of assessment - it is believed patient was admitted to [facility] in 1992, and possibly had a hospitalization at the [facility] in 2004. Past Medication Trials: Reliability of list is uncertain - patient reported familiarity with the following medications: 1. Paxil 2. Wellbutrin 3. Zoloft 4. Xanax 5. Haldol 6. Risperdal 7. Abilify 8. Thorazine Allergies Allergy/AdvReac Type Severity Reaction Status Date / Time dicyclomine Allergy Intermediate DRIES OUT Verified 03/25/19 08:28 MOUTH Digitalis Glycosides Allergy Intermediate "passes Verified 03/25/19 08:28 out" digitalis leaf Allergy Intermediate PASSES OUT Verified 03/25/19 08:28 digoxin Allergy Intermediate PASSED OUT Verified 03/25/19 08:28 glycerin [From Auralgan] Allergy Intermediate FLUID FROM Verified 03/25/19 08:28 EAR nickel Allergy Intermediate SKIN Verified 03/25/19 08:28 IRRITATION phentermine Allergy Intermediate VERY SICK Verified 03/25/19 08:28 TO STOMACH bacitracin AdvReac Mild "slow to Verified 03/25/19 08:28 heal areas used on" neomycin AdvReac Mild "slow to Verified 03/25/19 08:28 heal areas used on" polymyxin B AdvReac Mild "slow to Verified 03/25/19 08:28 heal areas used on" ANTIHISTAMINE Allergy Intermediate dizziness, Uncoded 03/24/19 07:49 BLURRED VISION JURADO'S GLOVE Allergy Intermediate "passes Uncoded 03/24/19 07:49 out" Home Medications Home Medications Medication Instructions Recorded Confirmed Type Multivitamin 50 Plus 1 tab PO QAM 02/17/19 08/06/19 History May 3 Slim Max 1 cap PO QAM 02/17/19 08/06/19 History PNV cmb#95-ferrous fumarate-FA 1 tab PO QAM 02/17/19 08/06/19 History [] aspirin 81 mg PO QAM 02/17/19 08/06/19 History atorvastatin 40 mg PO QAM 02/17/19 08/06/19 History calcium carbonate [Calcium 500] 500 mg PO QAM 02/17/19 08/06/19 History lisinopril 40 mg PO QAM 02/17/19 08/06/19 History nadolol 80 mg PO QAM 02/17/19 08/06/19 History polyethylene glycol 3350 [Miralax] 17 g PO DAILY PRN 02/17/19 08/06/19 History sertraline 200 mg PO QAM 02/17/19 08/06/19 History triamcinolone acetonide 1 applic TOPICAL BID PRN 02/17/19 08/06/19 History turmeric 800 mg PO QAM 02/17/19 08/06/19 History Family History Family History of: Doesn't Know Alcohol History Hx of Alcohol Use Over the Past 12 Months: No AUDIT Total Score: 0 "That little sample they give you at the [facility], that's it" Smoking Use Have You Smoked or Used Tobacco Products in the Last 30 Days: No Smoking Status: Never smoker Substance History Hx of Prescription Med Misuse Over the Past 12 Months: No Hx of Over the Counter Med Misuse Over the Past 12 Months: No Hx of Inhalent Misuse Over the Past 12 Months: No Hx of Organic Substance Use Over the Past 12 Months: No Hx of Illegal Substances/Street Drug Use Over Past 12 Months: No Problems as a Result of Past Substance Use: None Identified Personal History Living Arrangements: Home (with ) Highest Grade Completed: College (BS in nursing) 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); [employer]) Marital Status: (to Jf) Number Of Children: reports 5 adult children in addition to "my 5 little babies" Beliefs That Will Affect Care: Spiritual Current Legal Problems: No Hx Legal Problems: No Hx Traumatic Life Events: Yes Patient History Medical History Anemia Anxiety Chronic obstructive lung disease Depression Fibromyalgia Hyperlipidemia Hypertension Osteoarthritis Peripheral neuropathy BLE Poor historian FLIGHT OF IDEAS Retina disorder LEFT EYE RETINA PROBLEM Schizophrenia Stress incontinence Transient ischemic attack (TIA) "IN THE 80'S" Surgical History History of bilateral tubal ligation History of cholecystectomy History of colonoscopy History of eye surgery RT EYE LASER History of open reduction and internal fixation (ORIF) procedure LEFT TIBIA History of tooth extraction Hx of left cataract extraction Family History Other Family history non-contributory Social History Preferred Language: Trinidadian Communication Ability: Effective 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 Beliefs That Will Affect Care: Spiritual marital status: Current Living Situation: Spouse Feels Safe at Home: Yes Smoking Status: Never smoker Second Hand Exposure: Yes (IN THE PAST) ; Hx Alcohol Use: Yes Hx Substance Use: No Review of Systems Review of Systems: Constitutional: reports episodic dizziness Cardiovascular: denied Respiratory: reports intermittent cough with "cachexia" (which per patient means think sputum) Gastrointestinal: denied Neurological: denied Psychiatric: denies symptoms other than stated above Total of at least 10 systems reviewed, pertinent positives as above and in HPI. Physical Exam Psychiatric: Orientation: alert, oriented x 3 and cooperative (and pleasant) Apperance: appropriately dressed, + disheveled and appeared stated age Obese-appearing female, seated in no acute distress. Pt is casually and appropriately dressed, wearing a button down shirt and bright pink pants. She is mildly disheveled, and hair is unkempt. Level of hygiene seems appropria te. Eye Contact: good eye contact Motor Behavior: steady gait and station and no abnormal motor movements Speech: normal rate/rhythm/volume of speech (rambling, not rapid or pressured) Affect: euthymic affect and + constricted affect Mood: no depressed mood ("I'm excited, the depression feels like it went away") and no anxious mood Thought Process: + tangential thought process, + flight of ideas, + looseness of associations and + perseveration (on her 5 babies ) Thought Content: + preoccupation and + delusions Suicidal Thoughts: denies suicidal thoughts Homicidal Thoughts: denies homicidal thoughts Hallucinations: no auditory hallucinations and no visual hallucin ations but did state "I had what they call auditory hallucinations at one point" - stating she could hear her [id number] talking about "cook the coffee." Admits this event was not recent. Does not appear to be responding to internal stimuli. Cognition: language grossly intact; + recent memory not intact and + attention not intact Insight: + severely impaired insight Judgement: + severely impaired judgement Vital Signs (Past 24 Hours): Last Vital Signs Temp 36.9 C 08/07/19 06:00 Pulse 76 08/07/19 06:00 Resp 18 08/07/19 06:00 BP 153/78 H 08/07/19 06:00 Pulse Ox 97 08/06/19 19:22 Exam Statement: A physical exam was performed in the ER prior to admission to the unit by []. I accept that physical as correct/medical clearance for the inpatient physical exam. Results & Data Laboratory Results Laboratory Results - last 24 hr 08/06/19 08/06/19 08/06/19 12:50 12:50 13:03 WBC 13.61 H RBC 4.88 Hgb 14.4 Hct 43.1 MCV 88.3 MCH 29.5 MCHC 33.4 RDW Std Deviation 46.5 H RDW Coeff of [place] 14.3 Plt Count 240 MPV 9.5 Immature Gran % (Auto) 0.2 Neut % (Auto) 77.8 Lymph % (Auto) 12.5 [place] % (Auto) 7.1 Eos % (Auto) 2.3 Baso % (Auto) 0.1 Immature Gran # (Auto) 0.03 H Neut # (Auto) 10.59 H Lymph # (Auto) 1.70 [place] # (Auto) 0.96 H Eos # (Auto) 0.31 Baso # (Auto) 0.02 Sodium Potassium Chloride Carbon Dioxide Anion Gap BUN Creatinine Est Cr Clr Drug Dosing Est GFR ( Amer) Est GFR (Non-Af Amer) BUN/Creatinine Ratio Glucose Calcium Total Bilirubin AST ALT Alkaline Phosphatase Total Protein Albumin Globulin Albumin/Globulin Ratio TSH Free T4 HCG, Qual Urine Color Dark Yellow Urine Appearance Clear Urine pH 5.0 Ur Specific [place] 1.028 Urine Protein Negative Urine Glucose (UA) Negative Urine Ketones Trace H Urine Blood Negative Urine Nitrite Negative Urine Bilirubin Negative Urine Urobilinogen Negative Ur Leukocyte Esterase Negative Nasal Screen MRSA (PCR) Salicylates Urine Opiates Screen Neg Ur Methadone, Qual Neg Acetaminophen Urine Barbiturates Neg Ur Phencyclidine (PCP) Neg U Amphetamin/Meth Scrn Neg MDMA (Ecstasy) Screen Neg U Benzodiazepines Scrn Neg Ur Cocaine Metabolite Neg U Marijuana (THC) Screen Neg Ethyl Alcohol mg/dL 08/06/19 08/06/19 08/06/19 13:03 13:03 13:03 WBC RBC Hgb Hct MCV MCH MCHC RDW Std Deviation RDW Coeff of [place] Plt Count MPV Immature Gran % (Auto) Neut % (Auto) Lymph % (Auto) [place] % (Auto) Eos % (Auto) Baso % (Auto) Immature Gran # (Auto) Neut # (Auto) Lymph # (Auto) [place] # (Auto) Eos # (Auto) Baso # (Auto) Sodium 140 Potassium 4.6 Chloride 107 Carbon Dioxide 31 Anion Gap 2.0 L BUN 20 H Creatinine 1.00 Est Cr Clr Drug Dosing 71.1 Est GFR ( Amer) 66.6 Est GFR (Non-Af Amer) 57.4 BUN/Creatinine Ratio 20.2 H Glucose 93 Calcium 8.9 Total Bilirubin 0.5 AST 17 ALT 25 Alkaline Phosphatase 123 H Total Protein 7.2 Albumin 3.3 L Globulin 3.9 Albumin/Globulin Ratio 0.8 L TSH 8.580 H Free T4 0.94 HCG, Qual Urine Color Urine Appearance Urine pH Ur Specific [place] Urine Protein Urine Glucose (UA) Urine Ketones Urine Blood Urine Nitrite Urine Bilirubin Urine Urobilinogen Ur Leukocyte Esterase Nasal Screen MRSA (PCR) Salicylates < 1.7 L Urine Opiates Screen Ur Methadone, Qual Acetaminophen < 2 L Urine Barbiturates Ur Phencyclidine (PCP) U Amphetamin/Meth Scrn MDMA (Ecstasy) Screen U Benzodiazepines Scrn Ur Cocaine Metabolite U Marijuana (THC) Screen Ethyl Alcohol mg/dL < 3.0 08/06/19 08/06/19 13:03 15:20 WBC RBC Hgb Hct MCV MCH MCHC RDW Std Deviation RDW Coeff of [place] Plt Count MPV Immature Gran % (Auto) Neut % (Auto) Lymph % (Auto) [place] % (Auto) Eos % (Auto) Baso % (Auto) Immature Gran # (Auto) Neut # (Auto) Lymph # (Auto) [place] # (Auto) Eos # (Auto) Baso # (Auto) Sodium Potassium Chloride Carbon Dioxide Anion Gap BUN Creatinine Est Cr Clr Drug Dosing Est GFR ( Amer) Est GFR (Non-Af Amer) BUN/Creatinine Ratio Glucose Calcium Total Bilirubin AST ALT Alkaline Phosphatase Total Protein Albumin Globulin Albumin/Globulin Ratio TSH Free T4 HCG, Qual Negative Urine Color Urine Appearance Urine pH Ur Specific [place] Urine Protein Urine Glucose (UA) Urine Ketones Urine Blood Urine Nitrite Urine Bilirubin Urine Urobilinogen Ur Leukocyte Esterase Nasal Screen MRSA (PCR) Negative Salicylates Urine Opiates Screen Ur Methadone, Qual Acetaminophen Urine Barbiturates Ur Phencyclidine (PCP) U Amphetamin/Meth Scrn MDMA (Ecstasy) Screen U Benzodiazepines Scrn Ur Cocaine Metabolite U Marijuana (THC) Screen Ethyl Alcohol mg/dL Current Inpatient Medications Current Inpatient Medications: Current Inpatient Medications Acetaminophen (Tylenol) 650 mg PO Q4H PRN PRN Reason: Headache or Minor Fever Stop: 09/05/19 17:57 Al Hydrox/Mg Hydrox/Simethicone (Maalox) 30 ml PO Q4H PRN PRN Reason: GI Upset Stop: 09/05/19 17:57 Aspirin (Ecotrin Ectab) 81 mg PO [facility] Stop: 09/06/19 08:59 Last Admin: 08/07/19 08:33 Dose: 81 mg Documented by: Atorvastatin Calcium (Lipitor) 40 mg PO [facility] Stop: 09/06/19 08:59 Last Admin: 08/07/19 08:33 Dose: 40 mg Documented by: Bismuth Subsalicylate (Kaopectate) 15 ml PO PRN PRN PRN Reason: Loose Stool Stop: 09/05/19 17:57 Calcium Carbonate (Os-Jae 500) 1,250 mg PO [facility] Stop: 09/06/19 08:59 Last Admin: 08/07/19 08:33 Dose: 1,250 mg Documented by: Hydroxyzine HCl (Vistaril) 50 mg PO HSZ PRN PRN Reason: Insomnia Stop: 09/05/19 17:57 Hydroxyzine HCl (Vistaril) 25 mg PO Q4H PRN PRN Reason: Anxiety Stop: 09/05/19 17:57 Lisinopril (Zestril) 40 mg PO [facility] Stop: 09/06/19 08:59 Last Admin: 08/07/19 08:33 Dose: 40 mg Documented by: Magnesium Hydroxide (Milk Of Magnesia) 30 ml PO DAILY PRN PRN Reason: Constipation Stop: 09/05/19 17:57 Multivitamins (Multivitamin Tab) 1 tab PO [facility] Stop: 09/06/19 08:59 Last Admin: 08/07/19 08:33 Dose: 1 tab Documented by: Nadolol (Corgard) 80 mg PO [facility] Stop: 09/06/19 08:59 Last Admin: 08/07/19 08:33 Dose: 80 mg Documented by: Polyethylene Glycol (Miralax Powder Packet) 17 gm PO DAILY PRN PRN Reason: Constipation Stop: 09/05/19 17:59 Prenat Multivit/Energy Control Officer/Iron/Folic Ac ( Vitamin) 1 tab PO [facility] Stop: 09/06/19 08:59 Last Admin: 08/07/19 08:33 Dose: 1 tab Documented by: Sodium Chloride ([place] Nasal) 1 - 2 sprays NA PRN PRN PRN Reason: Nasal Dryness/Congestion Stop: 09/05/19 17:57 Triamcinolone Acetonide (Kenalog 0.025%) 1 appln TOP BID PRN PRN Reason: SKIN IRRITATIONS Stop: 09/05/19 17:59
[2019-08-07] MEDS: ARIPiprazole 5 MG TAB PO SCH (14:49)
[2019-08-07] MEDS: TRIAMCINOLONE ACET 0.025% CR 15 GM TUBE TOP PRN (15:03)
[2019-08-08 07:59] LABS: Glucose Fasting 99 mg/dl (70-99)
[2019-08-08 08:07] LABS: Chol HDL Ratio 4; Cholesterol 154 mg/dl (0-200); HDL Cholesterol 43 mg/dl; LDL Cholesterol Calculated 87 mg/dl; Triglycerides 119 mg/dl (0-150); VLDL Cholesterol 24 mg/dl
[2019-08-08] MEDS: ARIPiprazole 5 MG TAB PO SCH (08:59)
[2019-08-08] MEDS: nadoloL 40 MG TAB PO SCH (08:59)
[2019-08-08] MEDS: ATORVASTATIN 40 MG TAB PO SCH (08:59)
[2019-08-08] MEDS: ASPIRIN 81 MG ECTAB PO SCH (08:59)
[2019-08-08] MEDS: lisinopriL 40 MG TAB PO SCH (09:00)
[2019-08-08] MEDS: MULTIVITAMIN TAB PO SCH (09:00)
[2019-08-08] MEDS: PRENATAL VITAMIN 1 TAB PO SCH (09:00)
[2019-08-08] MEDS: CALCIUM CARBONATE 1250MG TAB PO SCH (09:00)
[2019-08-08] MEDS ORDERED: ARIPiprazole 5 MG TAB PO ONE (13:02)
[2019-08-08] MEDS: TRIAMCINOLONE ACET 0.025% CR 15 GM TUBE TOP PRN (13:55)
[2019-08-09] MEDS: nadoloL 40 MG TAB PO SCH (08:48)
[2019-08-09] MEDS: ATORVASTATIN 40 MG TAB PO SCH (08:48)
[2019-08-09] MEDS: ARIPiprazole 10 MG TAB PO SCH (08:48)
[2019-08-09] MEDS: PRENATAL VITAMIN 1 TAB PO SCH (08:48)
[2019-08-09] MEDS: MULTIVITAMIN TAB PO SCH (08:48)
[2019-08-09] MEDS: ASPIRIN 81 MG ECTAB PO SCH (08:48)
[2019-08-09] MEDS: CALCIUM CARBONATE 1250MG TAB PO SCH (08:48)
[2019-08-09] MEDS: lisinopriL 40 MG TAB PO SCH (08:49)
[2019-08-09] MEDS ORDERED: guaiFENesin 600 MG TABCR PO PRN (09:31)
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
--- NOTE | 2019-08-09 11:31 | XRay Report ---
SINGLE VIEW CHEST CLINICAL HISTORY: Cough and wheezing. FINDINGS: An AP, portable, upright chest radiograph is compared to study dated 08/19/2017. The examina tion is degraded by portable technique, large body habitus, and patient rotation. The cardiomediasti nal silhouette is unremarkable. The lungs and pleural spaces are clear. No pneumothorax is seen. The bony thorax is grossly intact. IMPRESSION: No active disease in the chest. ACT 112: Negative or not required by law. Electronically signed by: Andrew Quinteros M.D. 08/09/2019 11:30 AM
[2019-08-09] MEDS: ALBUTEROL HFA 8 GM INHALER INH SCH ×3 (11:37→20:40)
[2019-08-09 12:45] LABS: Basophils # (auto) 0.03 K/uL (0-0.2); Basophils % (auto) 0.2 %; Eosinophils # (auto) 0.33 K/uL (0-0.5); Eosinophils % (auto) 2.4 %; Hematocrit (blood only) 45.7 % (37-47); Hemoglobin 15.7 g/dL (12.0-16.0); Immature Granulocytes # (auto) 0.02 K/uL (0.00-0.02); Immature Granulocytes % (auto) 0.1 %; Lymphocytes # (auto) 2.62 K/uL (1.2-3.4); Mean Corpuscular Hemoglobin 29.8 pg (25-34); Mean Corpuscular Hgb Conc 34.4 g/dL (32-36); Mean Corpuscular Volume 86.9 fL (80-100); Mean Platelet Volume 9.6 fL (7.4-10.4); Monocytes # (auto) 1.37 K/uL (0.11-0.59); Monocytes % (auto) 9.9 %; Neutrophils # (auto) 9.41 K/uL (1.4-6.5); Neutrophils % (auto) 68.4 %; Platelet Count 307 K/uL (130-400); RDW Coefficient of Variation 14.3 % (11.5-14.5); RDW Standard Deviation 45.1 fL (36.4-46.3); Red Blood Count 5.26 M/uL (4.2-5.4); White Blood Count 13.78 K/uL (4.8-10.8)
[2019-08-09 13:27] LABS: Thyroid Stimulating Hormone 10.5 uIu/ml (0.300-4.500)
[2019-08-09 13:47] LABS: T4 Free Thyroxine 1.04 ng/dl (0.8-1.6)
[2019-08-09 14:42] LABS: Appearance Urine Cloudy (Clear); Bacteria Urine Automated Negative (Negative); Bilirubin Urine Negative (Negative); Blood Urine Negative (Negative); Color Urine Dark Yellow; Epithelial Cell Urine Auto >30 /lpf (0-5); Glucose Urine UA Negative (Negative); Ketones Urine Negative (Negative); Leukocyte Esterase Urine Trace (Negative); Nitrite Urine Negative (Negative); Protein Urine Negative (Negative); Specific Gravity Urine 1.026 (1.000-1.030); Urobilinogen Urine Negative (Negative)
[2019-08-10] MEDS: ALBUTEROL HFA 8 GM INHALER INH SCH ×4 (08:47→21:38)
[2019-08-10] MEDS: ASPIRIN 81 MG ECTAB PO SCH (08:48)
[2019-08-10] MEDS: PRENATAL VITAMIN 1 TAB PO SCH (08:48)
[2019-08-10] MEDS: CALCIUM CARBONATE 1250MG TAB PO SCH (08:48)
[2019-08-10] MEDS: ATORVASTATIN 40 MG TAB PO SCH (08:48)
[2019-08-10] MEDS: MULTIVITAMIN TAB PO SCH (08:48)
[2019-08-10] MEDS: lisinopriL 40 MG TAB PO SCH (08:48)
[2019-08-10] MEDS: nadoloL 40 MG TAB PO SCH (08:48)
[2019-08-10] MEDS: ARIPiprazole 10 MG TAB PO SCH (08:48)
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
[2019-08-10] MEDS: TRIAMCINOLONE ACET 0.025% CR 15 GM TUBE TOP PRN (19:12)
[2019-08-10] MEDS: POLYETHYLENE (MIRALAX) 17 GM PACK PO PRN (21:58)
[2019-08-11] MEDS: ACETAMINOPHEN 325 MG TAB PO PRN (05:49)
[2019-08-11] MEDS: ALBUTEROL HFA 8 GM INHALER INH SCH ×4 (08:42→19:48)
[2019-08-11] MEDS: nadoloL 40 MG TAB PO SCH (08:45)
[2019-08-11] MEDS: MULTIVITAMIN TAB PO SCH (08:46)
[2019-08-11] MEDS: CALCIUM CARBONATE 1250MG TAB PO SCH (08:46)
[2019-08-11] MEDS: PRENATAL VITAMIN 1 TAB PO SCH (08:46)
[2019-08-11] MEDS: ATORVASTATIN 40 MG TAB PO SCH (08:46)
[2019-08-11] MEDS: ASPIRIN 81 MG ECTAB PO SCH (08:46)
[2019-08-11] MEDS: lisinopriL 40 MG TAB PO SCH (08:46)
[2019-08-11] MEDS: ARIPiprazole 15 MG TAB PO SCH (08:48)
--- NOTE | 2019-08-11 09:52 | Psychiatric Progress Note ---
Date of Service August 11, 2019 Impression / Recommendations Impression 69-year-old female admitted voluntarily for inpatient psychiatric treatment on 08/06/2019 after presenting to the ED for mental health evaluation. Patient verbalized the belief that she gave recently, her story varies from 1 baby 1.5 years ago to as many as 5 babies as recently as 06/19/2019. Family reported she was not caring for her needs. Given history of numerous psychiatric hospitalizations, delusional thought process, history of mood symptoms, and current flight of ideas and looseness of associations we will proceed with a working diagnosis of schizoaffective disorder, bipolar type. Ongoing titration of aripiprazole to target delusional thought content and disorganization of thought process. (1) Schizoaffective disorder, bipolar type: 08/07 - Admitted to a locked inpatient behavioral health unit, on q15 minute safety checks - Initiate aripiprazole 5mg qAM to target psychosis, with indication for depressive symptoms as well - risks, benefits, and potential side effects reviewed. Pt verbalized understanding and is agreeable - Will discontinue sertraline as patient reports nausea has prevented regular compliance; she has only been taking it every 4-5 days - Will require collateral information from and/or children regarding her psychiatric history - are recent admissions only list depression - Encourage participation in group and recreational therapies - Encourage family meeting to involve outpatient supports in safety planning - Arrange appropriate aftercare with referrals for a therapist and psychiatrist at discharge 08/08 --increase Abilify 7.5 mg today. Baseline AIMS appears to be 0. 2/2 --Abilify 10 mg daily (improving) 2/3 --Abilify 15 mg daily, hesitant to add lithium given TSH elevation (daughter reportedly did well on it in combo with Clozaril). 2 - Continue aripiprazole 15mg daily - consider need for further titration versus trial of an alternative agent as patient continues to be floridly psych otic with ongoing disorganization of thought and delusional thought content - Family meeting was attempted yesterday with patient's daughter and - patient was limited in her ability to tolerate the meeting - Continue to arrange aftercare (2) Delusion of : 08/07 - Patient's reports are inconsistent. She reports giving to 5 babies recently, but then also told ED staff that she believes she is currently - ruled out - urine HCG is negative; patient admits to tubal ligation in 08/09--patient still believes had multiple infants last year but clearly states not now. Believes children are alive and in [place] (3) History of MRSA infection: first swab negative on admission, MNPR pending 2nd swab day 5 if still hospitalized. 08/11 - Repeat MRSA swab obtained today, results are positive - Maintain MNPR at this time (4) Wheezing on auscultation: repeat CBC, CXR, Mucinex prn, ventolin inhaler q4 hr WA. (5) TSH elevation: will need repeat as outpatient within 6 weeks via primary care Risk Factors Assessment Male: No : Yes Mental Health Diagnoses: Yes Previous Psychiatric Hospitalization: Yes Protective Factors Assessment Anabaptism Beliefs: Yes : Yes Employed: No Stable Relationships: Yes Supportive Family: Yes Interval History Identifying Information MARIAMA TORRES is a 69-year-old F who currently lives in [place] with her . Pt only reports a history of depression though is familiar with the term "schizophrenia". She was admitted on 08/06/19 17:58 on a 201 voluntary commitment for delusions and reported inability to care for self according to . Chief Complaint "I had this stabbing pain in my head this morning." Review of Systems Notes Constitutional: reports "stabbing" headache this morning, now resolved Cardiovascular: denied Respiratory: denied Gastrointestinal: denied Neurological: denied Psychiatric: denies symptoms other than stated above Total of at least 10 systems reviewed, pertinent positives as above and in HPI. Sleep Information Total Hours of Sleep: 4.25 Sleep Comments: pt coughing during the night. pt on q-15 minute checks Meal Information Percent Meal Consumed - Breakfast: 100 Percent Meal Consumed - Lunch: 85 Percent Meal Consumed - Dinner: 100 Subjective Subjective Patient was seen & assessed and interval progress reviewed with nursing and social work. Staff report the patient has been attending group programming, but remains largely preoccupied with ongoing delusions about babies. It is reported that patient has begun to incorporate staff into her delusional beliefs, actually threatening some staff members of stealing her babies. There was an attempt yesterday to complete a family meeting with patient's and daughter. It is reported that patient's ability to tolerate that meeting was rather limited. Patient was seen today to assess progress since admission. She does inform this provider that she was experiencing a "stabbing pain" in her head this morning. Patient believes that this head pain is related to her aripiprazole, and states she was actually requesting that the nurses give her her dose early in order to relieve the headache. Patient was reminded of the purpose of the aripiprazole, and that while headache is a common side effect it is not actively being used to treat headaches. 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 Dr. Albrecht told me because of that she would give me male doses of Abilify." Patient was informed that this was news to this provider, and the reliability of this information remains uncertain. Patient remains preoccupied with her babies, actually informing this provider that she has been receiving calls from a facility in [place] to provide updates on the babies. She remains unable to participate in any reality testing at this time. Patient continues to demonstrate difficulty organizing her thoughts, as conversation jumps from her providing unsolicited medical advice to patient commenting that her headache may be related to "my teeth". Patient has difficulty sustaining specific conversation topics, but is able to inform this provider that she believes the aripiprazole has been helpful for her. Patient randomly mentions numerous times "I started believing in you" or "I finally believe in my doctors." Patient states that she is aware that aripiprazole is available in a monthly injection, and wishes to pursue this. This provider encouraged patient to be patient, as this option can be pursued once we are sure the medication is effective. Patient denies suicidal and homicidal ideation. She denies other needs or concerns from staff at this time. Physical Exam Psychiatric Orientation: alert and cooperative (And pleasant) Apperance: appropriately dressed, appropriately groomed and appeared stated age Eye Contact: good eye contact Motor Behavior: steady gait and station and no abnormal motor movements Speech: normal rate/rhythm/volume of speech Affect: euthymic affect (Bright, interactive) Mood: no depressed mood and no anxious mood "I am feeling very good" Thought Process: + tangential thought process and + looseness of associations Thought Content: + preoccupation and + delusions Suicidal Thoughts: denies suicidal thoughts Homicidal Thoughts: denies homicidal thoughts Hallucinations: no auditory hallucinations and no visual hallucinations Cognition: language grossly intact; + attention not intact Insight: + impaired insight Judgement: + impaired judgement Vital Signs (Past 24 Hours) Last Vital Signs Temp 36.4 C L 08/11/19 07:09 Pulse 80 08/11/19 07:09 Resp 18 08/11/19 07:09 BP 170/88 H 08/11/19 07:09 Pulse Ox 97 08/09/19 11:34 Results & Data Laboratory Results Laboratory Results - last 24 hr 08/11/19 09:09 Nasal Screen MRSA (PCR) Pending Current Inpatient Medications Current Inpatient Medications: Current Inpatient Medications Acetaminophen (Tylenol) 650 mg PO Q4H PRN PRN Reason: Headache or Minor Fever Stop: 09/05/19 17:57 Last Admin: 08/11/19 05:49 Dose: 650 mg Documented by: Al Hydrox/Mg Hydrox/Simethicone (Maalox) 30 ml PO Q4H PRN PRN Reason: GI Upset Stop: 09/05/19 17:57 Albuterol ([facility] Hfa) [facility] Stop: 09/08/19 11:59 Last Admin: 08/11/19 08:42 Dose: 2 puffs Documented by: Aripiprazole (Abilify) 15 mg PO [facility] Stop: 09/10/19 08:59 Last Admin: 08/11/19 08:48 Dose: 15 mg Documented by: Aspirin (Ecotrin Ectab) 81 mg PO [facility] Stop: 09/06/19 08:59 Last Admin: 08/11/19 08:46 Dose: 81 mg Documented by: Atorvastatin Calcium (Lipitor) 40 mg PO [facility] Stop: 09/06/19 08:59 Last Admin: 08/11/19 08:46 Dose: 40 mg Documented by: Bismuth Subsalicylate (Kaopectate) 15 ml PO PRN PRN PRN Reason: Loose Stool Stop: 09/05/19 17:57 Calcium Carbonate (Os-Jae 500) 1,250 mg PO [facility] Stop: 09/06/19 08:59 Last Admin: 08/11/19 08:46 Dose: 1,250 mg Documented by: Guaifenesin (Mucinex) 600 mg PO Q12 PRN PRN Reason: Cough Stop: 09/08/19 20:59 Last Admin: 08/09/19 10:22 Dose: 600 mg Documented by: Hydroxyzine HCl (Vistaril) 50 mg PO HSZ PRN PRN Reason: Insomnia Stop: 09/05/19 17:57 Hydroxyzine HCl (Vistaril) 25 mg PO Q4H PRN PRN Reason: Anxiety Stop: 09/05/19 17:57 Lisinopril (Zestril) [facility] [place]: 09/06/19 08:59 Last Admin: 08/11/19 08:46 Dose: 40 mg Documented by: Magnesium Hydroxide (Milk Of Magnesia) 30 ml PO DAILY PRN PRN Reason: Constipation Stop: 09/05/19 17:57 Multivitamins (Multivitamin Tab) 1 tab PO [facility] Stop: 09/06/19 08:59 Last Admin: 08/11/19 08:46 Dose: 1 tab Documented by: Nadolol (Corgard) 80 mg PO [facility] Stop: 09/06/19 08:59 Last Admin: 08/11/19 08:45 Dose: 80 mg Documented by: Polyethylene Glycol (Miralax Powder Packet) 17 gm PO DAILY PRN PRN Reason: Constipation Stop: 09/05/19 17:59 Last Admin: 08/10/19 21:58 Dose: 17 gm Documented by: Prenat Multivit/[place]/Iron/Folic Ac ( Vitamin) 1 tab [facility] [place] Stop: 09/06/19 08:59 Last Admin: 08/11/19 08:46 Dose: 1 tab Documented by: Sodium Chloride ([place] Nasal) 1 - 2 sprays NA PRN PRN PRN Reason: Nasal Dryness/Congestion Stop: 09/05/19 17:57 Triamcinolone Acetonide (Kenalog 0.025%) 1 appln TOP BID PRN PRN Reason: SKIN IRRITATIONS Stop: 09/05/19 17:59 Last Admin: 08/10/19 19:12 Dose: 1 appln Documented by: Mental Health & Subst Abuse Tx Psychiatrist Name of Psychiatrist: Ranjana Price PA-C Psychiatrist's Date of Appointment with Psychiatrist: 08/14/19 Time of Appointment with Psychiatrist: 2:30pm Psychiatric Appointment Comment: [address] [place] [address] Therapist Name of Therapist: Denies Preschool Program Director Name of Preschool Program Director: [facility] (referral completed) Phone Number for Preschool Program Director: [phone] Post Discharge Appointments Primary Care Physician Name Of Family Doctor: Dr. Quintero Primary Care Provider Appointment Comment: As needed Contact Information Discharge Discharge Address: [address] [place] [address]
[2019-08-11] MEDS: TRIAMCINOLONE ACET 0.025% CR 15 GM TUBE TOP PRN (19:46)
[2019-08-12] MEDS: ACETAMINOPHEN 325 MG TAB PO PRN (01:06)
[2019-08-12] MEDS: ARIPiprazole 15 MG TAB PO SCH (07:47)
[2019-08-12] MEDS: ALBUTEROL HFA 8 GM INHALER INH SCH ×4 (07:47→21:10)
[2019-08-12] MEDS: nadoloL 40 MG TAB PO SCH (07:47)
[2019-08-12] MEDS: PRENATAL VITAMIN 1 TAB PO SCH (07:48)
[2019-08-12] MEDS: CALCIUM CARBONATE 1250MG TAB PO SCH (07:48)
[2019-08-12] MEDS: ASPIRIN 81 MG ECTAB PO SCH (07:48)
[2019-08-12] MEDS: ATORVASTATIN 40 MG TAB PO SCH (07:48)
[2019-08-12] MEDS: MULTIVITAMIN TAB PO SCH (07:48)
[2019-08-12] MEDS: lisinopriL 40 MG TAB PO SCH (07:49)
--- NOTE | 2019-08-12 09:52 | Psychiatric Progress Note ---
Date of Service August 12, 2019 Impression / Recommendations Impression 69-year-old female admitted voluntarily for inpatient psychiatric treatment on 08/06/2019 after presenting to the ED for mental health evaluation. Patient verbalized the belief that she gave recently, her story varies from 1 baby 1.5 years ago to as many as 5 babies as recently as 06/19/2019. Family reported she was not caring for her needs. Given history of numerous psychiatric hospitalizations, delusional thought process, history of mood symptoms, and current flight of ideas and looseness of associations we will proceed with a working diagnosis of schizoaffective disorder, bipolar type. Ongoing titration of aripiprazole to target delusional thought content and disorganization of thought process. She has been highly preoccupied with the actions of staff and other patients. Pt was becoming fixated on another patient's children, believing they were her own - we are therefore adding age restrictions to visitors to prevent further issues. Inpatient psychiatric treatment remains the most appropriate and least restrictive setting at this time, as patient remains delusional and is demonstrating inability to tolerate community re-entry. (1) Schizoaffective disorder, bipolar type: 08/07 - Admitted to a locked inpatient behavioral health unit, on q15 minute safety checks - Initiate aripiprazole 5mg qAM to target psychosis, with indication for d epressive symptoms as well - risks, benefits, and potential side effects reviewed. Pt verbalized understanding and is agreeable - Will discontinue sertraline as patient reports nausea has prevented regular compliance; she has only been taking it every 4-5 days - Will require collateral information from and/or children regarding her psychiatric history - are recent admissions only list depression - Encourage participation in group and recreational therapies - Encourage family meeting to involve outpatient supports in safety planning - Arrange appropriate aftercare with referrals for a therapist and psychiatrist at discharge 2 --increase Abilify 7.5 mg today. Baseline AIMS appears to be 0. 2/2 --Abilify 10 mg daily (improving) 2/3 --Abilify 15 mg daily, hesitant to add lithium given TSH elevation (daughter reportedly did well on it in combo with Clozaril). 2/4 - Continue aripiprazole 15mg daily - consider need for further titration versus trial of an alternative agent as patient continues to be floridly psychotic with ongoing disorganization of thought and delusional thought content - Family meeting was attempted yesterday with patient's daughter and - patient was limited in her ability to tolerate the meeting - Continue to arrange aftercare 08/12 - Titrate aripiprazole to 20mg daily starting tomorrow morning - patient remains delusional with inability to participate in reality testing - Pt more focused on various physical complaints (headache, dizziness, parasites) - continue to monitor, brief neuro assessment completed without any gross abnormalities - Will need to schedule a repeat family meeting once patient is better able to tolerate - Coordinate care with outpatient providers - Fasting labs obtained on 08/08/2019 - fasting glucose and lipid panel with all values WNL (2) Delusion of : 08/07 - Patient's reports are inconsistent. She reports giving to 5 babies recently, but then also told ED staff that she believes she is currently - ruled out - urine HCG is negative; patient admits to tubal ligation in 08/09--patient still believes had multiple infants last year but clearly states not now. Believes children are alive and in [place] (3) History of MRSA infection: first swab negative on admission, MNPR pending 2nd swab day 5 if still hospitalized. 08/11 - Repeat MRSA swab obtained today, results are positive - Maintain MNPR at this time (4) Wheezing on auscultation: repeat CBC, CXR, Mucinex prn, ventolin inhaler q4 hr WA. (5) TSH elevation: will need repeat as outpatient within 6 weeks via primary care Risk Factors Assessment Male: No : Yes Mental Health Diagnoses: Yes Previous Psychiatric Hospitalization: Yes Protective Factors Assessment [employer] Beliefs: Yes : Yes Employed: No Stable Relationships: Yes Supportive Family: Yes Interval History Identifying Information MARIAMA TORRES is a 69-year-old F who currently lives in [place] with her . Pt only reports a history of depression though is familiar with the term "schizophrenia". She was admitted on 08/06/19 17:58 on a 201 voluntary commitment for delusions and reported inability to care for self according to . Chief Complaint "I was feeling very dizzy this morning." Review of Systems Notes Constitutional: reporting numerous physical complaints today - headache, dizziness Cardiovascular: denied Respiratory: denied Gastrointestinal: "I pulled a parasite from my rectum yesterday" Neurological: "I can't think of my words" Psychiatric: denies symptoms other than stated above Total of at least 10 systems reviewed, pertinent positives as above and in HPI. Sleep Information Total Hours of Sleep: 4.75 Sleep Comments: pt on q-15 minute checks Meal Information Percent Meal Consumed - Breakfast: 100 Percent Meal Consumed - Lunch: 75 Percent Meal Consumed - Dinner: 100 Subjective Subjective Patient was seen & assessed and interval progress reviewed with treatment team. Staff report the patient continues to demonstrate delusional thought process, and is difficult to redirect during group activities. She reportedly became fixated on the child of another patient, believing it was her own. Treatment team has decided to restrict ages of visitors to prevent further issues and concerns. Patient is scheduled to meet for case management intake this afternoon. Patient was seen today to assess progress since admission. She provides verbal consent to allow Cynthia Gonzalez PA-C to observe today's encounter. Patient states that she was feeling rather dizzy this morning, and admits to another headache early this morning. Patient states she is concerned that she is having "a bleed", reporting concern for a stroke. Patient participated in brief neuro with no gross deficits to suggest this is the case. She also informs this provider that she pulled "skin out of my rectum, I think it was a parasite." Patient continues to give vague and incomplete histories as to why she believes these medical concerns are happening. She does admit that "I cannot think of my words", and does believe that she is feeling confused. Patient states "I know the direction I want to go in, but I cannot pull up the words." Patient states that she was somewhat upset as staff has continued to say that she is having "delusions." Patient states "I do not think I am having delusions, I am just having trouble coming up with my words." This provider attempted reality testing with the patient, as the patient was informed that staff and her family are concerned that her mind may be trying to trick her. This provider offered specific concerns about her believes that she has young babies, and patient was unable to provide any new justification for this belief. Patient remains unable to reality test, stating that she does have babies and that all staff needs to do is call the facility they are at to be provided with an update on their condition. Patient actually becomes rather irritable when stating that she is upset that staff has not yet called for the update like she has requested. This provider attempted to gently reassure the patient that the phone call has not been made as it is not clear that there are truly babies at this facility. As patient is unable to process these thoughts being challenged, she states "we will may be they are not at that facility, at one point they said they were maybe going to move them to somewhere else." Patient continues to den y suicidal and homicidal ideation. She was agreeable with continuing to titrate her dose of aripiprazole, with this provider informing her of concern for ongoing confusion and disorganized thoughts. She denies other needs or concerns at this time. Physical Exam Psychiatric Orientation: alert and cooperative Apperance: appropriately dressed, appropriately groomed and appeared stated age Eye Contact: good eye contact Motor Behavior: steady gait and station and no abnormal motor movements Speech: normal rate/rhythm/volume of speech Affect: euthymic affect and + constricted affect Mood: no depressed mood and no anxious mood Denies concerns related to mood. Thought Process: + tangential thought process, + looseness of associations and + perseveration; + thought process not linear or logical and + thought process not clear or coherent Thought Content: + preoccupation (with various physical complaints; status of her "babies"), + paranoid (believes staff is mistreating her and other patients) and + delusions Suicidal Thoughts: denies suicidal thoughts Homicidal Thoughts: denies homicidal thoughts Hallucinations: no auditory hallucinations and no visual hallucinations Cognition: language grossly intact; + attention not intact Insight: + severely impaired insight Judgement: + impaired judgement Vital Signs (Past 24 Hours) Last Vital Signs Temp 36.4 C L 08/12/19 07:03 Pulse 67 08/12/19 07:03 Resp 18 08/12/19 07:03 BP 145/85 H 08/12/19 07:03 Pulse Ox 97 08/09/19 11:34 Results & Data Laboratory Results Laboratory Results - last 24 hr 08/11/19 09:09 Nasal Screen MRSA (PCR) Positive A Current Inpatient Medications Current Inpatient Medications: Current Inpatient Medications Acetaminophen (Tylenol) 650 mg PO Q4H PRN PRN Reason: Headache or Minor Fever Stop: 09/05/19 17:57 Last Admin: 08/12/19 01:06 Dose: 650 mg Documented by: Al Hydrox/Mg Hydrox/Simethicone (Maalox) 30 ml PO Q4H PRN PRN Reason: GI Upset Stop: 09/05/19 17:57 Albuterol (Ventolin Hfa) [facility] Stop: 09/08/19 11:59 Last Admin: 08/12/19 07:47 Dose: 2 puffs Documented by: Aripiprazole (Abilify) 15 mg PO [facility] Stop: 09/10/19 08:59 Last Admin: 08/12/19 07:47 Dose: 15 mg Documented by: Aspirin (Ecotrin Ectab) 81 mg PO [facility] Stop: 09/06/19 08:59 Last Admin: 08/12/19 07:48 Dose: 81 mg Documented by: Atorvastatin Calcium (Lipitor) 40 mg PO [facility] Stop: 09/06/19 08:59 Last Admin: 08/12/19 07:48 Dose: 40 mg Documented by: Bismuth Subsalicylate (Kaopectate) 15 ml PO PRN PRN PRN Reason: Loose Stool Stop: 09/05/19 17:57 Calcium Carbonate (Os-Jae 500) 1,250 mg PO [facility] Stop: 09/06/19 08:59 Last Admin: 08/12/19 07:48 Dose: 1,250 mg Documented by: Guaifenesin (Mucinex) 600 mg PO Q12 PRN PRN Reason: Cough Stop: 09/08/19 20:59 Last Admin: 08/09/19 10:22 Dose: 600 mg Documented by: Hydroxyzine HCl (Vistaril) 50 mg PO HSZ PRN PRN Reason: Insomnia Stop: 09/05/19 17:57 Hydroxyzine HCl (Vistaril) 25 mg PO Q4H PRN PRN Reason: Anxiety Stop: 09/05/19 17:57 Lisinopril (Zestril) 40 mg PO [facility] Stop: 09/06/19 08:59 Last Admin: 08/12/19 07:49 Dose: 40 mg Documented by: Magnesium Hydroxide (Milk Of Magnesia) 30 ml PO DAILY PRN PRN Reason: Constipation Stop: 09/05/19 17:57 Multivitamins (Multivitamin Tab) 1 tab PO [facility] Stop: 09/06/19 08:59 Last Admin: 08/12/19 07:48 Dose: 1 tab Documented by: Nadolol (Corgard) 80 mg PO QAM GARY Stop: 09/06/19 08:59 Last Admin: 08/12/19 07:47 Dose: 80 mg Documented by: Polyethylene Glycol (Miralax Powder Packet) 17 gm PO DAILY PRN PRN Reason: Constipation Stop: 09/05/19 17:59 Last Admin: 08/10/19 21:58 Dose: 17 gm Documented by: Prenat Multivit/[place]/Iron/Folic Ac ( Vitamin) 1 tab PO QAM GARY Stop: 09/06/19 08:59 Last Admin: 08/12/19 07:48 Dose: 1 tab Documented by: Sodium Chloride ([place] Nasal) 1 - 2 sprays NA PRN PRN PRN Reason: Nasal Dryness/Congestion Stop: 09/05/19 17:57 Triamcinolone Acetonide (Kenalog 0.025%) 1 appln TOP BID PRN PRN Reason: SKIN IRRITATIONS Stop: 09/05/19 17:59 Last Admin: 08/11/19 19:46 Dose: 1 appln Documented by: Mental Health & Subst Abuse Tx Psychiatrist Name of Psychiatrist: Ranjana Price PA-C Psychiatrist's Date of Appointment with Psychiatrist: 08/14/19 Time of Appointment with Psychiatrist: 2:30pm Psychiatric Appointment Comment: [facility] [place] [address] Therapist Name of Therapist: Jenaro Drill Foreman Name of Drill Foreman: [facility] (referral completed) Phone Number for Drill Foreman: [phone] Post Discharge Appointments Primary Care Physician Name Of Family Doctor: Dr. Quintero Primary Care Provider Appointment Comment: As needed Contact Information Discharge Discharge Address: [address] [place] [address], [place] [address]
[2019-08-13] MEDS: TRIAMCINOLONE ACET 0.025% CR 15 GM TUBE TOP PRN (07:43)
[2019-08-13] MEDS: ALBUTEROL HFA 8 GM INHALER INH SCH ×4 (07:46→20:19)
[2019-08-13] MEDS: nadoloL 40 MG TAB PO SCH (08:00)
[2019-08-13] MEDS: ASPIRIN 81 MG ECTAB PO SCH (08:00)
[2019-08-13] MEDS: PRENATAL VITAMIN 1 TAB PO SCH (08:01)
[2019-08-13] MEDS: MULTIVITAMIN TAB PO SCH (08:01)
[2019-08-13] MEDS: CALCIUM CARBONATE 1250MG TAB PO SCH (08:01)
[2019-08-13] MEDS: lisinopriL 40 MG TAB PO SCH (08:01)
[2019-08-13] MEDS: ATORVASTATIN 40 MG TAB PO SCH (08:01)
[2019-08-13] MEDS: POLYETHYLENE (MIRALAX) 17 GM PACK PO PRN (08:07)
[2019-08-13] MEDS ORDERED: ARIPiprazole 10 MG TAB PO SCH (09:00)
[2019-08-13] MEDS ORDERED: PALIPERIDONE 3 MG TABCR PO SCH (09:45)
--- NOTE | 2019-08-13 10:00 | Psychiatric Progress Note ---
Date of Service August 13, 2019 Impression / Recommendations Impression 69-year-old female admitted voluntarily for inpatient psychiatric treatment on 08/06/2019 after presenting to the ED for mental health evaluation. Patient verbalized the belief that she gave recently, her story varies from 1 baby 1.5 years ago to as many as 5 babies as recently as 06/19/2019. Family reported she was not caring for her needs. Given history of numerous psychiatric hospitalizations, delusional thought process, history of mood symptoms, and current flight of ideas and looseness of associations we will proceed with a working diagnosis of schizoaffective disorder, bipolar type. Switching from aripiprazole to paliperidone to target delusional thought content and disorganization of thought process. She has been highly preoccupied with the actions of staff and other patients, as well as various medical delusions (pulling teeth from her head, believing she has passed a tapeworm). Pt was becoming fixated on another patient's children, believing they were her own - we are therefore adding age restrictions to visitors to prevent further issues. Inpatient psychiatric treatment remains the most appropriate and least restrictive setting at this time, as patient remains delusional and is demonstrating inability to tolerate community re-entry. (1) Schizoaffective disorder, bipolar type: 08/07 - Admitted to a locked inpatient behavioral health unit, on q15 minute safety checks - Initiate aripiprazole 5mg qAM to target psychosis, with indication for depressive symptoms as well - risks, benefits, and potential side effects reviewed. Pt verbalized understanding and is agreeable - Will discontinue sertraline as patient reports nausea has prevented regular compliance; she has only been taking it every 4-5 days - Will require collateral information from and/or children regarding her psychiatric history - are recent admissions only list depression - Encourage participation in group and recreational therapies - Encourage family meeting to involve outpatient supports in safety planning - Arrange appropriate aftercare with referrals for a therapist and psychiatrist at discharge 2 --increase Abilify 7.5 mg today. Baseline AIMS appears to be 0. 2/2 --Abilify 10 mg daily (improving) 2/3 --Abilify 15 mg daily, hesitant to add lithium given TSH elevation (daughter reportedly did well on it in combo with Clozaril). 2/4 - Continue aripiprazole 15mg daily - consider need for further titration versus trial of an alternative agent as patient continues to be floridly psychotic with ongoing disorganization of thought and delusional thought content - Family meeting was attempted yesterday with patient's daughter and - patient was limited in her ability to tolerate the meeting - Continue to arrange aftercare 08/12 - Titrate aripiprazole to 20mg daily starting tomorrow morning - patient remains delusional with inability to participate in reality testing - Pt more focused on various physical complaints (headache, dizziness, parasites) - continue to monitor, brief neuro assessment completed without any gross abnormalities - Will need to schedule a repeat family meeting once patient is better able to tolerate - Coordinate care with outpatient providers - Fasting labs obtained on 08/08/2019 - fasting glucose and lipid panel with all values WNL 08/13 - Cross-taper from aripiprazole to paliperidone, as patient is not demonstrating significant improvement with aripiprazole trial - Pt remains preoccupied with numerous physical complaints - now believing she pulled teeth from her head and that she has a tapeworm - Continue to coordinate care with family; will require repeat family meeting once able to tolerate the interaction (2) Delusion of : 08/07 - Patient's reports are inconsistent. She reports giving to 5 babies recently, but then also told ED staff that she believes she is currently - ruled out - urine HCG is negative; patient admits to tubal ligation in 08/09--patient still believes had multiple infants last year but clearly states not now. Believes children are alive and in [place] (3) History of MRSA infection: first swab negative on admission, MNPR pending 2nd swab day 5 if still hospitalized. 08/11 - Repeat MRSA swab obtained today, results are positive - Maintain MNPR at this time (4) Wheezing on auscultation: repeat CBC, CXR, Mucinex prn, ventolin inhaler q4 hr WA. (5) TSH elevation: will need repeat as outpatient within 6 weeks via primary care Risk Factors Assessment Male: No : Yes Mental Health Diagnoses: Yes Previous Psychiatric Hospitalization: Yes Protective Factors Assessment Protestant Beliefs: Yes : Yes Employed: No Stable Relationships: Yes Supportive Family: Yes Interval History Identifying Information MARIAMA TORRES is a 69-year-old F who currently lives in [place] with her . Pt only reports a history of depression though is familiar with the term "schizophrenia". She was admitted on 08/06/19 17:58 on a 201 voluntary commitment for delusions and reported inability to care for self according to . Chief Complaint "You know what happened? They think I had a tapeworm last night. I could see the teeth." Review of Systems Notes Constitutional: reports resolution of headache after "pulling the teeth out of my head"; reports intermittent dizziness Cardiovascular: denied Respiratory: denied Gastrointestinal: denied Neurological: admits to difficulty with concentration and perceived confusion at times Psychiatric: denies symptoms other than stated above Total of at least 10 systems reviewed, pertinent positives as above and in HPI. Sleep Information Total Hours of Sleep: 4.75 Sleep Comments: pt on q-15 minute checks Meal Information Percent Meal Consumed - Breakfast: 100 Percent Meal Consumed - Lunch: 75 Percent Meal Consumed - Dinner: 100 Subjective Subjective Patient was seen & assessed and interval progress reviewed with nursing and social work. Staff reports the patient continues to demonstrate disorganized and delusional thinking. She had reportedly informed staff that she believes she passed a tapeworm, and that she has been pulling teeth out of her head. Plan for adjustments to medication regimen were discussed during morning report. Patient was seen today to assess progress since admission. She provides verbal consent to allow Cynthia Gonzalez PA-C to observe today's encounter. Patient begins the conversation by informing this provider "they think I had a tapeworm. I could see the teeth." Patient continues to tell stories using beg pronouns, and is unable to provide information about who specifically is giving her this info rmation. Patient states that she plans to do a 6-day colon cleanse with MiraLAX, again stating "they told me I should be doing that at least once a year." Colon cleanse was discouraged at this time as patient is denying any gastrointestinal concerns. Patient does admit to a headache this morning, but states she "scratch my head the hardest I have ever scratched it and pulled these hard teeth out." Patient states that with this action, her headache resolved. Patient was asked to make sense of the situation for this provider, as it is highly unlikely that this would actually occur. Patient states only "I have seen x-rays of my teeth, there of these prongs that go up pretty far into my head. I think they said that is what might have happened." Patient continues delusional conversation by stating that she is owed $300,000 by her PCP for stealing money from a lottery ticket, and that she has been informed by staff that she is going home tomorrow. This provider politely challenged p atient on these thoughts, informing her that all staff is aware of her treatment plan, and that no one would have informed her of her anticipated discharge. Patient remains unable to reality test when challenged on the statements. Patient does believe that her confusion has been improving somewhat, but is agreeable with switching medications to a more potent antipsychotic agent. She was agreeable with trial of paliperidone at this time. Patient denies suicidal and homicidal ideation. She denies other needs or concerns presently. Physical Exam Psychiatric Orientation: alert and cooperative Apperance: appropriately dressed and + disheveled; + inappropriately groomed (Appearing unkempt, malodorous) Eye Contact: good eye contact Motor Behavior: steady gait and station and no abnormal motor movements Speech: normal rate/rhythm/volume of speech Affect: euthymic affect and + constricted affect Mood: no depressed mood Thought Process: + tangential thought process and + looseness of associations; + thought process not linear or logical Thought Content: + preoccupation (with various medical/physical delusions) and + delusions Suicidal Thoughts: denies suicidal thoughts Homicidal Thoughts: denies homicidal thoughts Hallucinations: no auditory hallucinations and no visual hallucinations Continues to use vague pronouns regarding information she states she is being provided, but denies hearing voices. Does not appear to be responding to internal stimuli during conversation. Cognition: language grossly intact; + attention not intact Insight: + impaired insight Judgement: + impaired judgement Vital Signs (Past 24 Hours) Last Vital Signs Temp 36.9 C 08/13/19 06:51 Pulse 71 08/13/19 08:05 Resp 20 08/13/19 06:51 BP 135/85 08/13/19 08:05 Pulse Ox 97 08/09/19 11:34 Results & Data Current Inpatient Medications Current Inpatient Medications: Current Inpatient Medications Acetaminophen (Tylenol) 650 mg PO Q4H PRN PRN Reason: Headache or Minor Fever Stop: 09/05/19 17:57 Last Admin: 08/12/19 01:06 Dose: 650 mg Documented by: Al Hydrox/Mg Hydrox/Simethicone (Maalox) 30 ml PO Q4H PRN PRN Reason: GI Upset Stop: 09/05/19 17:57 Albuterol (Ventolin Hfa) [id number] Stop: 09/08/19 11:59 Last Admin: 08/13/19 07:46 Dose: 2 puffs Documented by: Aripiprazole (Abilify) 10 mg PO [facility] Stop: 09/13/19 08:59 Aspirin (Ecotrin Ectab) 81 mg PO [facility] Stop: 09/06/19 08:59 Last Admin: 08/13/19 08:00 Dose: 81 mg Documented by: Atorvastatin Calcium (Lipitor) 40 mg PO [facility] Stop: 09/06/19 08:59 Last Admin: 08/13/19 08:01 Dose: 40 mg Documented by: Bismuth Subsalicylate (Kaopectate) 15 ml PO PRN PRN PRN Reason: Loose Stool Stop: 09/05/19 17:57 Calcium Carbonate (Os-Jae 500) 1,250 mg PO [facility] Stop: 09/06/19 08:59 Last Admin: 08/13/19 08:01 Dose: 1,250 mg Documented by: Guaifenesin (Mucinex) 600 mg PO Q12 PRN PRN Reason: Cough Stop: 09/08/19 20:59 Last Admin: 08/09/19 10:22 Dose: 600 mg Documented by: Hydroxyzine HCl (Vistaril) 50 mg PO HSZ PRN PRN Reason: Insomnia Stop: 09/05/19 17:57 Hydroxyzine HCl (Vistaril) 25 mg PO Q4H PRN PRN Reason: Anxiety Stop: 09/05/19 17:57 Lisinopril (Zestril) 40 mg PO [facility] Stop: 09/06/19 08:59 Last Admin: 08/13/19 08:01 Dose: 40 mg Documented by: Magnesium Hydroxide (Milk Of Magnesia) 30 ml PO DAILY PRN PRN Reason: Constipation Stop: 09/05/19 17:57 Multivitamins (Multivitamin Tab) 1 tab PO [facility] Stop: 09/06/19 08:59 Last Admin: 08/13/19 08:01 Dose: 1 tab Documented by: Nadolol (Corgard) 80 mg PO [facility] Stop: 09/06/19 08:59 Last Admin: 08/13/19 08:00 Dose: 80 mg Documented by: Paliperidone (Invega) 3 mg PO QAM [facility] Stop: 09/12/19 09:44 Polyethylene Glycol (Miralax Powder Packet) 17 gm PO DAILY PRN PRN Reason: Constipation Stop: 09/05/19 17:59 Last Admin: 08/13/19 08:07 Dose: 17 gm Documented by: Franca Multivit/Luce/Iron/Folic Ac ( Vitamin) 1 tab PO QAM [facility] Stop: 09/06/19 08:59 Last Admin: 08/13/19 08:01 Dose: 1 tab Documented by: Sodium Chloride ([place] Nasal) 1 - 2 sprays NA PRN PRN PRN Reason: Nasal Dryness/Congestion Stop: 09/05/19 17:57 Triamcinolone Acetonide (Kenalog 0.025%) 1 appln TOP BID PRN PRN Reason: SKIN IRRITATIONS Stop: 09/05/19 17:59 Last Admin: 08/13/19 07:43 Dose: 1 appln Documented by: Mental Health & Subst Abuse Tx Psychiatrist Name of Psychiatrist: Ranjana Price PA-C Psychiatrist's Date of Appointment with Psychiatrist: 08/14/19 Time of Appointment with Psychiatrist: 2:30pm Psychiatric Appointment Comment: [facility] [place] [place] [place] [address] Therapist Name of Therapist: Jenaro Wire Tinner Name of Wire Tinner: [facility] (referral completed) Phone Number for Wire Tinner: [phone] Post Discharge Appointments Primary Care Physician Name Of Family Doctor: Dr. Quintero Primary Care Provider Appointment Comment: As needed Contact Information Discharge Discharge Address: [address] [place] [address], [place] [address]
[2019-08-14] MEDS ORDERED: ARIPiprazole 10 MG TAB PO SCH (09:00)
[2019-08-14] MEDS ORDERED: PALIPERIDONE 3 MG TABCR PO SCH (09:00)
[2019-08-14] MEDS: ALBUTEROL HFA 8 GM INHALER INH SCH ×4 (09:28→20:30)
[2019-08-14] MEDS: ATORVASTATIN 40 MG TAB PO SCH (09:29)
[2019-08-14] MEDS: nadoloL 40 MG TAB PO SCH (09:29)
[2019-08-14] MEDS: ASPIRIN 81 MG ECTAB PO SCH (09:29)
[2019-08-14] MEDS: PRENATAL VITAMIN 1 TAB PO SCH (09:30)
[2019-08-14] MEDS: MULTIVITAMIN TAB PO SCH (09:30)
[2019-08-14] MEDS: CALCIUM CARBONATE 1250MG TAB PO SCH (09:30)
[2019-08-14] MEDS: lisinopriL 40 MG TAB PO SCH (09:30)
--- NOTE | 2019-08-14 13:31 | Psychiatric Progress Note ---
Date of Service August 14, 2019 Impression / Recommendations Impression 69-year-old female admitted voluntarily for inpatient psychiatric treatment on 08/06/2019 after presenting to the ED for mental health evaluation. Patient verbalized the belief that she gave recently, her story varies from 1 baby 1.5 years ago to as many as 5 babies as recently as 06/19/2019. Family reported she was not caring for her needs. Given history of numerous psychiatric hospitalizations, delusional thought process, history of mood symptoms, and current flight of ideas and looseness of associations we will proceed with a working diagnosis of schizoaffective disorder, bipolar type. Switching from aripiprazole to paliperidone to target delusional thought content and disorganization of thought process. She has been highly preoccupied with the actions of staff and other patients, as well as various medical delusions (pulling teeth from her head, believing she has passed a tapeworm). Pt was becoming fixated on another patient's children, believing they were her own - we are therefore adding age restrictions to visitors to prevent further issues. Inpatient psychiatric treatment remains the most appropriate and least restrictive setting at this time, as patient remains delusional and is demonstrating inability to tolerate community re-entry. (1) Schizoaffective disorder, bipolar type: 08/07 - Admitted to a locked inpatient behavioral health unit, on q15 minute safety checks - Initiate aripiprazole 5mg qAM to target psychosis, with indication for depressive symptoms as well - risks, benefits, and potential side effects reviewed. Pt verbalized understanding and is agreeable - Will discontinue sertraline as patient reports nausea has prevented regular compliance; she has only been taking it every 4-5 days - Will require collateral information from and/or children regarding her psychiatric history - are recent admissions only list depression - Encourage participation in group and recreational therapies - Encourage family meeting to involve outpatient supports in safety planning - Arrange appropriate aftercare with referrals for a therapist and psychiatrist at discharge 2 --increase Abilify 7.5 mg today. Baseline AIMS appears to be 0. 2/2 --Abilify 10 mg daily (improving) 2/3 --Abilify 15 mg daily, hesitant to add lithium given TSH elevation (daughter reportedly did well on it in combo with Clozaril). 2/4 - Continue aripiprazole 15mg daily - consider need for further titration versus trial of an alternative agent as patient continues to be floridly psychotic with ongoing disorganization of thought and delusional thought content - Family meeting was attempted yesterday with patient's daughter and - patient was limited in her ability to tolerate the meeting - Continue to arrange aftercare 08/12 - Titrate aripiprazole to 20mg daily starting tomorrow morning - patient remains delusional with inability to participate in reality testing - Pt more focused on various physical complaints (headache, dizziness, parasites) - continue to monitor, brief neuro assessment completed without any gross abnormalities - Will need to schedule a repeat family meeting once patient is better able to tolerate - Coordinate care with outpatient providers - Fasting labs obtained on 08/08/2019 - fasting glucose and lipid panel with all values WNL 08/13 - Cross-taper from aripiprazole to paliperidone, as patient is not demonstrating significant improvement with aripiprazole trial - Pt remains preoccupied with numerous physical complaints - now believing she pulled teeth from her head and that she has a tapeworm - Continue to coordinate care with family; will require repeat family meeting once able to tolerate the interaction 08/14 - Continue cross-taper from aripiprazole to paliperidone. Pt received last dose of aripiprazole this morning, and will increase paliperidone to 9mg tomorrow morning (2) Delusion of : 08/07 - Patient's reports are inconsistent. She reports giving to 5 babies recently, but then also told ED staff that she believes she is currently - ruled out - urine HCG is negative; patient admits to tubal ligation in 08/09--patient still believes had multiple infants last year but clearly states not now. Believes children are alive and in [place] (3) History of MRSA infection: first swab negative on admission, MNPR pending 2nd swab day 5 if still hospitalized. 08/11 - Repeat MRSA swab obtained today, results are positive - Maintain MNPR at this time (4) Wheezing on auscultation: repeat CBC, CXR, Mucinex prn, ventolin inhaler q4 hr WA. (5) TSH elevation: will need repeat as outpatient within 6 weeks via primary care Risk Factors Assessment Male: No : Yes Mental Health Diagnoses: Yes Previous Psychiatric Hospitalization: Yes Protective Factors Assessment Oriental Orthodox Beliefs: Yes : Yes Employed: No Stable Relationships: Yes Supportive Family: Yes Interval History Identifying Information MARIAMA TORRES is a 69-year-old F who currently lives in [place] with her . Pt only reports a history of depression though is familiar with the term "schizophrenia". She was admitted on 08/06/19 17:58 on a 201 voluntary commitment for delusions and reported inability to care for self according to . Chief Complaint "I am trying to get them all to turn to their Bible." Review of Systems Notes Constitutional: reports intermittent dizziness Cardiovascular: denied Respiratory: denied Gastrointestinal: reports an episode of diarrhea today Neurological: denied Psychiatric: denies symptoms other than stated above Total of at least 10 systems reviewed, pertinent positives as above and in HPI. Sleep Information Total Hours of Sleep: 4 Sleep Comments: pt on q-15 minute checks Meal Information Percent Meal Consumed - Breakfast: 100 Percent Meal Consumed - Lunch: 80 Percent Meal Consumed - Dinner: 100 Subjective Subjective Patient was seen & assessed and interval progress reviewed with treatment team. Staff report the patient has been attending unit programming; however, requires significant redirection and still has difficulty remaining on topic. It was reported that the patient acquired a bag of another patient's clothing last evening, believing it was her own and was unwilling for a considerable amount of time to return it. Patient was seen today to assess progress since admission. She provides verbal consent to allow Cynthia Gonzalez PA-C to observe today's encounter. Patient states that she is doing well, but admits she had to leave activity group due to an episode of diarrhea. Patient states "I thought I could go back, but I figured I would lay down for a bit instead." Patient makes several yarsanism references based on her interactions with peers today, even stating "I am trying to get them to turn to the Bible." She continues to be preoccupied with a parasite she believes she killed in the shower the other day. Patient states that she had a positive visit with her and daughter last evening, but does not mention any concerns related to another patient's clothing. Patient denies other needs or concerns at this time, and denies issues with current medication regimen. Physical Exam Psychiatric Orientation: alert and cooperative Apperance: appropriately dressed and + disheveled (Hair is unkempt); + inappropriately groomed (Malodorous, wearing same outfit for several days) Eye Contact: good eye contact Motor Behavior: no abnormal motor movements (Observed while laying in bed) Speech: normal rate/rhythm/volume of speech Affect: euthymic affect and + constricted affect Mood: no depressed mood and no anxious mood "I think I am getting better" Thought Process: + tangential thought process; + thought process not clear or coherent Thought Content: + preoccupation (With various delusional medical concerns) and + delusions Suicidal Thoughts: denies suicidal thoughts Homicidal Thoughts: denies homicidal thoughts Hallucinations: no auditory hallucinations and no visual hallucinations Cognition: language grossly intact; + attention not intact Insight: + impaired insight Judgement: + impaired judgement Vital Signs (Past 24 Hours) Last Vital Signs Temp 36.3 C L 08/14/19 06:53 Pulse 68 08/14/19 06:53 Resp 18 08/14/19 06:53 BP 130/79 08/14/19 06:53 Pulse Ox 97 08/09/19 11:34 Results & Data Current Inpatient Medications Current Inpatient Medications: Current Inpatient Medications Acetaminophen (Tylenol) 650 mg PO Q4H PRN PRN Reason: Headache or Minor Fever Stop: 09/05/19 17:57 Last Admin: 08/12/19 01:06 Dose: 650 mg Documented by: Al Hydrox/Mg Hydrox/Simethicone (Maalox) 30 ml PO Q4H PRN PRN Reason: GI Upset Stop: 09/05/19 17:57 Albuterol (V[facility]olin Hfa) [facility] Stop: 09/08/19 11:59 Last Admin: 08/14/19 13:00 Dose: 2 puffs Documented by: [facility]ip[facility] ([facility]ilify) [facility] Stop: 09/13/19 08:59 Last Admin: 08/14/19 09:29 Dose: 10 mg Documented by: Aspirin (Ecotrin Ectab) 81 mg [facility] Stop: 09/06/19 08:59 Last Admin: 08/14/19 09:29 Dose: 81 mg Documented by: Atorvastatin Calcium (Lipitor) 40 mg [facility] Stop: 09/06/19 08:59 Last Admin: 08/14/19 09:29 Dose: 40 mg Documented by: Bismuth Subsalicylate (Kaopectate) 15 ml PO PRN PRN PRN Reason: Loose Stool Stop: 09/05/19 17:57 Calcium Carbonate (Os-Jae 500) 1,250 mg PO [facility] Stop: 09/06/19 08:59 Last Admin: 08/14/19 09:30 Dose: 1,250 mg Documented by: Guaifenesin (Mucinex) 600 mg PO Q12 PRN PRN Reason: Cough Stop: 09/08/19 20:59 Last Admin: 08/09/19 10:22 Dose: 600 mg Documented by: Hydroxyzine HCl (Vistaril) 50 mg PO HSZ PRN PRN Reason: Insomnia Stop: 09/05/19 17:57 Hydroxyzine HCl (Vistaril) 25 mg PO Q4H PRN PRN Reason: Anxiety Stop: 09/05/19 17:57 Lisinopril (Zestril) 40 mg PO [facility] Stop: 09/06/19 08:59 Last Admin: 08/14/19 09:30 Dose: 40 mg Documented by: Magnesium Hydroxide (Milk Of Magnesia) 30 ml PO DAILY PRN PRN Reason: Constipation Stop: 09/05/19 17:57 Multivitamins (Multivitamin Tab) 1 tab PO [facility] Stop: 09/06/19 08:59 Last Admin: 08/14/19 09:30 Dose: 1 tab Documented by: Nadolol (Corgard) 80 mg PO [facility] Stop: 09/06/19 08:59 Last Admin: 08/14/19 09:29 Dose: 80 mg Documented by: Paliperidone (Invega) 6 mg PO [facility] Stop: 09/13/19 08:59 Last Admin: 08/14/19 09:29 Dose: 6 mg Documented by: Polyethylene Glycol (Miralax Powder Packet) 17 gm PO DAILY PRN PRN Reason: Constipation Stop: 09/05/19 17:59 Last Admin: 08/13/19 08:07 Dose: 17 gm Documented by: Katelynnat Multivit/Bowdens/Iron/Folic Ac ( Vitamin) 1 [facility] Stop: 09/06/19 08:59 Last Admin: 08/14/19 09:30 Dose: 1 tab Documented by: Sodium Chloride (Rolette Nasal) 1 - 2 sprays NA PRN PRN PRN Reason: Nasal Dryness/Congestion Stop: 09/05/19 17:57 Triamcinolone Acetonide (Kenalog 0.025%) 1 appln TOP BID PRN PRN Reason: SKIN IRRITATIONS Stop: 09/05/19 17:59 Last Admin: 08/13/19 07:43 Dose: 1 appln Documented by: Mental Health & Subst Abuse Tx Psychiatrist Name of Psychiatrist: Ranjana Price PA-C Psychiatrist's Date of Appointment with Psychiatrist: 08/14/19 Time of Appointment with Psychiatrist: 2:30pm Psychiatric Appointment Comment: [facility] [place] [place] [address] Therapist Name of Therapist: Jenaro Poultry Debeaker Name of Poultry Debeaker: [facility] (referral completed) Phone Number for Poultry Debeaker: [phone] Post Discharge Appointments Primary Care Physician Name Of Family Doctor: Dr. Quintero Primary Care Provider Appointment Comment: As needed Contact Information Discharge Discharge Address: [address] [place] [address], [place] [address]
[2019-08-15] MEDS: ALBUTEROL HFA 8 GM INHALER INH SCH ×4 (08:34→20:53)
[2019-08-15] MEDS: PALIPERIDONE 3 MG TABCR PO SCH (08:35)
[2019-08-15] MEDS: PRENATAL VITAMIN 1 TAB PO SCH (08:35)
[2019-08-15] MEDS: MULTIVITAMIN TAB PO SCH (08:35)
[2019-08-15] MEDS: nadoloL 40 MG TAB PO SCH (08:35)
[2019-08-15] MEDS: ATORVASTATIN 40 MG TAB PO SCH (08:35)
[2019-08-15] MEDS: ASPIRIN 81 MG ECTAB PO SCH (08:35)
[2019-08-15] MEDS: lisinopriL 40 MG TAB PO SCH (08:36)
[2019-08-15] MEDS: CALCIUM CARBONATE 1250MG TAB PO SCH (08:36)
--- NOTE | 2019-08-15 15:43 | Psychiatric Progress Note ---
Date of Service August 15, 2019 Impression / Recommendations Impression 69-year-old female admitted voluntarily for inpatient psychiatric treatment on 08/06/2019 after presenting to the ED for mental health evaluation. Patient verbalized the belief that she gave recently, her story varies from 1 baby 1.5 years ago to as many as 5 babies as recently as 06/19/2019. Family reported she was not caring for her needs. Given history of numerous psychiatric hospitalizations, delusional thought process, history of mood symptoms, and current flight of ideas and looseness of associations we will proceed with a working diagnosis of schizoaffective disorder, bipolar type. Switching from aripiprazole to paliperidone to target delusional thought content and disorganization of thought process. She has been highly preoccupied with the actions of staff and other patients, as well as various medical delusions (pulling teeth from her head, believing she has passed a tapeworm). Pt was becoming fixated on another patient's children, believing they were her own - we are therefore adding age restrictions to visitors to prevent further issues. Inpatient psychiatric treatment remains the most appropriate and least restrictive setting at this time, as patient remains delusional and is demonstrating inability to tolerate community re-entry. (1) Schizoaffective disorder, bipolar type: 08/07 - Admitted to a locked inpatient behavioral health unit, on q15 minute safety checks - Initiate aripiprazole 5mg qAM to target psychosis, with indication for depressive symptoms as well - risks, benefits, and potential side effects reviewed. Pt verbalized understanding and is agreeable - Will discontinue sertraline as patient reports nausea has prevented regular compliance; she has only been taking it every 4-5 days - Will require collateral information from and/or children regarding her psychiatric history - are recent admissions only list depression - Encourage participation in group and recreational therapies - Encourage family meeting to involve outpatient supports in safety planning - Arrange appropriate aftercare with referrals for a therapist and psychiatrist at discharge 2 --increase Abilify 7.5 mg today. Baseline AIMS appears to be 0. 2/2 --Abilify 10 mg daily (improving) 2/3 --Abilify 15 mg daily, hesitant to add lithium given TSH elevation (daughter reportedly did well on it in combo with Clozaril). 2/4 - Continue aripiprazole 15mg daily - consider need for further titration versus trial of an alternative agent as patient continues to be floridly psychotic with ongoing disorganization of thought and delusional thought content - Family meeting was attempted yesterday with patient's daughter and - patient was limited in her ability to tolerate the meeting - Continue to arrange aftercare 08/12 - Titrate aripiprazole to 20mg daily starting tomorrow morning - patient remains delusional with inability to participate in reality testing - Pt more focused on various physical complaints (headache, dizziness, parasites) - continue to monitor, brief neuro assessment completed without any gross abnormalities - Will need to schedule a repeat family meeting once patient is better able to tolerate - Coordinate care with outpatient providers - Fasting labs obtained on 08/08/2019 - fasting glucose and lipid panel with all values WNL 08/13 - Cross-taper from aripiprazole to paliperidone, as patient is not demonstrating significant improvement with aripiprazole trial - Pt remains preoccupied with numerous physical complaints - now believing she pulled teeth from her head and that she has a tapeworm - Continue to coordinate care with family; will require repeat family meeting once able to tolerate the interaction 08/14 - Continue cross-taper from aripiprazole to paliperidone. Pt received last dose of aripiprazole this morning, and will increase paliperidone to 9mg tomorrow morning 08/15 -Patient has completed Abilify to invega cross-taper. -Remains floridly psychotic with complex delusions and disorganized thought process. Continued psychiatric hospitalization remains necessary for ongoing treatment and provision of safety due to degree of psychosis (2) Delusion of : 08/07 - Patient's reports are inconsistent. She reports giving to 5 babies recently, but then also told ED staff that she believes she is currently - ruled out - urine HCG is negative; patient admits to tubal ligation in 08/09--patient still believes had multiple infants last year but clearly states not now. Believes children are alive and in [place] (3) History of MRSA infection: first swab negative on admission, MNPR pending 2nd swab day 5 if still hospitalized. 08/11 - Repeat MRSA swab obtained today, results are positive - Maintain MNPR at this time (4) Wheezing on auscultation: repeat CBC, CXR, Mucinex prn, ventolin inhaler q4 hr WA. (5) TSH elevation: will need repeat as outpatient within 6 weeks via primary care Risk Factors Assessment Male: No : Yes Mental Health Diagnoses: Yes Previous Psychiatric Hospitalization: Yes Protective Factors Assessment Holiness Beliefs: Yes : Yes Employed: No Stable Relationships: Yes Supportive Family: Yes Interval History Identifying Information MARIAMA TORRES is a 69-year-old F who currently lives in [place] with her . Pt only reports a history of depression though is familiar with the term "schizophrenia". She was admitted on 08/06/19 17:58 on a 201 voluntary commitment for delusions and reported inability to care for self according to . Chief Complaint "It seemed so real". Review of Systems Notes Fatigue. Denies headache Sleep Information Total Hours of Sleep: 5 Sleep Comments: pt on q-15 minute checks Meal Information Percent Meal Consumed - Breakfast: 100 Percent Meal Consumed - Lunch: 80 Percent Meal Consumed - Dinner: 90 Subjective Subjective Patient was seen & assessed and interval progress reviewed with treatment team. Per staff, patient continues to demonstrate persistent delusional ideation. Appears mildly agitated at times when reality testing is attempted. Delusions reportedly becoming more somatic. As example, she has recently reported pulling teeth out of her scalp which improved headache. Is attending to ADLs without prompting. Reviewed recent transition from Abilify to Invega. Scheduled for meeting with gearcase assembler on Saturday. On interview she demonstrates complex delusional system with inconsistencies readily apparent, and a confabulatory quality. She reports that she needs vitamins, that she recently had 3 children, a boy and 2 girls, on June 19. The girl was initially breech and after sticking her leg out of the patient's vagina, was manipulated by the patient and ultimately born and 18 inches long, followed by the of 2 male infants that were only a few inches long but otherwise normally formed. She initially states that the babies were taken from her and later reports that she sent them to the [facility] because her mother and have MRSA. She acknowledges that 69-year-old women are typically no longer able to conceive and she seems to consider this briefly before responding that she knows that she had these children. She repeats several times during the interview "it seemed so real to me" which might suggest at least a small degree of insight that her experience may not have been factual. Physical Exam Psychiatric Orientation: alert and cooperative Apperance: not disheveled Eye Contact: good eye contact Motor Behavior: no abnormal motor movements; no psychomotor agitation, no psychomotor retardation and n EPS Speech: normal rate/rhythm/volume of speech Affect: euthymic affect; no labile affect Mood: no depressed mood Thought Process: + looseness of associations Thought Content: + delusions Suicidal Thoughts: denies suicidal thoughts Hallucinations: no auditory hallucinations, no visual hallucinations and no tactile hallucinations Cognition: + attention not intact Insight: + poor insight Judgement: + impaired judgement Vital Signs (Past 24 Hours) Last Vital Signs Temp 36.5 C 08/15/19 07:15 Pulse 77 08/15/19 07:16 Resp 18 08/15/19 07:15 BP 136/79 08/15/19 07:16 Pulse Ox 97 08/09/19 11:34 Results & Data Current Inpatient Medications Current Inpatient Medications: Current Inpatient Medications Acetaminophen (Tylenol) 650 mg PO Q4H PRN PRN Reason: Headache or Minor Fever Stop: 09/05/19 17:57 Last Admin: 08/12/19 01:06 Dose: 650 mg Documented by: Al Hydrox/Mg Hydrox/Simethicone (Maalox) 30 ml PO Q4H PRN PRN Reason: GI Upset Stop: 09/05/19 17:57 Albuterol (Ventolin Hfa) [facility] Stop: 09/08/19 11:59 Last Admin: 08/15/19 12:03 Dose: 2 puffs Documented by: Aspirin (Ecotrin Ectab) 81 mg PO [facility] Stop: 09/06/19 08:59 Last Admin: 08/15/19 08:35 Dose: 81 mg Documented by: Atorvastatin Calcium (Lipitor) [facility] Stop: 09/06/19 08:59 Last Admin: 08/15/19 08:35 Dose: 40 mg Documented by: Bismuth Subsalicylate (Kaopectate) 15 ml PO PRN PRN PRN Reason: Loose Stool Stop: 09/05/19 17:57 Calcium Carbonate (Os-Jae 500) 1,250 mg [facility] Stop: 09/06/19 08:59 Last Admin: 08/15/19 08:36 Dose: 1,250 mg Documented by: Guaifenesin (Mucinex) 600 mg PO Q12 PRN PRN Reason: Cough Stop: 09/08/19 20:59 Last Admin: 08/09/19 10:22 Dose: 600 mg Documented by: Hydroxyzine HCl (Vistaril) 50 mg PO HSZ PRN PRN Reason: Insomnia Stop: 09/05/19 17:57 Hydroxyzine HCl (Vistaril) 25 mg PO Q4H PRN PRN Reason: Anxiety Stop: 09/05/19 17:57 Lisinopril (Zestril) 40 mg PO [facility] Stop: 09/06/19 08:59 Last Admin: 08/15/19 08:36 Dose: 40 mg Documented by: Magnesium Hydroxide (Milk Of Magnesia) 30 ml PO DAILY PRN PRN Reason: Constipation Stop: 09/05/19 17:57 Multivitamins (Multivitamin Tab) 1 tab PO [facility] Stop: 09/06/19 08:59 Last Admin: 08/15/19 08:35 Dose: 1 tab Documented by: Nadolol (Corgard) 80 mg PO [facility] Stop: 09/06/19 08:59 Last Admin: 08/15/19 08:35 Dose: 80 mg Documented by: Paliperidone (Invega) 9 mg PO [facility] Stop: 09/14/19 08:59 Last Admin: 08/15/19 08:35 Dose: 9 mg Documented by: Polyethylene Glycol (Miralax Powder Packet) 17 gm PO DAILY PRN PRN Reason: Constipation Stop: 09/05/19 17:59 Last Admin: 08/13/19 08:07 Dose: 17 gm Documented by: Prenat Multivit/Sauk/Iron/Folic Ac ( Vitamin) 1 tab PO [facility] Stop: 09/06/19 08:59 Last Admin: 08/15/19 08:35 Dose: 1 tab Documented by: Sodium Chloride (Sena Nasal) 1 - 2 sprays NA PRN PRN PRN Reason: Nasal Dryness/Congestion Stop: 09/05/19 17:57 Triamcinolone Acetonide (Kenalog 0.025%) 1 appln TOP BID PRN PRN Reason: SKIN IRRITATIONS Stop: 09/05/19 17:59 Last Admin: 08/13/19 07:43 Dose: 1 appln Documented by: Mental Health & Subst Abuse Tx Psychiatrist Name of Psychiatrist: Ranjana Price PA-C Psychiatrist's Date of Appointment with Psychiatrist: 08/14/19 Time of Appointment with Psychiatrist: 2:30pm Psychiatric Appointment Comment: [facility] [place] [address] Therapist Name of Therapist: Jenaro Ham Doctor Name of Ham Doctor: [facility] Laura Phone Number for Ham Doctor: [phone] Post Discharge Appointments Primary Care Physician Name Of Family Doctor: Dr. Quintero Primary Care Provider Appointment Comment: As needed Contact Information Discharge Discharge Address: [address] [place] [address], [place] [address]
[2019-08-16] MEDS: TRIAMCINOLONE ACET 0.025% CR 15 GM TUBE TOP PRN (07:50)
[2019-08-16] MEDS: ALBUTEROL HFA 8 GM INHALER INH SCH ×4 (08:25→21:09)
[2019-08-16] MEDS: CALCIUM CARBONATE 1250MG TAB PO SCH (08:26)
[2019-08-16] MEDS: MULTIVITAMIN TAB PO SCH (08:26)
[2019-08-16] MEDS: ASPIRIN 81 MG ECTAB PO SCH (08:26)
[2019-08-16] MEDS: PALIPERIDONE 3 MG TABCR PO SCH (08:26)
[2019-08-16] MEDS: ATORVASTATIN 40 MG TAB PO SCH (08:26)
[2019-08-16] MEDS: nadoloL 40 MG TAB PO SCH (08:26)
[2019-08-16] MEDS: lisinopriL 40 MG TAB PO SCH (08:27)
[2019-08-16] MEDS: PRENATAL VITAMIN 1 TAB PO SCH (08:27)
--- NOTE | 2019-08-16 11:57 | Psychiatric Progress Note ---
Date of Service August 16, 2019 Impression / Recommendations Impression 69-year-old female admitted voluntarily for inpatient psychiatric treatment on 08/06/2019 after presenting to the ED for mental health evaluation. Patient verbalized the belief that she gave recently, her story varies from 1 baby 1.5 years ago to as many as 5 babies as recently as 06/19/2019. Family reported she was not caring for her needs. Given history of numerous psychiatric hospitalizations, delusional thought process, history of mood symptoms, and current flight of ideas and looseness of associations we will proceed with a working diagnosis of schizoaffective disorder, bipolar type. Switching from aripiprazole to paliperidone to target delusional thought content and disorganization of thought process. She has been highly preoccupied with the actions of staff and other patients, as well as various medical delusions (pulling teeth from her head, believing she has passed a tapeworm). Pt was becoming fixated on another patient's children, believing they were her own - we are therefore adding age restrictions to visitors to prevent further issues. Inpatient psychiatric treatment remains the most appropriate and least restrictive setting at this time, as patient remains delusional and is demonstrating inability to tolerate community re-entry. (1) Schizoaffective disorder, bipolar type: 08/07 - Admitted to a locked inpatient behavioral health unit, on q15 minute safety checks - Initiate aripiprazole 5mg qAM to target psychosis, with indication for depressive symptoms as well - risks, benefits, and potential side effects reviewed. Pt verbalized understanding and is agreeable - Will discontinue sertraline as patient reports nausea has prevented regular compliance; she has only been taking it every 4-5 days - Will require collateral information from and/or children regarding her psychiatric history - are recent admissions only list depression - Encourage participation in group and recreational therapies - Encourage family meeting to involve outpatient supports in safety planning - Arrange appropriate aftercare with referrals for a therapist and psychiatrist at discharge 2 --increase Abilify 7.5 mg today. Baseline AIMS appears to be 0. 2/2 --Abilify 10 mg daily (improving) 2/3 --Abilify 15 mg daily, hesitant to add lithium given TSH elevation (daughter reportedly did well on it in combo with Clozaril). 2/4 - Continue aripiprazole 15mg daily - consider need for further titration versus trial of an alternative agent as patient continues to be floridly psychotic with ongoing disorganization of thought and delusional thought content - Family meeting was attempted yesterday with patient's daughter and - patient was limited in her ability to tolerate the meeting - Continue to arrange aftercare 08/12 - Titrate aripiprazole to 20mg daily starting tomorrow morning - patient remains delusional with inability to participate in reality testing - Pt more focused on various physical complaints (headache, dizziness, parasites) - continue to monitor, brief neuro assessment completed without any gross abnormalities - Will need to schedule a repeat family meeting once patient is better able to tolerate - Coordinate care with outpatient providers - Fasting labs obtained on 08/08/2019 - fasting glucose and lipid panel with all values WNL 08/13 - Cross-taper from aripiprazole to paliperidone, as patient is not demonstrating significant improvement with aripiprazole trial - Pt remains preoccupied with numerous physical complaints - now believing she pulled teeth from her head and that she has a tapeworm - Continue to coordinate care with family; will require repeat family meeting once able to tolerate the interaction 08/14 - Continue cross-taper from aripiprazole to paliperidone. Pt received last dose of aripiprazole this morning, and will increase paliperidone to 9mg tomorrow morning 08/15 -Patient has completed Abilify to invega cross-taper. -Remains floridly psychotic with complex delusions and disorganized thought process. Continued psychiatric hospitalization remains necessary for ongoing treatment and provision of safety due to degree of psychosis 08/16 -Patient remains delusional with some flight of ideas. At times she seems a little self-aggrandizing and thoughts are certainly coming rapidly and she remains very busy minded. I wonder if she might benefit from an anticonvulsant retrial. Given self-report of some possible multimodal hallucinations and clinical history, I would like to check a bedside EEG to try to rule out something like temporal lobe epilepsy as possible contributing underlying etiology. Routine EEG not available over weekend and will be ordered for Saturday. -Primary team can consider further titration of invega in the next few days (2) Delusion of : 08/07 - Patient's reports are inconsistent. She reports giving to 5 babies recently, but then also told ED staff that she believes she is currently - ruled out - urine HCG is negative; patient admits to tubal ligation in 08/09--patient still believes had multiple infants last year but clearly states not now. Believes children are alive and in [place] (3) History of MRSA infection: first swab negative on admission, MNPR pending 2nd swab day 5 if still hospitalized. 08/11 - Repeat MRSA swab obtained today, results are positive - Maintain MNPR at this time (4) Wheezing on auscultation: repeat CBC, CXR, Mucinex prn, ventolin inhaler q4 hr WA. (5) TSH elevation: will need repeat as outpatient within 6 weeks via primary care Risk Factors Assessment Male: No : Yes Mental Health Diagnoses: Yes Previous Psychiatric Hospitalization: Yes Protective Factors Assessment Uatsdin Beliefs: Yes : Yes Employed: No Stable Relationships: Yes Supportive Family: Yes Interval History Identifying Information MARIAMA TORRES is a 69-year-old F who currently lives in [place] with her . Pt only reports a history of depression though is familiar with the term "schizophrenia". She was admitted on 08/06/19 17:58 on a 201 voluntary commitment for delusions and reported inability to care for self according to . Chief Complaint " I have $83 trillion dollars and I fed all the people of [place]". Review of Systems Sleep Information Total Hours of Sleep: 6.75 Sleep Comments: awake at 0030 for a snack Meal Information Percent Meal Consumed - Breakfast: 100 Percent Meal Consumed - Lunch: 80 Percent Meal Consumed - Dinner: 100 Subjective Subjective Patient was seen & assessed and interval progress reviewed with treatment team. Patient remains quite delusional per staff but typically redirectable. No aggression or acute behavioral disturbances overnight. Reviewed no recent neurology work-up. Patient believes she may have been treated with Tegretol in the past. When asked if she ever had a seizure she states that she once had a sleep study that showed a "spike" but she is not sure what that meant. She describes a perception of visions of some geometric shapes upon transitioning to wakefulness and believes she may have olfactory hallucinations of animals. Her self-report is certainly unreliable though. She tells me today that she found out recently that she has $83 trillion in the bank and that she wants fed all of the people of [place] with that money and they want her to return. She denies feeling that she has special garnica or special purpose. In attempting to appreciate if she feels that her thoughts are racing she responds by telling me that she feels like she she would as if she was at work and had a lot that she had to get done. She states she feels very good and expresses interest in discharge but states that she is willing to stay for additional medical work-up and treatment. Physical Exam Psychiatric Orientation: alert and cooperative Apperance: appropriately dressed and + disheveled Eye Contact: good eye contact Motor Behavior: no abnormal motor movements; n EPS Speech: no pressured speech (But is overproductive and rapid) Affect: euthymic affect Mood: no depressed mood Thought Process: + looseness of associations Thought Content: + delusions Suicidal Thoughts: denies suicidal thoughts Homicidal Thoughts: denies homicidal thoughts Hallucinations: + visual hallucinations (Possible mild visual and olfactory hallucinations) Cognition: + attention not intact Insight: + poor insight Judgement: + poor judgement Vital Signs (Past 24 Hours) Last Vital Signs Temp 36.3 C L 08/16/19 07:00 Pulse 71 08/16/19 08:24 Resp 18 08/16/19 07:00 BP 118/71 08/16/19 08:24 Pulse Ox 97 08/09/19 11:34 Results & Data Current Inpatient Medications Current Inpatient Medications: Current Inpatient Medications Acetaminophen (Tylenol) 650 mg PO Q4H PRN PRN Reason: Headache or Minor Fever Stop: 09/05/19 17:57 Last Admin: 08/12/19 01:06 Dose: 650 mg Documented by: Al Hydrox/Mg Hydrox/Simethicone (Maalox) 30 ml PO Q4H PRN PRN Reason: GI Upset Stop: 09/05/19 17:57 Last Admin: 08/15/19 21:18 Dose: 30 ml Documented by: Albuterol (Ventolin Hfa) 2 puffs INH Q4HWA [facility] Stop: 09/08/19 11:59 Last Admin: 08/16/19 08:25 Dose: 2 puffs Documented by: Aspirin (Ecotrin Ectab) [facility] [place] Stop: 09/06/19 08:59 Last Admin: 08/16/19 08:26 Dose: 81 mg Documented by: Atorvastatin Calcium (Lipitor) 40 [facility] [place] Stop: 09/06/19 08:59 Last Admin: 08/16/19 08:26 Dose: 40 mg Documented by: Bismuth Subsalicylate (Kaopectate) 15 ml PO PRN PRN PRN Reason: Loose Stool Stop: 09/05/19 17:57 Calcium Carbonate (Os-Jae 500) 1,250 mg PO [facility] Stop: 09/06/19 08:59 Last Admin: 08/16/19 08:26 Dose: 1,250 mg Documented by: Guaifenesin (Mucinex) 600 mg PO Q12 PRN PRN Reason: Cough Stop: 09/08/19 20:59 Last Admin: 08/09/19 10:22 Dose: 600 mg Documented by: Hydroxyzine HCl (Vistaril) 50 mg PO HSZ PRN PRN Reason: Insomnia Stop: 09/05/19 17:57 Hydroxyzine HCl (Vistaril) 25 mg PO Q4H PRN PRN Reason: Anxiety Stop: 09/05/19 17:57 Lisinopril (Zestril) 40 mg PO [facility] Stop: 09/06/19 08:59 Last Admin: 08/16/19 08:27 Dose: 40 mg Documented by: Magnesium Hydroxide (Milk Of Magnesia) 30 ml PO DAILY PRN PRN Reason: Constipation Stop: 09/05/19 17:57 Multivitamins (Multivitamin Tab) 1 tab PO [facility] Stop: 09/06/19 08:59 Last Admin: 08/16/19 08:26 Dose: 1 tab Documented by: Nadolol (Corgard) 80 mg PO [facility] Stop: 09/06/19 08:59 Last Admin: 08/16/19 08:26 Dose: 80 mg Documented by: Paliperidone (Invega) 9 mg PO [facility] Stop: 09/14/19 08:59 Last Admin: 08/16/19 08:26 Dose: 9 mg Documented by: Polyethylene Glycol (Miralax Powder Packet) 17 gm PO DAILY PRN PRN Reason: Constipation Stop: 09/05/19 17:59 Last Admin: 08/13/19 08:07 Dose: 17 gm Documented by: Prenat Multivit/[place]/Iron/Folic Ac ( Vitamin) 1 tab PO [facility] Stop: 09/06/19 08:59 Last Admin: 08/16/19 08:27 Dose: 1 tab Documented by: Sodium Chloride ([place] Nasal) 1 - 2 sprays NA PRN PRN PRN Reason: Nasal Dryness/Congestion Stop: 09/05/19 17:57 Triamcinolone Acetonide (Kenalog 0.025%) 1 appln TOP BID PRN PRN Reason: SKIN IRRITATIONS Stop: 09/05/19 17:59 Last Admin: 08/16/19 07:50 Dose: 1 appln Documented by: Mental Health & Subst Abuse Tx Psychiatrist Name of Psychiatrist: Ranjana Price PA-C Psychiatrist's Date of Appointment with Psychiatrist: 08/14/19 Time of Appointment with Psychiatrist: 2:30pm Psychiatric Appointment Comment: [facility] [place] [address] Therapist Name of Therapist: Jenaro Valve Assembler Name of Valve Assembler: [facility] Laura Phone Number for Valve Assembler: [phone] Post Discharge Appointments Primary Care Physician Name Of Family Doctor: Dr. Quintero Primary Care Provider Appointment Comment: As needed Contact Information Discharge Discharge Address: [address] [place] [address], [place] [address]
[2019-08-17] MEDS: PALIPERIDONE 3 MG TABCR PO SCH (07:50)
[2019-08-17] MEDS: ASPIRIN 81 MG ECTAB PO SCH (07:50)
[2019-08-17] MEDS: ALBUTEROL HFA 8 GM INHALER INH SCH ×4 (07:50→20:54)
[2019-08-17] MEDS: nadoloL 40 MG TAB PO SCH (07:50)
[2019-08-17] MEDS: ATORVASTATIN 40 MG TAB PO SCH (07:51)
[2019-08-17] MEDS: MULTIVITAMIN TAB PO SCH (07:52)
[2019-08-17] MEDS: PRENATAL VITAMIN 1 TAB PO SCH (07:52)
[2019-08-17] MEDS: CALCIUM CARBONATE 1250MG TAB PO SCH (07:52)
[2019-08-17] MEDS: lisinopriL 40 MG TAB PO SCH (07:53)
--- NOTE | 2019-08-17 09:40 | Electroencephalogram ---
EEG Procedure Note Date of Service August 17, 2019 Start / End Times Start Time: 852 End Time: [address] Mari History Patient is a 69-year-old with some altered mental status/confusion. Home Medication List Home Medications Medication Instructions Recorded Confirmed Type Multivitamin 50 Plus 1 tab PO QAM 02/17/19 08/06/19 History [place] 3 Slim Max 1 cap PO QAM 02/17/19 08/06/19 History PNV cmb#95-ferrous fumarate-FA 1 tab PO QAM 02/17/19 08/06/19 History [] aspirin 81 mg PO QAM 02/17/19 08/06/19 History atorvastatin 40 mg PO QAM 02/17/19 08/06/19 History calcium carbonate [Calcium 500] 500 mg PO QAM 02/17/19 08/06/19 History lisinopril 40 mg PO QAM 02/17/19 08/06/19 History nadolol 80 mg PO QAM 02/17/19 08/06/19 History polyethylene glycol 3350 [Miralax] 17 g PO DAILY PRN 02/17/19 08/06/19 History sertraline 200 mg PO QAM 02/17/19 08/06/19 History triamcinolone acetonide 1 applic TOPICAL BID PRN 02/17/19 08/06/19 History turmeric 800 mg PO QAM 02/17/19 08/06/19 History Inpatient Medication List Acetaminophen (Tylenol) 650 mg PO Q4H PRN PRN Reason: Headache or Minor Fever Stop: 09/05/19 17:57 Last Admin: 08/12/19 01:06 Dose: 650 mg Documented by: [id number] Admin: 08/11/19 05:49 Dose: 650 mg Documented by: [id number] Hydrox/Mg Hydrox/Simethicone (Maalox) 30 ml PO Q4H PRN PRN Reason: GI Upset Stop: 09/05/19 17:57 Last Admin: 08/15/19 21:18 Dose: 30 ml Documented by: [id number] Albuterol (Ventolin Hfa) 2 puffs INH Q4HWA GARY Stop: 09/08/19 11:59 Last Admin: 08/17/19 07:50 Dose: 2 puffs Documented by: [id number] Admin: 08/16/19 21:09 Dose: 2 puffs Documented by: [id number] Admin: 08/16/19 15:53 Dose: 2 puffs Documented by: [id number] Admin: 08/16/19 12:12 Dose: 2 puffs Documented by: [id number] Admin: 08/16/19 08:25 Dose: 2 puffs Documented by: [id number] Admin: 08/15/19 20:53 Dose: 2 puffs Documented by: [id number] Admin: 08/15/19 16:09 Dose: 2 puffs Documented by: [id number] Admin: 08/15/19 12:03 Dose: 2 puffs Documented by: [id number] Admin: 08/15/19 08:34 Dose: 2 puffs Documented by: [id number] Admin: 08/14/19 20:30 Dose: 2 puffs Documented by: [id number] Admin: 08/14/19 15:46 Dose: 2 puffs Documented by: [id number] Admin: 08/14/19 13:00 Dose: 2 puffs Documented by: [id number] Admin: 08/14/19 09:28 Dose: 2 puffs Documented by: [id number] Admin: 08/13/19 20:19 Dose: 2 puffs Documented by: [id number] Admin: 08/13/19 16:02 Dose: 2 puffs Documented by: [id number] Admin: 08/13/19 11:29 Dose: 2 puffs Documented by: [id number] Admin: 08/13/19 07:46 Dose: 2 puffs Documented by: [id number] Admin: 08/12/19 21:10 Dose: 2 puffs Documented by: [id number] Admin: 08/12/19 15:58 Dose: 2 puffs Documented by: [id number] Admin: 08/12/19 14:17 Dose: 2 puffs Documented by: [id number] Admin: 08/12/19 07:47 Dose: 2 puffs Documented by: [id number] Admin: 08/11/19 19:48 Dose: 2 puffs Documented by: [id number] Admin: 08/11/19 17:08 Dose: 2 puffs Documented by: [id number] Admin: 08/11/19 12:37 Dose: 2 puffs Documented by: [id number] Admin: 08/11/19 08:42 Dose: 2 puffs Documented by: [id number] Admin: 08/10/19 21:38 Dose: 2 puffs Documented by: [id number] Admin: 08/10/19 16:03 Dose: 2 puffs Documented by: [id number] Admin: 08/10/19 13:26 Dose: 2 puffs Documented by: [id number] Admin: 08/10/19 08:47 Dose: 2 puffs Documented by: [id number] Admin: 08/09/19 20:40 Dose: 2 puffs Documented by: [id number] Admin: 08/09/19 15:53 Dose: 2 puffs Documented by: [id number] Admin: 08/09/19 11:37 Dose: 2 puffs Documented by: [id number] Aspirin (Ecotrin Ectab) 81 mg PO [facility] Stop: 09/06/19 08:59 Last Admin: 08/17/19 07:50 Dose: 81 mg Documented by: [id number] Admin: 08/16/19 08:26 Dose: 81 mg Documented by: [id number] Admin: 08/15/19 08:35 Dose: 81 mg Documented by: [id number] Admin: 08/14/19 09:29 Dose: 81 mg Documented by: [id number] Admin: 08/13/19 08:00 Dose: 81 mg Documented by: [id number] Admin: 08/12/19 07:48 Dose: 81 mg Documented by: [id number] Admin: 08/11/19 08:46 Dose: 81 mg Documented by: [id number] Admin: 08/10/19 08:48 Dose: 81 mg Documented by: [id number] Admin: 08/09/19 08:48 Dose: 81 mg Documented by: [id number] Admin: 08/08/19 08:59 Dose: 81 mg Documented by: [id number] Admin: 08/07/19 08:33 Dose: 81 mg Documented by: [id number] Atorvastatin Calcium (Lipitor) 40 mg PO [facility] Stop: 09/06/19 08:59 Last Admin: 08/17/19 07:51 Dose: 40 mg Documented by: [id number] Admin: 08/16/19 08:26 Dose: 40 mg Documented by: [id number] Admin: 08/15/19 08:35 Dose: 40 mg Documented by: [id number] Admin: 08/14/19 09:29 Dose: 40 mg Documented by: [id number] Admin: 08/13/19 08:01 Dose: 40 mg Documented by: [id number] Admin: 08/12/19 07:48 Dose: 40 mg Documented by: [id number] Admin: 08/11/19 08:46 Dose: 40 mg Documented by: [id number] Admin: 08/10/19 08:48 Dose: 40 mg Documented by: [id number] Admin: 08/09/19 08:48 Dose: 40 mg Documented by: [id number] Admin: 08/08/19 08:59 Dose: 40 mg Documented by: [id number] Admin: 08/07/19 08:33 Dose: 40 mg Documented by: [id number] Calcium Carbonate (Os-Jae 500) 1,250 mg PO [facility] Stop: 09/06/19 08:59 Last Admin: 08/17/19 07:52 Dose: 1,250 mg Documented by: [id number] Admin: 08/16/19 08:26 Dose: 1,250 mg Documented by: [id number] Admin: 08/15/19 08:36 Dose: 1,250 mg Documented by: [id number] Admin: 08/14/19 09:30 Dose: 1,250 mg Documented by: [id number] Admin: 08/13/19 08:01 Dose: 1,250 mg Documented by: [id number] Admin: 08/12/19 07:48 Dose: 1,250 mg Documented by: [id number] Admin: 08/11/19 08:46 Dose: 1,250 mg Documented by: [id number] Admin: 08/10/19 08:48 Dose: 1,250 mg Documented by: [id number] Admin: 08/09/19 08:48 Dose: 1,250 mg Documented by: [id number] Admin: 08/08/19 09:00 Dose: 1,250 mg Documented by: [id number] Admin: 08/07/19 08:33 Dose: 1,250 mg Documented by: [id number] Guaifenesin (Mucinex) 600 mg PO Q12 PRN PRN Reason: Cough Stop: 09/08/19 20:59 Last Admin: 08/09/19 10:22 Dose: 600 mg Documented by: [id number] [facility]) [facility]: 09/06/19 08:59 Last Admin: 08/17/19 07:53 Dose: 40 mg Documented by: [id number] Admin: 08/16/19 08:27 Dose: 40 mg Documented by: [id number] Admin: 08/15/19 08:36 Dose: 40 mg Documented by: [id number] Admin: 08/14/19 09:30 Dose: 40 mg Documented by: [id number] Admin: 08/13/19 08:01 Dose: 40 mg Documented by: [id number] Admin: 08/12/19 07:49 Dose: 40 mg Documented by: [id number] Admin: 08/11/19 08:46 Dose: 40 mg Documented by: [id number] Admin: 08/10/19 08:48 Dose: 40 mg Documented by: [id number] Admin: 08/09/19 08:49 Dose: 40 mg Documented by: [id number] Admin: 08/08/19 09:00 Dose: 40 mg Documented by: [id number] Admin: 08/07/19 08:33 Dose: 40 mg Documented by: [id number] Multivitamins (Multivitamin Tab) 1 tab PO QAM GARY Stop: 09/06/19 08:59 Last Admin: 08/17/19 07:52 Dose: 1 tab Documented by: [id number] Admin: 08/16/19 08:26 Dose: 1 tab Documented by: [id number] Admin: 08/15/19 08:35 Dose: 1 tab Documented by: [id number] Admin: 08/14/19 09:30 Dose: 1 tab Documented by: [id number] Admin: 08/13/19 08:01 Dose: 1 tab Documented by: [id number] Admin: 08/12/19 07:48 Dose: 1 tab Documented by: [id number] Admin: 08/11/19 08:46 Dose: 1 tab Documented by: [id number] Admin: 08/10/19 08:48 Dose: 1 tab Documented by: [id number] Admin: 08/09/19 08:48 Dose: 1 tab Documented by: [id number] Admin: 08/08/19 09:00 Dose: 1 tab Documented by: [id number] Admin: 08/07/19 08:33 Dose: 1 tab Documented by: [id number] Nadolol (Corgard) 80 mg PO QAM [facility] Stop: 09/06/19 08:59 Last Admin: 08/17/19 07:50 Dose: 80 mg Documented by: [id number] Admin: 08/16/19 08:26 Dose: 80 mg Documented by: [id number] Admin: 08/15/19 08:35 Dose: 80 mg Documented by: [id number] Admin: 08/14/19 09:29 Dose: 80 mg Documented by: [id number] Admin: 08/13/19 08:00 Dose: 80 mg Documented by: [id number] Admin: 08/12/19 07:47 Dose: 80 mg Documented by: [id number] Admin: 08/11/19 08:45 Dose: 80 mg Documented by: [id number] Admin: 08/10/19 08:48 Dose: 80 mg Documented by: [id number] Admin: 08/09/19 08:48 Dose: 80 mg Documented by: [id number] Admin: 08/08/19 08:59 Dose: 80 mg Documented by: [id number] Admin: 08/07/19 08:33 Dose: 80 mg Documented by: [id number] Paliperidone (Invega) 9 mg PO QAM [facility] Stop: 09/14/19 08:59 Last Admin: 08/17/19 07:50 Dose: 9 mg Documented by: [id number] Admin: 08/16/19 08:26 Dose: 9 mg Documented by: [id number] Admin: 08/15/19 08:35 Dose: 9 mg Documented by: [id number] Polyethylene Glycol (Miralax Powder Packet) 17 gm PO DAILY PRN PRN Reason: Constipation Stop: 09/05/19 17:59 Last Admin: 08/13/19 08:07 Dose: 17 gm Documented by: [id number] Admin: 08/10/19 21:58 Dose: 17 gm Documented by: [id number] Prenat Multivit/Regional Sales Manager/Iron/Folic Ac ( Vitamin) [facility] Stop: 09/06/19 08:59 Last Admin: 08/17/19 07:52 Dose: 1 tab Documented by: [id number] Admin: 08/16/19 08:27 Dose: 1 tab Documented by: [id number] Admin: 08/15/19 08:35 Dose: 1 tab Documented by: [id number] Admin: 08/14/19 09:30 Dose: 1 tab Documented by: [id number] Admin: 08/13/19 08:01 Dose: 1 tab Documented by: [id number] Admin: 08/12/19 07:48 Dose: 1 tab Documented by: [id number] Admin: 08/11/19 08:46 Dose: 1 tab Documented by: [id number] Admin: 08/10/19 08:48 Dose: 1 tab Documented by: [id number] Admin: 08/09/19 08:48 Dose: 1 tab Documented by: [id number] Admin: 08/08/19 09:00 Dose: 1 tab Documented by: [id number] Admin: 08/07/19 08:33 Dose: 1 tab Documented by: [id number] Triamcinolone Acetonide (Kenalog 0.025%) 1 appln TOP BID PRN PRN Reason: SKIN IRRITATIONS Stop: 09/05/19 17:59 Last Admin: 08/16/19 07:50 Dose: 1 appln Documented by: [id number] Admin: 08/13/19 07:43 Dose: 1 appln Documented by: [id number] Admin: 08/11/19 19:46 Dose: 1 appln Documented by: [id number] Admin: 08/10/19 19:12 Dose: 1 appln Documented by: [id number] Admin: 08/08/19 13:55 Dose: 1 appln Documented by: [id number] Admin: 08/07/19 15:03 Dose: 1 appln Documented by: [id number] Discontinued Medications Aripiprazole (Abilify) 5 mg PO [facility] Stop: 09/06/19 13:29 Last Admin: 08/08/19 08:59 Dose: 5 mg Documented by: [id number] Admin: 08/07/19 14:49 Dose: 5 mg Documented by: [id number] Aripiprazole (Abilify) 10 mg PO [facility] Stop: 09/08/19 08:59 Last Admin: 08/10/19 08:48 Dose: 10 mg Documented by: [id number] Admin: 08/09/19 08:48 Dose: 10 mg Documented by: [id number] Aripiprazole (Abilify) 2.5 mg PO ONE ONE Stop: 08/08/19 13:03 Last Admin: 08/08/19 13:53 Dose: 2.5 mg Documented by: [id number] Aripiprazole (Abilify) 15 mg PO [facility] Stop: 09/10/19 08:59 Last Admin: 08/12/19 07:47 Dose: 15 mg Documented by: [id number] Admin: 08/11/19 08:48 Dose: 15 mg Documented by: [id number] Aripiprazole (Abilify) 20 mg PO [facility] Stop: 09/12/19 08:59 Last Admin: 08/13/19 08:00 Dose: 20 mg Documented by: [id number] Aripiprazole (Abilify) 10 mg PO [facility] Stop: 09/13/19 08:59 Last Admin: 08/14/19 09:29 Dose: 10 mg Documented by: [id number] Paliperidone (Invega) 3 mg PO [facility] Stop: 09/12/19 09:44 Last Admin: 08/13/19 10:06 Dose: 3 mg Documented by: [id number] Paliperidone (Invega) 6 mg PO QAM [facility] Stop: 09/13/19 08:59 Last Admin: 08/14/19 09:29 Dose: 6 mg Documented by: [id number] Description This is a 21 electrode EEG with a single channel dedicated to limited EKG. The electrodes were placed in accordance with the International 10-20 system. Interpretation The predominant background activity consists of a somewhat irregular 9 Hz activity, of up to 40 mV in amplitude,seen symmetrically distributed over the posterior head regions bilaterally, spreading anteriorly bilaterally symmetrically.. This activity attenuates nicely with eye-opening and other alerting procedures. Photic stimulation was performed and elicited no change in the background activity and no abnormal responses were seen. Hyperventilation was not performed. A minimal amount of muscle and movement artifact activity contaminated the recording and did not hinder interpretation to any significant degree. Throughout the waking portion of the recording, no focal abnormalities, abnormal slow activity, or potentially epileptogenic discharges are seen. The patient entered the drowsy state with no further activation. In summary, this EEG was normal during wakefulness and drowsiness. No focal abnormalities, potentially epileptogenic discharges, or abnormal slow activity was seen. Clinical Correlation The abscence of potentially epileptogenic activity does not exclude a seizure disorder, since interictally, EEGs can be normal. Clinical correlation is required. [facility] EEG Procedure Codes Indication for Procedure (1) Delusions: (2) Schizoaffective disorder, bipolar type: (3) Altered mental status: Neurology Neurology: [id number] EEG include record awake & drowsy
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
[2019-08-17] MEDS: ACETAMINOPHEN 325 MG TAB PO PRN (15:52)
[2019-08-17] MEDS ORDERED: DIVALPROEX DELAY RELEASE 250 MG TABEC PO SCH (22:00)
[2019-08-18] MEDS: ALBUTEROL HFA 8 GM INHALER INH SCH ×4 (08:31→20:36)
[2019-08-18] MEDS: ASPIRIN 81 MG ECTAB PO SCH (08:32)
[2019-08-18] MEDS: nadoloL 40 MG TAB PO SCH (08:32)
[2019-08-18] MEDS: PALIPERIDONE 3 MG TABCR PO SCH (08:32)
[2019-08-18] MEDS: CALCIUM CARBONATE 1250MG TAB PO SCH (08:33)
[2019-08-18] MEDS: ATORVASTATIN 40 MG TAB PO SCH (08:33)
[2019-08-18] MEDS: MULTIVITAMIN TAB PO SCH (08:33)
[2019-08-18] MEDS: lisinopriL 40 MG TAB PO SCH (08:34)
[2019-08-18] MEDS: PRENATAL VITAMIN 1 TAB PO SCH (08:34)
--- NOTE | 2019-08-18 09:57 | Psychiatric Progress Note ---
Date of Service August 18, 2019 Impression / Recommendations Impression 69-year-old female admitted voluntarily for inpatient psychiatric treatment on 08/06/2019 after presenting to the ED for mental health evaluation. Patient verbalized the belief that she gave recently, her story varies from 1 baby 1.5 years ago to as many as 5 babies as recently as 06/19/2019. Family reported she was not caring for her needs. Given history of numerous psychiatric hospitalizations, delusional thought process, history of mood symptoms, and current flight of ideas and looseness of associations we will proceed with a working diagnosis of schizoaffective disorder, bipolar type. Switching from aripiprazole to paliperidone to target delusional thought content and disorganization of thought process. EEG obtained this morning to rule out temporal-lobe epilepsy or other possible neurologic process - no gross abnormalities noted. Will begin trial of Depakote this evening, with titration as tolerated. Pt remains highly preoccupied with the actions of staff and other patients, as well as highly focused on discharge. As she continues to be delusional about either being or having recently given to young children, children visitors have been restricted on the unit at this time. MoCA completed on 08/18/2019, with patient scoring a 27/30 (some errors noted, but with immediate corrections). Inpatient psychiatric treatment remains the most appropriate and least restrictive setting at this time, as patient remains delusional and is demonstrating inability to tolerate community re-entry. (1) Schizoaffective disorder, bipolar type: 08/07 - Admitted to a locked inpatient behavioral health unit, on q15 minute safety checks - Initiate aripiprazole 5mg qAM to target psychosis, with indication for depressive symptoms as well - risks, benefits, and potential side effects reviewed. Pt verbalized understanding and is agreeable - Will discontinue sertraline as patient reports nausea has prevented regular compliance; she has only been taking it every 4-5 days - Will require collateral information from and/or children regarding her psychiatric history - are recent admissions only list depression - Encourage participation in group and recreational therapies - Encourage family meeting to involve outpatient supports in safety planning - Arrange appropriate aftercare with referrals for a therapist and psyc hiatrist at discharge 08/08 --increase Abilify 7.5 mg today. Baseline AIMS appears to be 0. 2/2 --Abilify 10 mg daily (improving) 2 --Abilify 15 mg daily, hesitant to add lithium given TSH elevation (daughter reportedly did well on it in combo with Clozaril). 08/11 - Continue aripiprazole 15mg daily - consider need for further titration versus trial of an alternative agent as patient continues to be floridly psychotic with ongoing disorganization of thought and delusional thought content - Family meeting was attempted yesterday with patient's daughter and - patient was limited in her ability to tolerate the meeting - Continue to arrange aftercare 08/12 - Titrate aripiprazole to 20mg daily starting tomorrow morning - patient remains delusional with inability to participate in reality testing - Pt more focused on various physical complaints (headache, dizziness, parasites) - continue to monitor, brief neuro assessment completed without any gross abnormalities - Will need to schedule a repeat family meeting once patient is better able to tolerate - Coordinate care with outpatient providers - Fasting labs obtained on 08/08/2019 - fasting glucose and lipid panel with all values WNL 08/13 - Cross-taper from aripiprazole to paliperidone, as patient is not demonstrating significant improvement with aripiprazole trial - Pt remains preoccupied with numerous physical complaints - now believing she pulled teeth from her head and that she has a tapeworm - Continue to coordinate care with family; will require repeat family meeting once able to tolerate the interaction 08/14 - Continue cross-taper from aripiprazole to paliperidone. Pt received last dose of aripiprazole this morning, and will increase paliperidone to 9mg tomorrow morning 08/15 -Patient has completed Abilify to invega cross-taper. -Remains floridly psychotic with complex delusions and disorganized thought process. Continued psychiatric hospitalization remains necessary for ongoing treatment and provision of safety due to degree of psychosis 08/16 -Patient remains delusional with some flight of ideas. At times she seems a little self-aggrandizing and thoughts are certainly coming rapidly and she remains very busy minded. I wonder if she might benefit from an anticonvulsant retrial. Given self-report of some possible multimodal hallucinations and clinical history, I would like to check a bedside EEG to try to rule out something like temporal lobe epilepsy as possible contributing underlying etiology. Routine EEG not available over weekend and will be ordered for Saturday. -Primary team can consider further titration of invega in the next few days 08/17 - Continue paliperidone 9mg daily - Routine EEG completed this morning; "no focal abnormalities, potentially epileptogenic discharges, or abnormal slow activity was seen". Will begin trial of Depakote, starting with 250mg this evening - continue titration as tolerated - Pt remains delusional and is difficult to redirect at times, though she remains pleasant and continues to participate in group programming 08/18 - Continue paliperidone 9mg qAM - Depakote increased to 500mg for this evening. Pt continues to deny medication side effects - Pt continues to verbalize delusional thought content, believing her new rehabilitation case coordinator will help her get her 3 babies back from [place] - Pt met with rehabilitation case coordinator yesterday - Cooperative with MoCA today. Pt scored a 27/30, demonstrating "normal" cognitive functioning. She did have several errors; however, immediately corrected many of them, including the areas of: alternating trail making, and fluency (correcting for proper nouns and repeats and still being able to name 15 appropriate words). Pt did have one incorrect subtraction in the serial 7's task, and struggled to repeat only one sentence with total accuracy in the language task. Pt was able to recall 3 of 5 words without cues in delayed recall task. - We did review that patient should not immediately return to driving after discharge until she is demonstrating stability of psychiatric symptoms - will need to review this with family as well. (2) Delusion of : 08/07 - Patient's reports are inconsistent. She reports giving to 5 babies recently, but then also told ED staff that she believes she is currently - ruled out - urine HCG is negative; patient admits to tubal ligation in 08/09--patient still believes had multiple infants last year but clearly states not now. Believes children are alive and in [place] 08/17 - Staff report patient has made comments about being with triplets, but also needing to get a hysterectomy (3) History of MRSA infection: first swab negative on admission, MNPR pending 2nd swab day 5 if still hospitalized. 08/11 - Repeat MRSA swab obtained today, results are positive - Maintain MNPR at this time (4) Wheezing on auscultation: repeat CBC, CXR, Mucinex prn, ventolin inhaler q4 hr WA. (5) TSH elevation: will need repeat as outpatient within 6 weeks via primary care Risk Factors Assessment Male: No : Yes Mental Health Diagnoses: Yes Previous Psychiatric Hospitalization: Yes Protective Factors Assessment Religion Beliefs: Yes : Yes Employed: No Stable Relationships: Yes Supportive Family: Yes Interval History Identifying Information MARIAMA TORRES is a 69-year-old F who currently lives in [place] with her . Pt only reports a history of depression though is familiar with the term "schizophrenia". She was admitted on 08/06/19 17:58 on a 201 voluntary commitment for delusions and reported inability to care for self according to . Chief Complaint "I did real well with the Geodon last night." Review of Systems Notes Constitutional: denied Cardiovascular: denied Respiratory: denied Gastrointestinal: denied Neurological: denied Psychiatric: denies symptoms other than stated above Total of at least 10 systems reviewed, pertinent positives as above and in HPI. Sleep Information Total Hours of Sleep: 6.5 Sleep Comments: pt on q-15 minute checks Meal Information Percent Meal Consumed - Breakfast: 100 Percent Meal Consumed - Lunch: 100 Percent Meal Consumed - Dinner: 100 Subjective Subjective Patient was seen & assessed and interval progress reviewed with nursing and social work. Staff reports the patient continues to demonstrate delusional thinking, though did unpack her belongings last evening after coming to the realization that she was not scheduled for discharge in the near future. Patient did meet with her rehabilitation case coordinator yesterday afternoon. Patient was seen today to assess progress since admission. She informs this provider that she "did real well on the Geodon" last evening. Current medication regimen was reviewed, to ensure patient's awareness that she is prescribed Invega and Depakote not Geodon. Patient states that she believes the medication was somewhat calming, and slept well last evening. Patient does state "I had a nice calming afternoon, and that was even before I took the medication." Patient states that she kept busy yesterday by attending group programming. She is also pleased as "I did not feel the disappointment last evening, you know, when you think you are leaving and find out that you are not." Patient states that she also kept busy by unpacking her belongings, finally realizing that she was not being discharged yesterday. Patient reports a positive meeting with her new rehabilitation case coordinator, and states "I believe that she can help with my kids, the ones I do have and may be the other ones to." This provider asked which "other ones" patient was referring to, and she responded "3 in [place]." Patient still believes that the babies are there, and is now claiming "they gave me one to take home, but I gave it back because I did not think it was mine. It was a lot bigger than the other babies, so it must have been born before mine were born." Patient remains focused on utilizing her rehabilitation case coordinator to track down these babies so she can reconnect with them. Patient does deny suicidal or homicidal ideation. She continues to deny auditory and visual hallucinations. Patient denies other needs or concerns today, and is agreeable with increasing her dose of valproic acid this evening. Physical Exam Psychiatric Orientation: alert, oriented x 3 and cooperative Apperance: appropriately dressed and + disheveled (malodorous, though not as severe as earlier in her stay) Eye Contact: good eye contact Motor Behavior: steady gait and station and no abnormal motor movements Speech: normal rate/rhythm/volume of speech Affect: + blunted affect Mood: no depressed mood ("I was not disappointed last night about not leaving", "I'm feeling good") Thought Process: + circumstantial thought process and + perseveration; + thought process not linear or logical Thought Content: + preoccupation and + delusions (continues to believe she has 3 babies in [place]) Suicidal Thoughts: denies suicidal thoughts Homicidal Thoughts: denies homicidal thoughts Hallucinations: no auditory hallucinations and no visual hallucinations Cognition: attention grossly intact and language grossly intact Insight: + impaired insight Judgement: + impaired judgement Vital Signs (Past 24 Hours) Last Vital Signs Temp 36.2 C L 08/18/19 07:00 Pulse 79 08/18/19 07:01 Resp 18 08/18/19 07:00 BP 128/81 08/18/19 07:01 Pulse Ox 97 08/09/19 11:34 Results & Data ([facility]) Current Inpatient Medications Current Inpatient Medications: Current Inpatient Medications Acetaminophen (Tylenol) 650 mg PO Q4H PRN PRN Reason: Headache or Minor Fever Stop: 09/05/19 17:57 Last Admin: 08/17/19 15:52 Dose: 650 mg Documented by: Al Hydrox/Mg Hydrox/Simethicone (Maalox) 30 ml PO Q4H PRN PRN Reason: GI Upset Stop: 09/05/19 17:57 Last Admin: 08/15/19 21:18 Dose: 30 ml Documented by: Albuterol (Ventolin Hfa) 2 puffs INH Q4HWA [facility] Stop: 09/08/19 11:59 Last Admin: 08/18/19 08:31 Dose: 2 puffs Documented by: Aspirin (Ecotrin Ectab) 81 mg PO [facility] Stop: 09/06/19 08:59 Last Admin: 08/18/19 08:32 Dose: 81 mg Documented by: Atorvastatin Calcium (Lipitor) 40 mg PO [facility] Stop: 09/06/19 08:59 Last Admin: 08/18/19 08:33 Dose: 40 mg Documented by: Bismuth Subsalicylate (Kaopectate) 15 ml PO PRN PRN PRN Reason: Loose Stool Stop: 09/05/19 17:57 Calcium Carbonate (Os-Jae 500) 1,250 mg PO [facility] Stop: 09/06/19 08:59 Last Admin: 08/18/19 08:33 Dose: 1,250 mg Documented by: Divalproex Sodium (Depakote Delay Release) 500 mg PO [facility] Stop: 09/17/19 21:59 Guaifenesin (Mucinex) 600 mg PO Q12 PRN PRN Reason: Cough Stop: 09/08/19 20:59 Last Admin: 08/09/19 10:22 Dose: 600 mg Documented by: Hydroxyzine HCl (Vistaril) 50 mg PO HSZ PRN PRN Reason: Insomnia Stop: 09/05/19 17:57 Hydroxyzine HCl (Vistaril) 25 mg PO Q4H PRN PRN Reason: Anxiety Stop: 09/05/19 17:57 Lisinopril (Zestril) 40 mg PO [facility] Stop: 09/06/19 08:59 Last Admin: 08/18/19 08:34 Dose: 40 mg Documented by: Magnesium Hydroxide (Milk Of Magnesia) 30 ml PO DAILY PRN PRN Reason: Constipation Stop: 09/05/19 17:57 Multivitamins (Multivitamin Tab) 1 tab PO [facility] Stop: 09/06/19 08:59 Last Admin: 08/18/19 08:33 Dose: 1 tab Documented by: Nadolol (Corgard) 80 mg PO QAM [facility] Stop: 09/06/19 08:59 Last Admin: 08/18/19 08:32 Dose: 80 mg Documented by: Paliperidone (Invega) 9 mg PO QAM [facility] Stop: 09/14/19 08:59 Last Admin: 08/18/19 08:32 Dose: 9 mg Documented by: Polyethylene Glycol (Miralax Powder Packet) 17 gm PO DAILY PRN PRN Reason: Constipation Stop: 09/05/19 17:59 Last Admin: 08/13/19 08:07 Dose: 17 gm Documented by: Katelynnat Multivit/[place]/Iron/Folic Ac ( Vitamin) 1 tab PO QAM [facility] Stop: 09/06/19 08:59 Last Admin: 08/18/19 08:34 Dose: 1 tab Documented by: Sodium Chloride ([place] Nasal) 1 - 2 sprays NA PRN PRN PRN Reason: Nasal Dryness/Congestion Stop: 09/05/19 17:57 Triamcinolone Acetonide (Kenalog 0.025%) 1 appln TOP BID PRN PRN Reason: SKIN IRRITATIONS Stop: 09/05/19 17:59 Last Admin: 08/16/19 07:50 Dose: 1 appln Documented by: Mental Health & Subst Abuse Tx Psychiatrist Name of Psychiatrist: Ranjana Price PA-C Psychiatrist's Date of Appointment with Psychiatrist: 08/14/19 Time of Appointment with Psychiatrist: 2:30pm Psychiatric Appointment Comment: [id number] [facility] [place] [address] Therapist Name of Therapist: Jenaro Academic Computing Director Name of Academic Computing Director: [facility] Phone Number for Academic Computing Director: [phone] Post Discharge Appointments Primary Care Physician Name Of Family Doctor: Dr. Quintero Primary Care Provider Appointment Comment: As needed Contact Information Discharge Discharge Address: [address] [place] [address], [place] [address]
[2019-08-18] MEDS: DIVALPROEX DELAY RELEASE 500 MG TAB PO SCH (21:02)
[2019-08-19] MEDS: ALBUTEROL HFA 8 GM INHALER INH SCH ×4 (09:06→21:00)
[2019-08-19] MEDS: nadoloL 40 MG TAB PO SCH (09:07)
[2019-08-19] MEDS: PALIPERIDONE 3 MG TABCR PO SCH (09:08)
[2019-08-19] MEDS: ASPIRIN 81 MG ECTAB PO SCH (09:08)
[2019-08-19] MEDS: ATORVASTATIN 40 MG TAB PO SCH (09:09)
[2019-08-19] MEDS: MULTIVITAMIN TAB PO SCH (09:10)
[2019-08-19] MEDS: CALCIUM CARBONATE 1250MG TAB PO SCH (09:10)
[2019-08-19] MEDS: lisinopriL 40 MG TAB PO SCH (09:10)
--- NOTE | 2019-08-19 13:14 | Psychiatric Progress Note ---
Date of Service August 19, 2019 Impression / Recommendations Impression 69-year-old female admitted voluntarily for inpatient psychiatric treatment on 08/06/2019 after presenting to the ED for mental health evaluation. Patient verbalized the belief that she gave recently, her story varies from 1 baby 1.5 years ago to as many as 5 babies as recently as 06/19/2019. Family reported she was not caring for her needs. Given history of numerous psychiatric hospitalizations, delusional thought process, history of mood symptoms, and current flight of ideas and looseness of associations we will proceed with a working diagnosis of schizoaffective disorder, bipolar type. Pt already had trials of aripiprazole and paliperidone, which were not effective to target delusional thought content and disorganization of thought process. EEG obtained during her stay to rule out temporal-lobe epilepsy or other possible neurologic process - no gross abnormalities noted. She was started on a trial of Depakote. We will also trial haloperidol in order to better target psychosis. [facility] c ompleted yesterday, with patient scoring a 27/30 - indicating that her symptoms are best explained by psychosis rather than cognitive deficits. Pt is stating she has been told to avoid specific staff and remains highly focused on discharge. She continues demonstrate a variety of delusional thoughts which would greatly affect her ability to care for herself outside of the inpatient setting. An additional family meeting was attempted today; which patient still remains unable to tolerate. As she continues to be delusional about either being or having recently given to young children, children visitors have been restricted on the unit at this time. Inpatient psychiatric treatment remains the most appropriate and least restrictive setting at this time, as patient remains delusional and continues to demonstrate a concerning inability to tolerate community re-entry. (1) Schizoaffective disorder, bipolar type: 08/07 - Admitted to a locked inpatient behavioral health unit, on q15 minute safety checks - Initiate aripiprazole 5mg qAM to target psychosis, with indication for depressive symptoms as well - risks, benefits, and potential side effects reviewed. Pt verbalized understanding and is agreeable - Will discontinue sertraline as patient reports nausea has prevented regular compliance; she has only been taking it every 4-5 days - Will require collateral information from and/or children regarding her psychiatric history - are recent admissions only list depression - Encourage participation in group and recreational therapies - Encourage family meeting to involve outpatient supports in safety planning - Arrange appropriate aftercare with referrals for a therapist and psychiatrist at discharge 08/08 --increase Abilify 7.5 mg today. Baseline AIMS appears to be 0. 2/2 --Abilify 10 mg daily (improving) 2 --Abilify 15 mg daily, hesitant to add lithium given TSH elevation (daughter reportedly did well on it in combo with Clozaril). 08/11 - Continue aripiprazole 15mg daily - consider need for further titration versus trial of an alternative agent as patient continues to be floridly psychotic with ongoing disorganization of thought and delusional thought content - Family meeting was attempted yesterday with patient's daughter and - patient was limited in her ability to tolerate the meeting - Continue to arrange aftercare 08/12 - Titrate aripiprazole to 20mg daily starting tomorrow morning - patient remains delusional with inability to participate in reality testing - Pt more focused on various physical complaints (headache, dizziness, parasites) - continue to monitor, brief neuro assessment completed without any gross abnormalities - Will need to schedule a repeat family meeting once patient is better able to tolerate - Coordinate care with outpatient providers - Fasting labs obtained on 08/08/2019 - fasting glucose and lipid panel with all values WNL 08/13 - Cross-taper from aripiprazole to paliperidone, as patient is not demonstrating significant improvement with aripiprazole trial - Pt remains preoccupied with numerous physical complaints - now believing she pulled teeth from her head and that she has a tapeworm - Continue to coordinate care with family; will require repeat family meeting once able to tolerate the interaction 08/14 - Continue cross-taper from aripiprazole to paliperidone. Pt received last dose of aripiprazole this morning, and will increase paliperidone to 9mg tomorrow morning 08/15 -Patient has completed Abilify to invega cross-taper. -Remains floridly psychotic with complex delusions and disorganized thought process. Continued psychiatric hospitalization remains necessary for ongoing treatment and provision of safety due to degree of psychosis 08/16 -Patient remains delusional with some flight of ideas. At times she seems a little self-aggrandizing and thoughts are certainly coming rapidly and she remains very busy minded. I wonder if she might benefit from an anticonvulsant retrial. Given self-report of some possible multimodal hallucinations and clinical history, I would like to check a bedside EEG to try to rule out something like temporal lobe epilepsy as possible contributing underlying etiology. Routine EEG not available over weekend and will be ordered for Saturday. -Primary team can consider further titration of invega in the next few days 08/17 - Continue paliperidone 9mg daily - Routine EEG completed this morning; "no focal abnormalities, potentially epileptogenic discharges, or abnormal slow activity was seen". Will begin trial of Depakote, starting with 250mg this evening - continue titration as tolerated - Pt remains delusional and is difficult to redirect at times, though she remains pleasant and continues to participate in group programming 08/18 - Continue paliperidone 9mg qAM - Depakote increased to 500mg for this evening. Pt continues to deny medication side effects - Pt continues to verbalize delusional thought content, believing her new major case detective will help her get her 3 babies back from [place] - Pt met with major case detective yesterday - Cooperative with [facility] today. Pt scored a 27/30, demonstrating "normal" cognitive functioning. She did have several errors; however, immediately corrected many of them, including the areas of: alternating trail making, and fluency (correcting for proper nouns and repeats and still being able to name 15 appropriate words). Pt did have one incorrect subtraction in the serial 7's task, and struggled to repeat only one sentence with total accuracy in the language task. Pt was able to recall 3 of 5 words without cues in delayed recall task. - We did review that patient should not immediately return to driving after discharge until she is demonstrating stability of psychiatric symptoms - will need to review this with family as well. 08/19 - Planning to switch from paliperidone to haloperidol, as patient continues to demonstrate delusional thought content that is not responding to trials of atypical antipsychotics - Will order one-time dose of 2.5mg and assess tolerability - could consider 2.5mg qAM and 5mg qHS and titrate from there - Repeat family meeting was attempted today with patient's , patient remains frustrated with him and his lack of support for the babies she believes they had - Pt continue to be unable to participate in any type of reality testing, making demands that our staff contact the facility where she believes she gave . She is becoming more paranoid of staff, believing she has been told not to speak with certain individuals. She remains at ongoing risk of further decompensation and potential harm to self or others based on the severity of these delusional beliefs and her disorganized thought process (2) Delusion of : 08/07 - Patient's reports are inconsistent. She reports giving to 5 babies recently, but then also told ED staff that she believes she is currently - ruled out - urine HCG is negative; patient admits to tubal ligation in 08/09--patient still believes had multiple infants last year but clearly states not now. Believes children are alive and in [place] 08/17 - Staff report patient has made comments about being with triplets, but also needing to get a hysterectomy (3) History of MRSA infection: first swab negative on admission, MNPR pending 2nd swab day 5 if still hospitalized. 08/11 - Repeat MRSA swab obtained today, results are positive - Maintain MNPR at this time (4) Wheezing on auscultation: repeat CBC, CXR, Mucinex prn, ventolin inhaler q4 hr [place]. (5) TSH elevation: will need repeat as outpatient within 6 weeks via primary care Risk Factors Assessment Male: No : Yes Mental Health Diagnoses: Yes Previous Psychiatric Hospitalization: Yes Protective Factors Assessment Jain Beliefs: Yes : Yes Employed: No Stable Relationships: Yes Supportive Family: Yes Interval History Identifying Information MARIAMA TORRES is a 69-year-old F who currently lives in [place] with her . Pt only reports a history of depression though is familiar with the term "schizophrenia". She was admitted on 08/06/19 17:58 on a 201 voluntary commitment for delusions and reported inability to care for self according to . Chief Complaint "I was thinking I made some headway, but obviously not the right headway." Review of Systems Notes Constitutional: denied Cardiovascular: denied Respiratory: denied Gastrointestinal: denied Neurological: denied Psychiatric: denies symptoms other than stated above Total of at least 10 systems reviewed, pertinent positives as above and in HPI. Sleep Information Total Hours of Sleep: 7.25 Sleep Comments: pt on q-15 minute checks Meal Information Percent Meal Consumed - Breakfast: 100 Percent Meal Consumed - Lunch: 100 Percent Meal Consumed - Dinner: 100 Subjective Subjective Patient was seen & assessed and interval progress reviewed with treatment team. Staff reports the patient continues to demonstrate delusional thought content, believing she has been told not to speak to the social and political studies professor or specific medical providers. Pt was seen today to assess progress since admission. She provided verbal consent to allow Cynthia Gonzalez PA-C to observe today encounter. Pt states that she is frustrated that staff has not yet "written to request information" on her babies in [place]. Pt states "I don't understand why people are trying to create this mystery mist around my head. It's like they would rather lie to me about it." Pt was asked how she would handle the possibility that the facility truly does not have any information on the of these children, to which she states "that's some crazy hallucination then." Pt then goes on to continue talking about the fact that she gave to three babies in 06/2018. She states, "I remember, because one fell out of me, I had to clean it off and put it back inside me. I knew they would terminate it otherwise, probably." This provider asked the patient's thoughts an the medical unlikelihood that someone of her age with a history of surgical procedures to prevent conception could have given . Pt responds by saying "even the [place] Asha gave , and she never even had sex evidently." Other delusional though content today includes being informed that "they contacted an estate attorney for me this morning" and believing that she is winning prizes during activity groups for winning games (items to assist with coping strategies had been given previously, i.e. stress ball). Pt requests a scope be completed on the medical floor, as she believes the skin on her neck is hyperpigmented and that this is directly related to "the mold in my throat." Pt was informed that we are interested in making medication adjustments, as it does not seem the paliperidone has been effective in clearing her thoughts are reducing confusion with events on the unit that have not truly happened. Haloperidol was suggested, and patient states "I've been on that before. Haldol makes me smart." She is unable to give the timeline of this medication trial, but believes it may be positive. Risks and benefits were reviewed and patient was agreeable with the medication adjustments recommended. She denies needs from staff aside from writing to receive information about her "babies." Physical Exam Psychiatric Orientation: alert and oriented to person Apperance: appropriately dressed and + disheveled (hair unkempt, though appears to have recently showered) Eye Contact: good eye contact Motor Behavior: steady gait and station and no abnormal motor movements Speech: normal rate/rhythm/volume of speech Affect: + blunted affect and + constricted affect Mood: + irritable mood ("I'm upset they haven't written to ask about my babies"); no depressed mood Thought Process: + tangential thought process, + flight of ideas and + looseness of associations; + thought process not linear or logical and + thought process not clear or coherent Thought Content: + preoccupation (with her "babies", with "prizes" for games) and + delusions Reporting some paranoia/confusion as she believes she is being told not to talk with certain staff about her treatment. Suicidal Thoughts: denies suicidal thoughts Hallucinations: no auditory hallucinations and no visual hallucinations Cognition: language grossly intact; + attention not intact Insight: + severely impaired insight Judgement: + severely impaired judgement Vital Signs (Past 24 Hours) Last Vital Signs Temp 36.6 C 08/19/19 06:00 Pulse 73 08/19/19 06:54 Resp 18 08/19/19 06:00 BP 138/84 08/19/19 06:54 Pulse Ox 97 08/09/19 11:34 Results & Data ([facility]) Current Inpatient Medications Current Inpatient Medications: Current Inpatient Medications Acetaminophen (Tylenol) 650 mg PO Q4H PRN PRN Reason: Headache or Minor Fever Stop: 09/05/19 17:57 Last Admin: 08/17/19 15:52 Dose: 650 mg Documented by: Al Hydrox/Mg Hydrox/Simethicone (Maalox) 30 ml PO Q4H PRN PRN Reason: GI Upset Stop: 09/05/19 17:57 Last Admin: 08/15/19 21:18 Dose: 30 ml Documented by: Albuterol (Ventolin Hfa) 2 puffs [facility] Stop: 09/08/19 11:59 Last Admin: 08/19/19 09:06 Dose: 2 puffs Documented by: Aspirin (Ecotrin Ectab) 81 mg PO [facility] Stop: 09/06/19 08:59 Last Admin: 08/19/19 09:08 Dose: 81 mg Documented by: Atorvastatin Calcium (Lipitor) 40 mg PO [facility] Stop: 09/06/19 08:59 Last Admin: 08/19/19 09:09 Dose: 40 mg Documented by: Bismuth Subsalicylate (Kaopectate) 15 ml PO PRN PRN PRN Reason: Loose Stool Stop: 09/05/19 17:57 Calcium Carbonate (Os-Jae 500) 1,250 mg PO [facility] Stop: 09/06/19 08:59 Last Admin: 08/19/19 09:10 Dose: 1,250 mg Documented by: Divalproex Sodium (Depakote Delay Release) 500 mg PO HS [facility] Stop: 09/17/19 21:59 Last Admin: 08/18/19 21:02 Dose: 500 mg Documented by: Guaifenesin (Mucinex) 600 mg PO Q12 PRN PRN Reason: Cough Stop: 09/08/19 20:59 Last Admin: 08/09/19 10:22 Dose: 600 mg Documented by: Hydroxyzine HCl (Vistaril) 50 mg PO HSZ PRN PRN Reason: Insomnia Stop: 09/05/19 17:57 Hydroxyzine HCl (Vistaril) 25 mg PO Q4H PRN PRN Reason: Anxiety Stop: 09/05/19 17:57 Lisinopril (Zestril) 40 mg PO [facility] Stop: 09/06/19 08:59 Last Admin: 08/19/19 09:10 Dose: 40 mg Documented by: Magnesium Hydroxide (Milk Of Magnesia) 30 ml PO DAILY PRN PRN Reason: Constipation Stop: 09/05/19 17:57 Multivitamins (Multivitamin Tab) 1 tab PO [facility] Stop: 09/06/19 08:59 Last Admin: 08/19/19 09:10 Dose: 1 tab Documented by: Nadolol (Corgard) 80 mg PO [facility] Stop: 09/06/19 08:59 Last Admin: 08/19/19 09:07 Dose: 80 mg Documented by: Paliperidone (Invega) 9 mg PO [facility] Stop: 09/14/19 08:59 Last Admin: 08/19/19 09:08 Dose: 9 mg Documented by: Polyethylene Glycol (Miralax Powder Packet) 17 gm PO DAILY PRN PRN Reason: Constipation Stop: 09/05/19 17:59 Last Admin: 08/13/19 08:07 Dose: 17 gm Documented by: Sodium Chloride ([place] Nasal) 1 - 2 sprays NA PRN PRN PRN Reason: Nasal Dryness/Congestion Stop: 09/05/19 17:57 Triamcinolone Acetonide (Kenalog 0.025%) 1 appln TOP BID PRN PRN Reason: SKIN IRRITATIONS Stop: 09/05/19 17:59 Last Admin: 08/16/19 07:50 Dose: 1 appln Documented by: Mental Health & Subst Abuse Tx Psychiatrist Name of Psychiatrist: Ranjana Price PA-C Psychiatrist's Date of Appointment with Psychiatrist: 08/14/19 Time of Appointment with Psychiatrist: 2:30pm Psychiatric Appointment Comment: [address] [facility] [place] [address] Therapist Name of Therapist: Jenaro Content Coordinator Name of Content Coordinator: [facility] Phone Number for Content Coordinator: [phone] Post Discharge Appointments Primary Care Physician Name Of Family Doctor: Dr. Quintero Primary Care Provider Appointment Comment: As needed Contact Information Discharge Discharge Address: [address] [place] [address], [place] [address]
[2019-08-19] MEDS ORDERED: haloperidoL 1 MG TAB PO ONE (13:45)
[2019-08-19] MEDS: DIVALPROEX DELAY RELEASE 500 MG TAB PO SCH (21:00)
[2019-08-19] MEDS: haloperidoL 5 MG TAB PO SCH (21:04)
[2019-08-20] MEDS: ASPIRIN 81 MG ECTAB PO SCH (07:54)
[2019-08-20] MEDS: nadoloL 40 MG TAB PO SCH (07:54)
[2019-08-20] MEDS: ALBUTEROL HFA 8 GM INHALER INH SCH ×4 (07:54→21:29)
[2019-08-20] MEDS: CALCIUM CARBONATE 1250MG TAB PO SCH (07:55)
[2019-08-20] MEDS: lisinopriL 40 MG TAB PO SCH (07:55)
[2019-08-20] MEDS: MULTIVITAMIN TAB PO SCH (07:55)
[2019-08-20] MEDS: ATORVASTATIN 40 MG TAB PO SCH (07:55)
[2019-08-20] MEDS: haloperidoL 5 MG TAB PO SCH ×2 (07:56→21:28)
[2019-08-20] MEDS: TRIAMCINOLONE ACET 0.025% CR 15 GM TUBE TOP PRN (07:57)
--- NOTE | 2019-08-20 13:41 | Psychiatric Progress Note ---
Date of Service August 20, 2019 Impression / Recommendations Impression 69-year-old female admitted voluntarily for inpatient psychiatric treatment on 08/06/2019 after presenting to the ED for mental health evaluation. Patient verbalized the belief that she gave recently, her story varies from 1 baby 1.5 years ago to as many as 5 babies as recently as 06/19/2019. Family reported she was not caring for her needs. Given history of numerous psychiatric hospitalizations, delusional thought process, history of mood symptoms, and current flight of ideas and looseness of associations we will proceed with a working diagnosis of schizoaffective disorder, bipolar type. Pt already had trials of aripiprazole and paliperidone, which were not effective to target delusional thought content and disorganization of thought process. EEG obtained during her stay to rule out temporal-lobe epilepsy or other possible neurologic process - no gross abnormalities noted. She was started on a trial of Depakote. We will also trial haloperidol in order to better target psychosis. [facility] c ompleted yesterday, with patient scoring a 27/30 - indicating that her symptoms are best explained by psychosis rather than cognitive deficits. Pt is stating she has been told to avoid specific staff and remains highly focused on discharge. She continues demonstrate a variety of delusional thoughts which would greatly affect her ability to care for herself outside of the inpatient setting. An additional family meeting was attempted today; which patient still remains unable to tolerate. As she continues to be delusional about either being or having recently given to young children, children visitors have been restricted on the unit at this time. Inpatient psychiatric treatment remains the most appropriate and least restrictive setting at this time, as patient remains delusional and continues to demonstrate a concerning inability to tolerate community re-entry. (1) Schizoaffective disorder, bipolar type: 08/07 - Admitted to a locked inpatient behavioral health unit, on q15 minute safety checks - Initiate aripiprazole 5mg qAM to target psychosis, with indication for depressive symptoms as well - risks, benefits, and potential side effects reviewed. Pt verbalized understanding and is agreeable - Will discontinue sertraline as patient reports nausea has prevented regular compliance; she has only been taking it every 4-5 days - Will require collateral information from and/or children regarding her psychiatric history - are recent admissions only list depression - Encourage participation in group and recreational therapies - Encourage family meeting to involve outpatient supports in safety planning - Arrange appropriate aftercare with referrals for a therapist and psychiatrist at discharge 08/08 --increase Abilify 7.5 mg today. Baseline AIMS appears to be 0. 2/2 --Abilify 10 mg daily (improving) 2 --Abilify 15 mg daily, hesitant to add lithium given TSH elevation (daughter reportedly did well on it in combo with Clozaril). 08/11 - Continue aripiprazole 15mg daily - consider need for further titration versus trial of an alternative agent as patient continues to be floridly psychotic with ongoing disorganization of thought and delusional thought content - Family meeting was attempted yesterday with patient's daughter and - patient was limited in her ability to tolerate the meeting - Continue to arrange aftercare 08/12 - Titrate aripiprazole to 20mg daily starting tomorrow morning - patient remains delusional with inability to participate in reality testing - Pt more focused on various physical complaints (headache, dizziness, parasites) - continue to monitor, brief neuro assessment completed without any gross abnormalities - Will need to schedule a repeat family meeting once patient is better able to tolerate - Coordinate care with outpatient providers - Fasting labs obtained on 08/08/2019 - fasting glucose and lipid panel with all values WNL 08/13 - Cross-taper from aripiprazole to paliperidone, as patient is not demonstrating significant improvement with aripiprazole trial - Pt remains preoccupied with numerous physical complaints - now believing she pulled teeth from her head and that she has a tapeworm - Continue to coordinate care with family; will require repeat family meeting once able to tolerate the interaction 08/14 - Continue cross-taper from aripiprazole to paliperidone. Pt received last dose of aripiprazole this morning, and will increase paliperidone to 9mg tomorrow morning 08/15 -Patient has completed Abilify to invega cross-taper. -Remains floridly psychotic with complex delusions and disorganized thought process. Continued psychiatric hospitalization remains necessary for ongoing treatment and provision of safety due to degree of psychosis 08/16 -Patient remains delusional with some flight of ideas. At times she seems a little self-aggrandizing and thoughts are certainly coming rapidly and she remains very busy minded. I wonder if she might benefit from an anticonvulsant retrial. Given self-report of some possible multimodal hallucinations and clinical history, I would like to check a bedside EEG to try to rule out something like temporal lobe epilepsy as possible contributing underlying etiology. Routine EEG not available over weekend and will be ordered for Saturday. -Primary team can consider further titration of invega in the next few days 08/17 - Continue paliperidone 9mg daily - Routine EEG completed this morning; "no focal abnormalities, potentially epileptogenic discharges, or abnormal slow activity was seen". Will begin trial of Depakote, starting with 250mg this evening - continue titration as tolerated - Pt remains delusional and is difficult to redirect at times, though she remains pleasant and continues to participate in group programming 08/18 - Continue paliperidone 9mg qAM - Depakote increased to 500mg for this evening. Pt continues to deny medication side effects - Pt continues to verbalize delusional thought content, believing her new manager case management will help her get her 3 babies back from [place] - Pt met with manager case management yesterday - Cooperative with [facility] today. Pt scored a 27/30, demonstrating "normal" cognitive functioning. She did have several errors; however, immediately corrected many of them, including the areas of: alternating trail making, and fluency (correcting for proper nouns and repeats and still being able to name 15 appropriate words). Pt did have one incorrect subtraction in the serial 7's task, and struggled to repeat only one sentence with total accuracy in the language task. Pt was able to recall 3 of 5 words without cues in delayed recall task. - We did review that patient should not immediately return to driving after discharge until she is demonstrating stability of psychiatric symptoms - will need to review this with family as well. 08/19 - Planning to switch from paliperidone to haloperidol, as patient continues to demonstrate delusional thought content that is not responding to trials of atypical antipsychotics - Will order one-time dose of 2.5mg and assess tolerability - could consider 2.5mg qAM and 5mg qHS and titrate from there - Repeat family meeting was attempted today with patient's , patient remains frustrated with him and his lack of support for the babies she believes they had - Pt continue to be unable to participate in any type of reality testing, making demands that our staff contact the facility where she believes she gave . She is becoming more paranoid of staff, believing she has been told not to speak with certain individuals. She remains at ongoing risk of further decompensation and potential harm to self or others based on the severity of these delusional beliefs and her disorganized thought process 08/20 - Continue haloperidol 2.5mg BID - while patient's delusions persist, and she will likely need a higher dosage of the medication, she has also demonstrated significantly increased fatigue today, likely correlated to recent medication change. Will plan to continue dose titrate as tolerated - Continue Depakote 500mg qHS - Pt scheduled to meet with her manager case management again today (2) Delusion of : 08/07 - Patient's reports are inconsistent. She reports giving to 5 babies recently, but then also told ED staff that she believes she is currently - ruled out - urine HCG is negative; patient admits to tubal ligation in 08/09--patient still believes had multiple infants last year but clearly states not now. Believes children are alive and in [place] 08/17 - Staff report patient has made comments about being with triplets, but also needing to get a hysterectomy (3) History of MRSA infection: first swab negative on admission, MNPR pending 2nd swab day 5 if still hospitalized. 08/11 - Repeat MRSA swab obtained today, results are positive - Maintain MNPR at this time (4) Wheezing on auscultation: repeat CBC, CXR, Mucinex prn, ventolin inhaler q4 hr [place]. (5) TSH elevation: will need repeat as outpatient within 6 weeks via primary care Risk Factors Assessment Male: No : Yes Mental Health Diagnoses: Yes Previous Psychiatric Hospitalization: Yes Protective Factors Assessment Catholic Beliefs: Yes : Yes Employed: No Stable Relationships: Yes Supportive Family: Yes Interval History Identifying Information MARIAMA TORRES is a 69-year-old F who currently lives in [place] with her . Pt only reports a history of depression though is familiar with the term "schizophrenia". She was admitted on 08/06/19 17:58 on a 201 voluntary commitment for delusions and reported inability to care for self according to . Chief Complaint "I'm starting to think that my thinks I got by another man." Review of Systems Notes Constitutional: reports mildly increased fatigue Cardiovascular: denied Respiratory: denied Gastrointestinal: denied Neurological: denied Psychiatric: denies symptoms other than stated above Total of at least 10 systems reviewed, pertinent positives as above and in HPI. Sleep Information Total Hours of Sleep: 7.5 Sleep Comments: pt on q-15 minute checks Meal Information Percent Meal Consumed - Breakfast: 100 Percent Meal Consumed - Lunch: 100 Percent Meal Consumed - Dinner: 100 Nutrition Comment: per meal record Subjective Subjective Patient was seen & assessed and interval progress reviewed with nursing and social work. Staff report the patient tolerated initial dose of haloperidol yesterday afternoon. She rated her mood a 10/10 and "happier than usual" yesterday. Pt was seen today to assess progress since admission. She provides verbal consent to allow Cynthia Gonzalez PA-C to observe today's encounter. Pt begins conversation by verbalizing concern that "I'm starting to think that my thinks I got by another man." Pt states that this assumption is based on a seemingly insignificant comment the patient's had made on the phone. We did discuss cognitive distortions and our tendencies to infer situations that may not be entirely true. Pt verbalized understanding of the topic discussed, but continues to states that she is "waiting to be given the answer" and trying not to infer. When asked what answer she is waiting for, she states "for the doctor to write for the information on my babies." Pt denies significant side effects related to initiation of haloperidol, but does admit to feeling mildly more fatigued today. She has been observed to be spending most of the day in bed. Pt denies other needs or concerns at this time. Physical Exam Psychiatric Orientation: alert and cooperative (polite and pleasant) Apperance: appropriately dressed, appropriately groomed (recently showered) and appeared stated age Eye Contact: good eye contact Motor Behavior: steady gait and station and no abnormal motor movements Speech: normal rate/rhythm/volume of speech Affect: + blunted affect and + constricted affect Mood: no depressed mood and no anxious mood Thought Process: + circumstantial thought process, + looseness of associations and + perseveration; + thought process not linear or logical Thought Content: + preoccupation and + delusions Suicidal Thoughts: denies suicidal thoughts Homicidal Thoughts: denies homicidal thoughts Hallucinations: no auditory hallucinations and no visual hallucinations Insight: + severely impaired insight Judgement: + severely impaired judgement Vital Signs (Past 24 Hours) Last Vital Signs Temp 36.8 C 08/20/19 06:00 Pulse 79 08/20/19 06:00 Resp 18 08/20/19 06:00 BP 128/82 08/20/19 06:00 Pulse Ox 97 08/09/19 11:34 Results & Data ([facility]) Current Inpatient Medications Current Inpatient Medications: Current Inpatient Medications Acetaminophen (Tylenol) 650 mg PO Q4H PRN PRN Reason: Headache or Minor Fever Stop: 09/05/19 17:57 Last Admin: 08/17/19 15:52 Dose: 650 mg Documented by: Al Hydrox/Mg Hydrox/Simethicone (Maalox) 30 ml PO Q4H PRN PRN Reason: GI Upset Stop: 09/05/19 17:57 Last Admin: 08/15/19 21:18 Dose: 30 ml Documented by: Albuterol (Ventolin Hfa) 2 puffs INH Q4HWA [facility] Stop: 09/08/19 11:59 Last Admin: 08/20/19 13:02 Dose: 2 puffs Documented by: Aspirin (Ecotrin Ectab) [facility] Stop: 09/06/19 08:59 Last Admin: 08/20/19 07:54 Dose: 81 mg Documented by: Atorvastatin Calcium (Lipitor) 40 [facility] Stop: 09/06/19 08:59 Last Admin: 08/20/19 07:55 Dose: 40 mg Documented by: Bismuth Subsalicylate (Kaopectate) 15 ml PO PRN PRN PRN Reason: Loose Stool Stop: 09/05/19 17:57 Calcium Carbonate (Os-Jae 500) 1,[address] [facility] Stop: 09/06/19 08:59 Last Admin: 08/20/19 07:55 Dose: 1,250 mg Documented by: Divalproex Sodium (Depakote Delay Release) 500 mg PO [facility] Stop: 09/17/19 21:59 Last Admin: 08/19/19 21:00 Dose: 500 mg Documented by: Guaifenesin (Mucinex) 600 mg PO Q12 PRN PRN Reason: Cough Stop: 09/08/19 20:59 Last Admin: 08/09/19 10:22 Dose: 600 mg Documented by: Haloperidol (Haldol) 2.5 mg PO BID [facility] Stop: 09/18/19 20:59 Last Admin: 08/20/19 07:56 Dose: 2.5 mg Documented by: Hydroxyzine HCl (Vistaril) 50 mg PO HSZ PRN PRN Reason: Insomnia Stop: 09/05/19 17:57 Hydroxyzine HCl (Vistaril) 25 mg PO Q4H PRN PRN Reason: Anxiety Stop: 09/05/19 17:57 Lisinopril (Zestril) [facility] Stop: 09/06/19 08:59 Last Admin: 08/20/19 07:55 Dose: 40 mg Documented by: Magnesium Hydroxide (Milk Of Magnesia) 30 ml PO DAILY PRN PRN Reason: Constipation Stop: 09/05/19 17:57 Multivitamins (Multivitamin Tab) [address] [facility] Stop: 09/06/19 08:59 Last Admin: 08/20/19 07:55 Dose: 1 tab Documented by: Nadolol (Corgard) [address] [facility] Stop: 09/06/19 08:59 Last Admin: 08/20/19 07:54 Dose: 80 mg Documented by: Polyethylene Glycol (Miralax Powder Packet) 17 gm PO DAILY PRN PRN Reason: Constipation Stop: 09/05/19 17:59 Last Admin: 08/13/19 08:07 Dose: 17 gm Documented by: Sodium Chloride (Cerulean Nasal) 1 - 2 sprays NA PRN PRN PRN Reason: Nasal Dryness/Congestion Stop: 09/05/19 17:57 Triamcinolone Acetonide (Kenalog 0.025%) 1 appln TOP BID PRN PRN Reason: SKIN IRRITATIONS Stop: 09/05/19 17:59 Last Admin: 08/20/19 07:57 Dose: 1 appln Documented by: Mental Health & Subst Abuse Tx Psychiatrist Name of Psychiatrist: Ranjana Price PA-C Psychiatrist's Date of Appointment with Psychiatrist: 08/14/19 Time of Appointment with Psychiatrist: 2:30pm Psychiatric Appointment Comment: [address] [facility], [place] [address] Therapist Name of Therapist: Denies Bi Analyst Name of Bi Analyst: [facility] Phone Number for Bi Analyst: [phone] Post Discharge Appointments Primary Care Physician Name Of Family Doctor: Dr. Quintero Primary Care Provider Appointment Comment: As needed Contact Information Discharge Discharge Address: [address], [place], [facility]
[2019-08-20] MEDS: DIVALPROEX DELAY RELEASE 500 MG TAB PO SCH (21:28)
[2019-08-21] MEDS: nadoloL 40 MG TAB PO SCH (08:28)
[2019-08-21] MEDS: ASPIRIN 81 MG ECTAB PO SCH (08:28)
[2019-08-21] MEDS: lisinopriL 40 MG TAB PO SCH (08:29)
[2019-08-21] MEDS: MULTIVITAMIN TAB PO SCH (08:29)
[2019-08-21] MEDS: ATORVASTATIN 40 MG TAB PO SCH (08:29)
[2019-08-21] MEDS: ALBUTEROL HFA 8 GM INHALER INH SCH ×4 (08:29→19:53)
[2019-08-21] MEDS: CALCIUM CARBONATE 1250MG TAB PO SCH (08:29)
[2019-08-21] MEDS: haloperidoL 5 MG TAB PO SCH ×2 (08:32→20:51)
--- NOTE | 2019-08-21 15:13 | Psychiatric Progress Note ---
Date of Service August 21, 2019 Impression / Recommendations Impression 69-year-old female admitted voluntarily for inpatient psychiatric treatment on 08/06/2019 after presenting to the ED for mental health evaluation. Patient verbalized the belief that she gave recently, her story varies from 1 baby 1.5 years ago to as many as 5 babies as recently as 06/19/2019. Family reported she was not caring for her needs. Given history of numerous psychiatric hospitalizations, delusional thought process, history of mood symptoms, and current flight of ideas and looseness of associations we will proceed with a working diagnosis of schizoaffective disorder, bipolar type. Pt already had trials of aripiprazole and paliperidone, which were not effective to target delusional thought content and disorganization of thought process. EEG obtained during her stay to rule out temporal-lobe epilepsy or other possible neurologic process - no gross abnormalities noted. The patient's condition seems to have improved fairly precipitously when she was placed on haloperidol 2.5 mg twice a day. She had also been placed on Depakote 500 mg at bedtime, but reported some excess sedation and our impression is that her favorable response seems to be primarily related to haloperidol. Acc ordingly, we discontinuing Depakote at this time, while increasing her dose of haloperidol to 5 mg twice a day at the same time, is noted that there is evidently a family history of favorable response to Depakote, and so we will monitor the patient's condition and restart Depakote as indicated. On testing, there is very mild cogwheeling and we will add benztropine 1 mg twice a day to the patient's medication regimen. (1) Schizoaffective disorder, bipolar type: 08/07 - Admitted to a locked inpatient behavioral health unit, on q15 minute safety checks - Initiate aripiprazole 5mg qAM to target psychosis, with indication for depressive symptoms as well - risks, benefits, and potential side effects reviewed. Pt verbalized understanding and is agreeable - Will discontinue sertraline as patient reports nausea has prevented regular compliance; she has only been taking it every 4-5 days - Will require collateral information from and/or children regarding her psychiatric history - are recent admissions only list depression - Encourage participation in group and recreational therapies - Encourage family meeting to involve outpatient supports in safety planning - Arrange appropriate aftercare with referrals for a therapist and psychiatrist at discharge 08/08 --increase Abilify 7.5 mg today. Baseline AIMS appears to be 0. 08/09 --Abilify 10 mg daily (improving) 08/10 --Abilify 15 mg daily, hesitant to add lithium given TSH elevation (daughter reportedly did well on it in combo with Clozaril). 08/11 - Continue aripiprazole 15mg daily - consider need for further titration versus trial of an alternative agent as patient continues to be floridly psychotic with ongoing disorganization of thought and delusional thought content - Family meeting was attempted yesterday with patient's daughter and - patient was limited in her ability to tolerate the meeting - Continue to arrange aftercare 08/12 - Titrate aripiprazole to 20mg daily starting tomorrow morning - patient remains delusional with inability to participate in reality testing - Pt more focused on various physical complaints (headache, dizziness, parasites) - continue to monitor, brief neuro assessment completed without any gross abnormalities - Will need to schedule a repeat family meeting once patient is better able to tolerate - Coordinate care with outpatient providers - Fasting labs obtained on 08/08/2019 - fasting glucose and lipid panel with all values WNL 08/13 - Cross-taper from aripiprazole to paliperidone, as patient is not demonstrating significant improvement with aripiprazole trial - Pt remains preoccupied with numerous physical complaints - now believing she pulled teeth from her head and that she has a tapeworm - Continue to coordinate care with family; will require repeat family meeting once able to tolerate the interaction 08/14 - Continue cross-taper from aripiprazole to paliperidone. Pt received last dose of aripiprazole this morning, and will increase paliperidone to 9mg tomorrow morning 08/15 -Patient has completed Abilify to invega cross-taper. -Remains floridly psychotic with complex delusions and disorganized thought process. Continued psychiatric hospitalization remains necessary for ongoing treatment and provision of safety due to degree of psychosis 08/16 -Patient remains delusional with some flight of ideas. At times she seems a little self-aggrandizing and thoughts are certainly coming rapidly and she remains very busy minded. I wonder if she might benefit from an anticonvulsant retrial. Given self-report of some possible multimodal hallucinations and clinical history, I would like to check a bedside EEG to try to rule out something like temporal lobe epilepsy as possible contributing underlying etiology. Routine EEG not available over weekend and will be ordered for Saturday. -Primary team can consider further titration of invega in the next few days 08/17 - Continue paliperidone 9mg daily - Routine EEG completed this morning; "no focal abnormalities, potentially epileptogenic discharges, or abnormal slow activity was seen". Will begin trial of Depakote, starting with 250mg this evening - continue titration as tolerated - Pt remains delusional and is difficult to redirect at times, though she remains pleasant and continues to participate in group programming 08/18 - Continue paliperidone 9mg qAM - Depakote increased to 500mg for this evening. Pt continues to deny medication side effects - Pt continues to verbalize delusional thought content, believing her new case managers will help her get her 3 babies back from [place] - Pt met with case managers yesterday - Cooperative with [facility] today. Pt scored a 27/30, demonstrating "normal" cognitive functioning. She did have several errors; however, immediately corrected many of them, including the areas of: alternating trail making, and fluency (correcting for proper nouns and repeats and still being able to name 15 appropriate words). Pt did have one incorrect subtraction in the serial 7's task, and struggled to repeat only one sentence with total accuracy in the language task. Pt was able to recall 3 of 5 words without cues in delayed recall task. - We did review that patient should not immediately return to driving after discharge until she is demonstrating stability of psychiatric symptoms - will need to review this with family as well. 08/19 - Planning to switch from paliperidone to haloperidol, as patient continues to demonstrate delusional thought content that is not responding to trials of atypical antipsychotics - Will order one-time dose of 2.5mg and assess tolerability - could consider 2.5mg qAM and 5mg qHS and titrate from there - Repeat family meeting was attempted today with patient's , patient remains frustrated with him and his lack of support for the babies she believes they had - Pt continue to be unable to participate in any type of reality testing, making demands that our staff contact the facility where she believes she gave . She is becoming more paranoid of staff, believing she has been told not to speak with certain individuals. She remains at ongoing risk of further decompensation and potential harm to self or others based on the severity of these delusional beliefs and her disorganized thought process 08/20 - Continue haloperidol 2.5mg BID - while patient's delusions persist, and she will likely need a higher dosage of the medication, she has also demonstrated significantly increased fatigue today, likely correlated to recent medication change. Will plan to continue dose titrate as tolerated - Continue Depakote 500mg qHS - Pt scheduled to meet with her case managers again today 08/21 -The patient's response to haloperidol was fairly quick and impressive. She had been started on Depakote on 08/17/2019, and the dose was titrated to 500 mg at bedtime. She complains of some excess sedation that seems to be related to Depakote and given her evident response to haloperidol we will discontinue Depakote at this time and plan to restart it if indicated in the future. -Given patient's favorable response to haloperidol we will increase the dose of haloperidol from 2.5 mg twice a day to 5 mg twice a day. -Mild cogwheeling is noted on examination today. We will start benztropine 1 mg twice a day for EPS. (2) Delusion of : 08/07 - Patient's reports are inconsistent. She reports giving to 5 babies recently, but then also told ED staff that she believes she is currently - ruled out - urine HCG is negative; patient admits to tubal ligation in 08/09--patient still believes had multiple infants last year but clearly states not now. Believes children are alive and in [place] 08/17 - Staff report patient has made comments about being with triplets, but also needing to get a hysterectomy 08/21 -The patient spontaneously states today that she realizes that 1 of the reason she is in the hospital was that she had been claiming to be , and she notes that she now realizes that this is not possible given her age (69 years old). -She did make several statements today which, 1 of which may be considered delusional without collateral information. Specifically, she claimed that her brother has "MRSA in his foot" and became angry at her and deliberately rubbed his infected foot on her carpet. The patient also said that she had been "wondering" if doctors would ever do anything such as place a "titanium coat clip and hanger attacher" in someone's footbut then she spontaneously said that she realized that this is not something that would actually happen. (3) History of MRSA infection: first swab negative on admission, MNPR pending 2nd swab day 5 if still hospitalized. / - Repeat MRSA swab obtained today, results are positive - Maintain MNPR at this time (4) Wheezing on auscultation: repeat CBC, CXR, Mucinex prn, ventolin inhaler q4 hr WA. (5) TSH elevation: will need repeat as outpatient within 6 weeks via primary care Risk Factors Assessment Male: No : Yes Mental Health Diagnoses: Yes Previous Psychiatric Hospitalization: Yes Protective Factors Assessment Zoroastrian Beliefs: Yes : Yes Employed: No Stable Relationships: Yes Supportive Family: Yes Interval History Identifying Information MARIAMA TORRES is a 69-year-old F who currently lives in [place] with her . Pt only reports a history of depression though is familiar with the term "schizophrenia". She was admitted on 08/06/19 17:58 on a 201 voluntary commitment for delusions and reported inability to care for self according to . Chief Complaint " They say that I was claiming to be . No 69-year-old woman is .". Review of Systems Sleep Information Total Hours of Sleep: 7.75 Sleep Comments: pt on q-15 minute checks Meal Information Percent Meal Consumed - Breakfast: 100 Percent Meal Consumed - Lunch: 100 Percent Meal Consumed - Dinner: 75 Nutrition Comment: per meal record Subjective Subjective Patient was seen & assessed and interval progress reviewed with treatment team . I met individually with the patient in order to assess her current mental status, evaluate her response to treatment, address issues and concerns that might arise, and coordinate any necessary changes in her treatment regimen with the patient. The patient began by telling me that she is feeling better with Haldol. Specifically, she notes that she feels that her thinking is more clear and that she is not as "fretful." She does, however, report that she feels some excess sedation, particularly in the morning. As noted above, the patient tells me that her understanding of why she was in the hospital, and why she is remained in the hospital is that she had been claiming to be . She clearly states, "that was kind of crazy. I am 69 years old. 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 She said she is saw the doll, got mixed up, and thought that it was a real babyeven though she now knows that it was only a dull. The patient goes on to tell me that her brother had MRSA in his foot and got angry at her and deliberately rubbed his infected foot on her carpet. She also mentions in passing that she is wondering if the doctor might not have placed a "titanium coat clip and hanger attacher" in her brother. However, when I replied, "what do you think?" And she said, "no. No doctor would do something like that. I do not know why I said that." Physical Exam Psychiatric Orientation: alert, oriented x 3 and cooperative Apperance: appropriately dressed, appropriately groomed and appeared stated age Eye Contact: good eye contact Motor Behavior: + psychomotor retardation Speech: normal rate/rhythm/volume of speech Affect: + constricted affect "Happy mood. I feel pretty good." Thought Process: goal directed thought process (However, times the patient is somewhat tangential.) Thought Content: reality based without delusions It is not clear if the patient's report that her brother deliberately rubbed his infected foot on her carpet (see above) is based in reality. Also, the patient suggested that she may believe that a doctor had deliberately implanted a "coat clip and hanger attacher" in her brothers foot. However, she disavowed what has been her primary delusion; i.e., that she is or had been and gave . She also spontaneously said that she realized that no doctor would actually put a coat clip and hanger attacher in somebody's foot. Suicidal Thoughts: denies suicidal thoughts Homicidal Thoughts: denies homicidal thoughts Hallucinations: no auditory hallucinations Cognition: recent memory grossly intact, remote memory grossly intact, attention grossly intact and language grossly intact Estimated Intelligence: + above average estimated intelligence Insight: + limited insight Judgement: + limited judgement Vital Signs (Past 24 Hours) Last Vital Signs Temp 36.3 C L 08/21/19 06:52 Pulse 72 08/21/19 06:52 Resp 18 08/21/19 06:52 BP 148/83 H 08/21/19 06:52 Pulse Ox 97 08/09/19 11:34 Results & Data ([facility]) Current Inpatient Medications Current Inpatient Medications: Current Inpatient Medications Acetaminophen (Tylenol) 650 mg PO Q4H PRN PRN Reason: Headache or Minor Fever Stop: 09/05/19 17:57 Last Admin: 08/17/19 15:52 Dose: 650 mg Documented by: Al Hydrox/Mg Hydrox/Simethicone (Maalox) 30 ml PO Q4H PRN PRN Reason: GI Upset Stop: 09/05/19 17:57 Last Admin: 08/15/19 21:18 Dose: 30 ml Documented by: [facility]buterol (Ventolin Hfa) [id number] Stop: 09/08/19 11:59 Last Admin: 08/21/19 12:42 Dose: 2 puffs Documented by: Aspirin (Ecotrin Ectab) [facility]: 09/06/19 08:59 Last Admin: 08/21/19 08:28 Dose: 81 mg Documented by: Atorvastatin Calcium (Lipitor) 40 [facility] [place] Stop: 09/06/19 08:59 Last Admin: 08/21/19 08:29 Dose: 40 mg Documented by: Bismuth Subsalicylate (Kaopectate) 15 ml PO PRN PRN PRN Reason: Loose Stool Stop: 09/05/19 17:57 Calcium Carbonate (Os-Jae 500) 1,250 mg PO [facility] Stop: 09/06/19 08:59 Last Admin: 08/21/19 08:29 Dose: 1,250 mg Documented by: Guaifenesin (Mucinex) 600 mg PO Q12 PRN PRN Reason: Cough Stop: 09/08/19 20:59 Last Admin: 08/09/19 10:22 Dose: 600 mg Documented by: Haloperidol (Haldol) 5 mg PO BID [facility] Stop: 09/20/19 20:59 Hydroxyzine HCl (Vistaril) 50 mg PO HSZ PRN PRN Reason: Insomnia Stop: 09/05/19 17:57 Hydroxyzine HCl (Vistaril) 25 mg PO Q4H PRN PRN Reason: Anxiety Stop: 09/05/19 17:57 Lisinopril (Zestril) 40 mg PO QAM [facility] Stop: 09/06/19 08:59 Last Admin: 08/21/19 08:29 Dose: 40 mg Documented by: Magnesium Hydroxide (Milk Of Magnesia) 30 ml PO DAILY PRN PRN Reason: Constipation Stop: 09/05/19 17:57 Multivitamins (Multivitamin Tab) 1 tab PO QAM GARY Stop: 09/06/19 08:59 Last Admin: 08/21/19 08:29 Dose: 1 tab Documented by: Nadolol (Corgard) 80 mg PO QAM [facility] Stop: 09/06/19 08:59 Last Admin: 08/21/19 08:28 Dose: 80 mg Documented by: Polyethylene Glycol (Miralax Powder Packet) 17 gm PO DAILY PRN PRN Reason: Constipation Stop: 09/05/19 17:59 Last Admin: 08/13/19 08:07 Dose: 17 gm Documented by: Sodium Chloride ([place] Nasal) 1 - 2 sprays NA PRN PRN PRN Reason: Nasal Dryness/Congestion Stop: 09/05/19 17:57 Triamcinolone Acetonide (Kenalog 0.025%) 1 appln TOP BID PRN PRN Reason: SKIN IRRITATIONS Stop: 09/05/19 17:59 Last Admin: 08/20/19 07:57 Dose: 1 appln Documented by: Mental Health & Subst Abuse Tx Psychiatrist Name of Psychiatrist: Ranjana Price PA-C Psychiatrist's Date of Appointment with Psychiatrist: 08/14/19 Time of Appointment with Psychiatrist: 2:30pm Psychiatric Appointment Comment: [id number] [place] [address] Therapist Name of Therapist: Jenaro Commercial Green Building Designer Name of Commercial Green Building Designer: [facility] Phone Number for Commercial Green Building Designer: [phone] Post Discharge Appointments Primary Care Physician Name Of Family Doctor: Dr. Quintero Primary Care Provider Appointment Comment: As needed Contact Information Discharge Discharge Address: [address] [place] [id number]
[2019-08-21] MEDS: ACETAMINOPHEN 325 MG TAB PO PRN (18:26)
[2019-08-21] MEDS: BENZTROPINE MESYLATE 0.5 MG TAB PO SCH (20:51)
[2019-08-22] MEDS: ALBUTEROL HFA 8 GM INHALER INH SCH ×4 (09:00→20:47)
[2019-08-22] MEDS: BENZTROPINE MESYLATE 0.5 MG TAB PO SCH ×2 (09:00→20:48)
[2019-08-22] MEDS: haloperidoL 5 MG TAB PO SCH ×2 (09:01→20:48)
[2019-08-22] MEDS: ASPIRIN 81 MG ECTAB PO SCH (09:01)
[2019-08-22] MEDS: nadoloL 40 MG TAB PO SCH (09:01)
[2019-08-22] MEDS: MULTIVITAMIN TAB PO SCH (09:02)
[2019-08-22] MEDS: CALCIUM CARBONATE 1250MG TAB PO SCH (09:02)
[2019-08-22] MEDS: ATORVASTATIN 40 MG TAB PO SCH (09:02)
[2019-08-22] MEDS: lisinopriL 40 MG TAB PO SCH (09:03)
--- NOTE | 2019-08-22 19:14 | Psychiatric Progress Note ---
Date of Service August 22, 2019 Impression / Recommendations Impression 69-year-old female admitted voluntarily for inpatient psychiatric treatment on 08/06/2019 after presenting to the ED for mental health evaluation. Patient verbalized the belief that she gave recently, her story varies from 1 baby 1.5 years ago to as many as 5 babies as recently as 06/19/2019. Family reported she was not caring for her needs. Given history of numerous psychiatric hospitalizations, delusional thought process, history of mood symptoms, and current flight of ideas and looseness of associations we will proceed with a working diagnosis of schizoaffective disorder, bipolar type. Pt already had trials of aripiprazole and paliperidone, which were not effective to target delusional thought content and disorganization of thought process. EEG obtained during her stay to rule out temporal-lobe epilepsy or other possible neurologic process - no gross abnormalities noted. The patient's condition seems to have improved fairly precipitously when she was placed on haloperidol 2.5 mg twice a day. She had also been placed on Depakote 500 mg at bedtime, but reported some excess sedation and our impression is that her favorable response seems to be primarily related to haloperidol. Acc ordingly, we discontinuing Depakote at this time, while increasing her dose of haloperidol to 5 mg twice a day at the same time, is noted that there is evidently a family history of favorable response to mood stablizers, and so we will monitor the patient's condition and restart Depakote as indicated. On testing, there is very mild cogwheeling and we added benztropine 0.5 mg twice a day to the patient's medication regimen. (1) Schizoaffective disorder, bipolar type: 08/07 - Admitted to a locked inpatient behavioral health unit, on q15 minute safety checks - Initiate aripiprazole 5mg qAM to target psychosis, with indication for depressive symptoms as well - risks, benefits, and potential side effects reviewed. Pt verbalized understanding and is agreeable - Will discontinue sertraline as patient reports nausea has prevented regular compliance; she has only been taking it every 4-5 days - Will require collateral information from and/or children regarding her psychiatric history - are recent admissions only list depression - Encourage participation in group and recreational therapies - Encourage family meeting to involve outpatient supports in safety planning - Arrange appropriate aftercare with referrals for a therapist and psychiatrist at discharge 08/08 --increase Abilify 7.5 mg today. Baseline AIMS appears to be 0. 2/2 --Abilify 10 mg daily (improving) 08/10 --Abilify 15 mg daily, hesitant to add lithium given TSH elevation (daughter reportedly did well on it in combo with Clozaril). 08/11 - Continue aripiprazole 15mg daily - consider need for further titration versus trial of an alternative agent as patient continues to be floridly psychotic with ongoing disorganization of thought and delusional thought content - Family meeting was attempted yesterday with patient's daughter and - patient was limited in her ability to tolerate the meeting - Continue to arrange aftercare 08/12 - Titrate aripiprazole to 20mg daily starting tomorrow morning - patient remains delusional with inability to participate in reality testing - Pt more focused on various physical complaints (headache, dizziness, parasites) - continue to monitor, brief neuro assessment completed without any gross abnormalities - Will need to schedule a repeat family meeting once patient is better able to tolerate - Coordinate care with outpatient providers - Fasting labs obtained on 08/08/2019 - fasting glucose and lipid panel with all values WNL 08/13 - Cross-taper from aripiprazole to paliperidone, as patient is not demonstrat ing significant improvement with aripiprazole trial - Pt remains preoccupied with numerous physical complaints - now believing she pulled teeth from her head and that she has a tapeworm - Continue to coordinate care with family; will require repeat family meeting once able to tolerate the interaction 08/14 - Continue cross-taper from aripiprazole to paliperidone. Pt received last dose of aripiprazole this morning, and will increase paliperidone to 9mg tomorrow morning 08/15 -Patient has completed Abilify to invega cross-taper. -Remains floridly psychotic with complex delusions and disorganized thought process. Continued psychiatric hospitalization remains necessary for ongoing treatment and provision of safety due to degree of psychosis 08/16 -Patient remains delusional with some flight of ideas. At times she seems a little self-aggrandizing and thoughts are certainly coming rapidly and she remains very busy minded. I wonder if she might benefit from an anticonvulsant retrial. Given self-report of some possible multimodal hallucinations and clinical history, I would like to check a bedside EEG to try to rule out something like temporal lobe epilepsy as possible contributing underlying etiology. Routine EEG not available over weekend and will be ordered for Saturday. -Primary team can consider further titration of invega in the next few days 08/17 - Continue paliperidone 9mg daily - Routine EEG completed this morning; "no focal abnormalities, potentially epileptogenic discharges, or abnormal slow activity was seen". Will begin trial of Depakote, starting with 250mg this evening - continue titration as tolerated - Pt remains delusional and is difficult to redirect at times, though she remains pleasant and continues to participate in group programming 08/18 - Continue paliperidone 9mg qAM - Depakote increased to 500mg for this evening. Pt continues to deny medication side effects - Pt continues to verbalize delusional thought content, believing her new ca se door manager will help her get her 3 babies back from [place] - Pt met with correctional counselor/case manager yesterday - Cooperative with [facility] today. Pt scored a 27/30, demonstrating "normal" cognitive functioning. She did have several errors; however, immediately corrected many of them, including the areas of: alternating trail making, and fluency (correcting for proper nouns and repeats and still being able to name 15 appropriate words). Pt did have one incorrect subtraction in the serial 7's task, and struggled to repeat only one sentence with total accuracy in the language task. Pt was able to recall 3 of 5 words without cues in delayed recall task. - We did review that patient should not immediately return to driving after discharge until she is demonstrating stability of psychiatric symptoms - will need to review this with family as well. 08/19 - Planning to switch from paliperidone to haloperidol, as patient continues to demonstrate delusional thought content that is not responding to trials of atypical antipsychotics - Will order one-time dose of 2.5mg and assess tolerability - could consider 2.5mg qAM and 5mg qHS and titrate from there - Repeat family meeting was attempted today with patient's , patient remains frustrated with him and his lack of support for the babies she believes they had - Pt continue to be unable to participate in any type of reality testing, making demands that our staff contact the facility where she believes she gave . She is becoming more paranoid of staff, believing she has been told not to speak with certain individuals. She remains at ongoing risk of further decompensation and potential harm to self or others based on the severity of these delusional beliefs and her disorganized thought process 08/20 - Continue haloperidol 2.5mg BID - while patient's delusions persist, and she will likely need a higher dosage of the medication, she has also demonstrated significantly increased fatigue today, likely correlated to recent medication change. Will plan to continue dose titrate as tolerated - Continue Depakote 500mg qHS - Pt scheduled to meet with her correctional counselor/case manager again today 08/21 -The patient's response to haloperidol was fairly quick and impressive. She had been started on Depakote on 08/17/2019, and the dose was titrated to 500 mg at bedtime. She complains of some excess sedation that seems to be related to Depakote and given her evident response to haloperidol we will discontinue Depakote at this time and plan to restart it if indicated in the future. -Given patient's favorable response to haloperidol we will increase the dose of haloperidol from 2.5 mg twice a day to 5 mg twice a day. -Mild cogwheeling is noted on examination today. We will start benztropine 0.5 mg twice a day for EPS. 08/22 maintained treatment plan unchanged exploring for response to medications and s/e (2) Delusion of : 08/07 - Patient's reports are inconsistent. She reports giving to 5 babies recently, but then also told ED staff that she believes she is currently - ruled out - urine HCG is negative; patient admits to tubal ligation in 08/09--patient still believes had multiple infants last year but clearly states not now. Believes children are alive and in [place] 08/17 - Staff report patient has made comments about being with triplets, but also needing to get a hysterectomy 08/21 -The patient spontaneously states today that she realizes that 1 of the reason she is in the hospital was that she had been claiming to be , and she notes that she now realizes that this is not possible given her age (69 years old). -She did make several statements today which, 1 of which may be considered delusional without collateral information. Specifically, she claimed that her brother has "MRSA in his foot" and became angry at her and deliberately rubbed his infected foot on her carpet. The patient also said that she had been "wondering" if doctors would ever do anything such as place a "titanium coat mold insert changer" in someone's footbut then she spontaneously said that she realized that this is not something that would actually happen. (3) History of MRSA infection: first swab negative on admission, MNPR pending 2nd swab day 5 if still hospitalized. 2/4 - Repeat MRSA swab obtained today, results are positive - Maintain MNPR at this time (4) Wheezing on auscultation: repeat CBC, CXR, Mucinex prn, ventolin inhaler q4 hr [place]. (5) TSH elevation: will need repeat as outpatient within 6 weeks via primary care Risk Factors Assessment Male: No : Yes Mental Health Diagnoses: Yes Previous Psychiatric Hospitalization: Yes Protective Factors Assessment Cheondoism Beliefs: Yes : Yes Employed: No Stable Relationships: Yes Supportive Family: Yes Interval History Identifying Information MARIAMA TORRES is a 69-year-old F who currently lives in [place] with her . Pt only reports a history of depression though is familiar with the term "schizophrenia". She was admitted on 08/06/19 17:58 on a 201 voluntary commitment for delusions and reported inability to care for self according to . Chief Complaint "[]". Review of Systems Sleep Information Total Hours of Sleep: 6.75 Sleep Comments: pt on q-15 minute checks Meal Information Percent Meal Consumed - Breakfast: 50 Percent Meal Consumed - Lunch: 80 Percent Meal Consumed - Dinner: 100 Nutrition Comment: per meal record Subjective Subjective Patient was seen & assessed and interval progress reviewed with nursing and social work. pt endorsed feeling head resolved today, pt denied involvement movements, endorsed tolerating haldol and cogentin well and seeking to continue the medication. she reports that she has been told that she could not have been recently or given recently and thus her previous thoughts of that might not be true. She is accepting of this and reports that her experiences that had her believing such thoughts seem more distant and less real and thus able to let go of believing them. She reports being in her bed at time of newspaper writer finding her for the assemsnt ad feeling tired fomr her attending groups and doing things on the unit but that she understands Physical Exam Psychiatric Orientation: alert, oriented x 3, oriented to person and cooperative Apperance: appropriately dressed, appropriately groomed, + disheveled (hair unkempt, though appears to have recently showered) and appeared stated age Eye Contact: + fair eye contact Motor Behavior: steady gait and station, no abnormal motor movements and + psychomotor retardation; no psychomotor agitation and n EPS Speech: normal rate/rhythm/volume of speech; no pressured speech (But is overproductive and rapid) Affect: + blunted affect; no labile affect Mood: + dysphoric mood; no depressed mood and no anxious mood Thought Process: + tangential thought process Thought Content: + preoccupation, + paranoid (believes staff is mistreating her and other patients), reality based without delusions and + delusions Suicidal Thoughts: denies suicidal thoughts Homicidal Thoughts: denies homicidal thoughts Hallucinations: no auditory hallucinations, no visual hallucinations and no tactile hallucinations Cognition: recent memory grossly intact, remote memory grossly intact, attention grossly intact and language grossly intact Estimated Intelligence: consistent with education level Insight: + fair insight Judgement: + fair judgement Vital Signs (Past 24 Hours) Last Vital Signs Temp 36.5 C 08/22/19 06:48 Pulse 66 08/22/19 06:49 Resp 18 08/22/19 06:48 BP 134/81 08/22/19 06:49 Pulse Ox 97 08/09/19 11:34 Results & Data ([facility]) Current Inpatient Medications Current Inpatient Medications: Current Inpatient Medications Acetaminophen (Tylenol) 650 mg PO Q4H PRN PRN Reason: Headache or Minor Fever Stop: 09/05/19 17:57 Last Admin: 08/21/19 18:26 Dose: 650 mg Documented by: Al Hydrox/Mg Hydrox/Simethicone (Maalox) 30 ml PO Q4H PRN PRN Reason: GI Upset Stop: 09/05/19 17:57 Last Admin: 08/15/19 21:18 Dose: 30 ml Documented by: Albuterol (Ventolin Hfa) 2 puffs INH Q4HWA [facility] Stop: 09/08/19 11:59 Last Admin: 08/22/19 16:13 Dose: 2 puffs Documented by: Aspirin (Ecotrin Ectab) [facility] [place] Stop: 09/06/19 08:59 Last Admin: 08/22/19 09:01 Dose: 81 mg Documented by: Atorvastatin Calcium (Lipitor) 40 mg [facility] [place] Stop: 09/06/19 08:59 Last Admin: 08/22/19 09:02 Dose: 40 mg Documented by: Benztropine Mesylate (Cogentin) 0.5 mg PO BID [facility] Stop: 09/20/19 20:59 Last Admin: 08/22/19 09:00 Dose: 0.5 mg Documented by: Bismuth Subsalicylate (Kaopectate) 15 ml PO PRN PRN PRN Reason: Loose Stool Stop: 09/05/19 17:57 Calcium Carbonate (Os-Jae 500) 1,250 mg PO [facility] Stop: 09/06/19 08:59 Last Admin: 08/22/19 09:02 Dose: 1,250 mg Documented by: Guaifenesin (Mucinex) 600 mg PO Q12 PRN PRN Reason: Cough Stop: 09/08/19 20:59 Last Admin: 08/09/19 10:22 Dose: 600 mg Documented by: Haloperidol (Haldol) 5 mg PO BID [facility] Stop: 09/20/19 20:59 Last Admin: 08/22/19 09:01 Dose: 5 mg Documented by: Hydroxyzine HCl (Vistaril) 50 mg PO HSZ PRN PRN Reason: Insomnia Stop: 09/05/19 17:57 Last Admin: 08/22/19 00:43 Dose: 50 mg Documented by: Hydroxyzine HCl (Vistaril) 25 mg PO Q4H PRN PRN Reason: Anxiety Stop: 09/05/19 17:57 Lisinopril (Zestril) 40 mg PO [facility] Stop: 09/06/19 08:59 Last Admin: 08/22/19 09:03 Dose: 40 mg Documented by: Magnesium Hydroxide (Milk Of Magnesia) 30 ml PO DAILY PRN PRN Reason: Constipation Stop: 09/05/19 17:57 Multivitamins (Multivitamin Tab) 1 tab PO [facility] Stop: 09/06/19 08:59 Last Admin: 08/22/19 09:02 Dose: 1 tab Documented by: Nadolol (Corgard) 80 mg [facility] [place] Stop: 09/06/19 08:59 Last Admin: 08/22/19 09:01 Dose: 80 mg Documented by: Polyethylene Glycol (Miralax Powder Packet) 17 gm PO DAILY PRN PRN Reason: Constipation Stop: 09/05/19 17:59 Last Admin: 08/13/19 08:07 Dose: 17 gm Documented by: Sodium Chloride (Butts Nasal) 1 - 2 sprays NA PRN PRN PRN Reason: Nasal Dryness/Congestion Stop: 09/05/19 17:57 Triamcinolone Acetonide (Kenalog 0.025%) 1 appln TOP BID PRN PRN Reason: SKIN IRRITATIONS Stop: 09/05/19 17:59 Last Admin: 08/20/19 07:57 Dose: 1 appln Documented by: Mental Health & Subst Abuse Tx Psychiatrist Name of Psychiatrist: Ranjana Price PA-C Psychiatrist's Date of Appointment with Psychiatrist: 08/14/19 Time of Appointment with Psychiatrist: 2:30pm Psychiatric Appointment Comment: [facility] [place] [address] Therapist Name of Therapist: Jenaro Risk Control Field Representative Name of Risk Control Field Representative: [facility] Laura Phone Number for Risk Control Field Representative: [phone] Post Discharge Appointments Primary Care Physician Name Of Family Doctor: Dr. Quintero Primary Care Provider Appointment Comment: As needed Contact Information Discharge Discharge Address: [address] [place] [address], [place] [address]
[2019-08-23] MEDS: nadoloL 40 MG TAB PO SCH (08:52)
[2019-08-23] MEDS: BENZTROPINE MESYLATE 0.5 MG TAB PO SCH ×2 (08:52→20:41)
[2019-08-23] MEDS: ALBUTEROL HFA 8 GM INHALER INH SCH ×4 (08:52→20:41)
[2019-08-23] MEDS: ASPIRIN 81 MG ECTAB PO SCH (08:53)
[2019-08-23] MEDS: CALCIUM CARBONATE 1250MG TAB PO SCH (08:53)
[2019-08-23] MEDS: MULTIVITAMIN TAB PO SCH (08:53)
[2019-08-23] MEDS: haloperidoL 5 MG TAB PO SCH ×2 (08:53→20:42)
[2019-08-23] MEDS: ATORVASTATIN 40 MG TAB PO SCH (08:53)
[2019-08-23] MEDS: lisinopriL 40 MG TAB PO SCH (08:53)
--- NOTE | 2019-08-23 17:20 | Psychiatric Progress Note ---
Date of Service August 23, 2019 Impression / Recommendations Impression 69-year-old female admitted voluntarily for inpatient psychiatric treatment on 08/06/2019 after presenting to the ED for mental health evaluation. Patient verbalized the belief that she gave recently, her story varies from 1 baby 1.5 years ago to as many as 5 babies as recently as 06/19/2019. Family reported she was not caring for her needs. Given history of numerous psychiatric hospitalizations, delusional thought process, history of mood symptoms, and current flight of ideas and looseness of associations we will proceed with a working diagnosis of schizoaffective disorder, bipolar type. Pt already had trials of aripiprazole and paliperidone, which were not effective to target delusional thought content and disorganization of thought process. EEG obtained during her stay to rule out temporal-lobe epilepsy or other possible neurologic process - no gross abnormalities noted. The patient's condition seems to have improved fairly precipitously when she was placed on haloperidol 2.5 mg twice a day. She had also been placed on Depakote 500 mg at bedtime, but reported some excess sedation and our impression is that her favorable response seems to be primarily related to haloperidol. Acc ordingly, we discontinuing Depakote at this time, while increasing her dose of haloperidol to 5 mg twice a day at the same time, is noted that there is evidently a family history of favorable response to mood stablizers, and so we will monitor the patient's condition and restart Depakote as indicated. On testing, there is very mild cogwheeling and we added benztropine 0.5 mg twice a day to the patient's medication regimen. noticing further improvement and improved self care and improved engagement with others including in groups (1) Schizoaffective disorder, bipolar type: 08/07 - Admitted to a locked inpatient behavioral health unit, on q15 minute safety checks - Initiate aripiprazole 5mg qAM to target psychosis, with indication for depressive symptoms as well - risks, benefits, and potential side effects reviewed. Pt verbalized understanding and is agreeable - Will discontinue sertraline as patient reports nausea has prevented regular compliance; she has only been taking it every 4-5 days - Will require collateral information from and/or children regarding her psychiatric history - are recent admissions only list depression - Encourage participation in group and recreational therapies - Encourage family meeting to involve outpatient supports in safety planning - Arrange appropriate aftercare with referrals for a therapist and psychiatrist at discharge 08/08 --increase Abilify 7.5 mg today. Baseline AIMS appears to be 0. 2/2 --Abilify 10 mg daily (improving) 2 --Abilify 15 mg daily, hesitant to add lithium given TSH elevation (daughter reportedly did well on it in combo with Clozaril). 08/11 - Continue aripiprazole 15mg daily - consider need for further titration versus trial of an alternative agent as patient continues to be floridly psychotic with ongoing disorganization of thought and delusional thought content - Family meeting was attempted yesterday with patient's daughter and - patient was limited in her ability to tolerate the meeting - Continue to arrange aftercare 08/12 - Titrate aripiprazole to 20mg daily starting tomorrow morning - patient remains delusional with inability to participate in reality testing - Pt more focused on various physical complaints (headache, dizziness, parasites) - continue to monitor, brief neuro assessment completed without any gross abnormalities - Will need to schedule a repeat family meeting once patient is better able to tolerate - Coordinate care with outpatient providers - Fasting labs obtained on 08/08/2019 - fasting glucose and lipid panel with all values WNL 08/13 - Cross-taper from aripiprazole to paliperidone, as patient is not demonstrating significant improvement with aripiprazole trial - Pt remains preoccupied with numerous physical complaints - now believing she pulled teeth from her head and that she has a tapeworm - Continue to coordinate care with family; will require repeat family meeting once able to tolerate the interaction 08/14 - Continue cross-taper from aripiprazole to paliperidone. Pt received last dose of aripiprazole this morning, and will increase paliperidone to 9mg tomorrow morning 08/15 -Patient has completed Abilify to invega cross-taper. -Remains floridly psychotic with complex delusions and disorganized thought process. Continued psychiatric hospitalization remains necessary for ongoing treatment and provision of safety due to degree of psychosis 08/16 -Patient remains delusional with some flight of ideas. At times she seems a little self-aggrandizing and thoughts are certainly coming rapidly and she remains very busy minded. I wonder if she might benefit from an anticonvulsant retrial. Given self-report of some possible multimodal hallucinations and clinical history, I would like to check a bedside EEG to try to rule out something like temporal lobe epilepsy as possible contributing underlying etiology. Routine EEG not available over weekend and will be ordered for Saturday . -Primary team can consider further titration of invega in the next few days 08/17 - Continue paliperidone 9mg daily - Routine EEG completed this morning; "no focal abnormalities, potentially epileptogenic discharges, or abnormal slow activity was seen". Will begin trial of Depakote, starting with 250mg this evening - continue titration as tolerated - Pt remains delusional and is difficult to redirect at times, though she remains pleasant and continues to participate in group programming 08/18 - Continue paliperidone 9mg qAM - Depakote increased to 500mg for this evening. Pt continues to deny medication side effects - Pt continues to verbalize delusional thought content, believing her new business case analyst will help her get her 3 babies back from [place] - Pt met with business case analyst yesterday - Cooperative with [facility] today. Pt scored a 27/30, demonstrating "normal" cognitive functioning. She did have several errors; however, immediately corrected many of them, including the areas of: alternating trail making, and fluency (correcting for proper nouns and repeats and still being able to name 15 appropriate words). Pt did have one incorrect subtraction in the serial 7's task, and struggled to repeat only one sentence with total accuracy in the language task. Pt was able to recall 3 of 5 words without cues in delayed recall task. - We did review that patient should not immediately return to driving after discharge until she is demonstrating stability of psychiatric symptoms - will need to review this with family as well. 08/19 - Planning to switch from paliperidone to haloperidol, as patient continues to demonstrate delusional thought content that is not responding to trials of atypical antipsychotics - Will order one-time dose of 2.5mg and assess tolerability - could consider 2.5mg qAM and 5mg qHS and titrate from there - Repeat family meeting was attempted today with patient's , patient remains frustrated with him and his lack of support for the babies she believes they had - Pt continue to be unable to participate in any type of reality testing, making demands that our staff contact the facility where she believes she gave . She is becoming more paranoid of staff, believing she has been told not to speak with certain individuals. She remains at ongoing risk of further decompensation and potential harm to self or others based on the severity of these delusional beliefs and her disorganized thought process 08/20 - Continue haloperidol 2.5mg BID - while patient's delusions persist, and she will likely need a higher dosage of the medication, she has also demonstrated significantly increased fatigue today, likely correlated to recent medication change. Will plan to continue dose titrate as tolerated - Continue Depakote 500mg qHS - Pt scheduled to meet with her business case analyst again today 08/21 -The patient's response to haloperidol was fairly quick and impressive. She had been started on Depakote on 08/17/2019, and the dose was titrated to 500 mg at bedtime. She complains of some excess sedation that seems to be related to Depakote and given her evident response to haloperidol we will discontinue Depakote at this time and plan to restart it if indicated in the future. -Given patient's favorable response to haloperidol we will increase the dose of haloperidol from 2.5 mg twice a day to 5 mg twice a day. -Mild cogwheeling is noted on examination today. We will start benztropine 0.5 mg twice a day for EPS. 08/22 maintained treatment plan unchanged exploring for response to medications and s/e 08/23 rescinding limitations on visitors that are under age 18 given progress in pt otherwise maintained plan as further improvement noted, observe for brekathrough psychotic smypotms and preparing for discharge likely in 1-2 days if progress continues (2) Delusion of : 08/07 - Patient's reports are inconsistent. She reports giving to 5 babies recently, but then also told ED staff that she believes she is currently - ruled out - urine HCG is negative; patient admits to tubal ligation in 08/09--patient still believes had multiple infants last year but clearly states not now. Believes children are alive and in [place] 08/17 - Staff report patient has made comments about being with triplets, but also needing to get a hysterectomy 08/21 -The patient spontaneously states today that she realizes that 1 of the reason she is in the hospital was that she had been claiming to be , and she notes that she now realizes that this is not possible given her age (69 years old). -She did make several statements today which, 1 of which may be considered delusional without collateral information. Specifically, she claimed that her brother has "MRSA in his foot" and became angry at her and deliberately rubbed his infected foot on her carpet. The patient also said that she had been "wondering" if doctors would ever do anything such as place a "titanium coat roof panel hanger" in someone's footbut then she spontaneously said that she realized that this is not something that would actually happen. 08/23 maintained plan as improvement further noted. (3) History of MRSA infection: first swab negative on admission, MNPR pending 2nd swab day 5 if still ho spitalized. 08/11 - Repeat MRSA swab obtained today, results are positive - Maintain MNPR at this time (4) Wheezing on auscultation: repeat CBC, CXR, Mucinex prn, ventolin inhaler q4 hr WA. (5) TSH elevation: will need repeat as outpatient within 6 weeks via primary care Risk Factors Assessment Male: No : Yes Mental Health Diagnoses: Yes Previous Psychiatric Hospitalization: Yes Protective Factors Assessment Christian Beliefs: Yes : Yes Employed: No Stable Relationships: Yes Supportive Family: Yes Interval History Identifying Information MARIAMA TORRES is a 69-year-old F who currently lives in [place] with her . Pt only reports a history of depression though is familiar with the term "schizophrenia". She was admitted on 08/06/19 17:58 on a 201 voluntary commitment for delusions and reported inability to care for self according to . Chief Complaint "I feel much better". Review of Systems Sleep Information Total Hours of Sleep: 8 Sleep Comments: pt on q-15 minute checks Meal Information Percent Meal Consumed - Breakfast: 100 Percent Meal Consumed - Lunch: 75 Percent Meal Consumed - Dinner: 100 Nutrition Comment: per meal record Subjective Subjective Patient was seen & assessed and interval progress reviewed with nursing and social work. Pt is more engaging and less tired today, does sometimes lay down in her bed during breaks in schedule but attending groups and interacting with peers. She indicates to write and to staff that has let go of her previous belief about having birthed children recent and realized she is much too old to have children. She feels comfortable with having children visit on the unit today. She denied SI or HI, denied AH or VH and no paranoid or delusional material was noted in interactions with instructional writer or staff today. She was a ppropriate in group and provided appropriate feedback to per in group today. appetite intact, slept well last night. no headache, denied MARNI. some mild cogwheeling noted, pt views medication positively, noticing difference, showered, groomed self did her hair Physical Exam Psychiatric Orientation: alert, oriented x 3, oriented to person and cooperative Apperance: appropriately dressed, appropriately groomed and appeared stated age Eye Contact: good eye contact Motor Behavior: steady gait and station and no abnormal motor movements; no psychomotor agitation Speech: normal rate/rhythm/volume of speech; no pressured speech (But is overproductive and rapid) Affect: euthymic affect; no labile affect Mood: + dysphoric mood; no depressed mood and no anxious mood Thought Process: goal directed thought process (However, times the patient is somewhat tangential.) and linear/logical thought process Thought Content: reality based without delusions (being voiced) Suicidal Thoughts: denies suicidal thoughts Homicidal Thoughts: denies homicidal thoughts Hallucinations: no auditory hallucinations, no visual hallucinations and no tactile hallucinations Cognition: recent memory grossly intact, remote memory grossly intact, attention grossly intact and language grossly intact Estimated Intelligence: consistent with education level Insight: + fair insight Judgement: + fair judgement Vital Signs (Past 24 Hours) Last Vital Signs Temp 36.6 C 08/23/19 06:47 Pulse 76 08/23/19 06:48 Resp 18 08/23/19 06:47 BP 136/80 08/23/19 06:48 Pulse Ox 97 08/09/19 11:34 Results & Data ([facility]) Current Inpatient Medications Current Inpatient Medications: Current Inpatient Medications Acetaminophen (Tylenol) 650 mg PO Q4H PRN PRN Reason: Headache or Minor Fever Stop: 09/05/19 17:57 Last Admin: 08/21/19 18:26 Dose: 650 mg Documented by: Al Hydrox/Mg Hydrox/Simethicone (Maalox) 30 ml PO Q4H PRN PRN Reason: GI Upset Stop: 09/05/19 17:57 Last Admin: 08/15/19 21:18 Dose: 30 ml Documented by: Albuterol (Ventolin Hfa) 2 puffs INH Q4HWA GARY Stop: 09/08/19 11:59 Last Admin: 08/23/19 16:30 Dose: 2 puffs Documented by: Aspirin (Ecotrin Ectab) 81 mg PO [facility] Stop: 09/06/19 08:59 Last Admin: 08/23/19 08:53 Dose: 81 mg Documented by: Atorvastatin Calcium (Lipitor) [facility] [place] Stop: 09/06/19 08:59 Last Admin: 08/23/19 08:53 Dose: 40 mg Documented by: Benztropine Mesylate (Cogentin) 0.5 mg PO BID [facility] Stop: 09/20/19 20:59 Last Admin: 08/23/19 08:52 Dose: 0.5 mg Documented by: Bismuth Subsalicylate (Kaopectate) 15 ml PO PRN PRN PRN Reason: Loose Stool Stop: 09/05/19 17:57 Calcium Carbonate (Os-Jae 500) 1,250 mg PO [facility] Stop: 09/06/19 08:59 Last Admin: 08/23/19 08:53 Dose: 1,250 mg Documented by: Guaifenesin (Mucinex) 600 mg PO Q12 PRN PRN Reason: Cough Stop: 09/08/19 20:59 Last Admin: 08/09/19 10:22 Dose: 600 mg Documented by: Haloperidol (Haldol) 5 mg PO BID [facility] Stop: 09/20/19 20:59 Last Admin: 08/23/19 08:53 Dose: 5 mg Documented by: Hydroxyzine HCl (Vistaril) 50 mg PO HSZ PRN PRN Reason: Insomnia Stop: 09/05/19 17:57 Last Admin: 08/22/19 00:43 Dose: 50 mg Documented by: Hydroxyzine HCl (Vistaril) 25 mg PO Q4H PRN PRN Reason: Anxiety Stop: 09/05/19 17:57 Lisinopril (Zestril) 40 mg PO [facility] Stop: 09/06/19 08:59 Last Admin: 08/23/19 08:53 Dose: 40 mg Documented by: Magnesium Hydroxide (Milk Of Magnesia) 30 ml PO DAILY PRN PRN Reason: Constipation Stop: 09/05/19 17:57 Multivitamins (Multivitamin Tab) 1 tab PO [facility] Stop: 09/06/19 08:59 Last Admin: 08/23/19 08:53 Dose: 1 tab Documented by: Nadolol (Corgard) 80 mg PO QAM GARY Stop: 09/06/19 08:59 Last Admin: 08/23/19 08:52 Dose: 80 mg Documented by: Polyethylene Glycol (Miralax Powder Packet) 17 gm PO DAILY PRN PRN Reason: Constipation Stop: 09/05/19 17:59 Last Admin: 08/13/19 08:07 Dose: 17 gm Documented by: Sodium Chloride ([place] Nasal) 1 - 2 sprays NA PRN PRN PRN Reason: Nasal Dryness/Congestion Stop: 09/05/19 17:57 Triamcinolone Acetonide (Kenalog 0.025%) 1 appln TOP BID PRN PRN Reason: SKIN IRRITATIONS Stop: 09/05/19 17:59 Last Admin: 08/20/19 07:57 Dose: 1 appln Documented by: Mental Health & Subst Abuse Tx Psychiatrist Name of Psychiatrist: Ranjana Price PA-C Psychiatrist's Date of Appointment with Psychiatrist: 08/14/19 Time of Appointment with Psychiatrist: 2:30pm Psychiatric Appointment Comment: [facility] [place] [address] Therapist Name of Therapist: Jenaro Restaurant Assistant Name of Restaurant Assistant: [facility] Phone Number for Restaurant Assistant: [phone] Post Discharge Appointments Primary Care Physician Name Of Family Doctor: Dr. Quintero Primary Care Provider Appointment Comment: As needed Contact Information Discharge Discharge Address: [address] [place] [address], [place] [id number]
[2019-08-24] MEDS: ALBUTEROL HFA 8 GM INHALER INH SCH (07:55)
[2019-08-24] MEDS: ASPIRIN 81 MG ECTAB PO SCH (09:07)
[2019-08-24] MEDS: BENZTROPINE MESYLATE 0.5 MG TAB PO SCH (09:07)
[2019-08-24] MEDS: nadoloL 40 MG TAB PO SCH (09:07)
[2019-08-24] MEDS: haloperidoL 5 MG TAB PO SCH (09:08)
[2019-08-24] MEDS: ATORVASTATIN 40 MG TAB PO SCH (09:09)
[2019-08-24] MEDS: MULTIVITAMIN TAB PO SCH (09:09)
[2019-08-24] MEDS: lisinopriL 40 MG TAB PO SCH (09:09)
[2019-08-24] MEDS: CALCIUM CARBONATE 1250MG TAB PO SCH (09:09)
--- NOTE | 2019-08-24 09:30 | Discharge Summary ---
Date of Service August 24, 2019 History of Present Illness Zehra Boland" Marciano is a 69-year-old female admitted voluntarily for inpatient psychiatric treatment on 08/06/2019 after presenting to the ED accompanied by her for reported delusions of . Patient's had reportedly verbalized concern that the patient has not been caring for herself for the past several weeks and that he is "worried she is going to get hurt." It appears as though patient does have a history of meeting with outpatient psychiatrist; however, she is only currently prescribed sertraline 200 mg daily supplied by her PCP. In the ED, patient had reported calling her PCP's office about concern surrounding "missing babies", which the patient believes are her children and that they are still in [place] where she delivered them. Police were requested to do a wellness check, and brought the patient to the ED for mental health evaluation. In the ED, patient had reported numerous psychiatric hospitalizations in the past specifically at [facility] - most recent admission to our unit was reportedly 1992. Patient is cooperative with psychiatric evaluation. She provides verbal consent to allow Cynthia Gonzalez PA-C to observe today's encounter. The patient states that she is doing well, admitting "I think the Zoloft is kicking in and I am feeling better." She verbalizes this statement, but also admits that she has not taken her Zoloft and 4 or 5 days. She reports taking 200 mg of sertraline daily but admits that it causes nausea, leading her to hold the medication for 4 to 5 days before resuming again. She states "I am hoping someone could find something better than Zoloft for mood dry mop maker", citing the nausea as her biggest concern. Patient states that she has been taking sertraline since "the early ." She quickly begins telling this provider about the fact that she has "5 kids to raise. I just found out I have 5 more little babies over a Bharath." According to the patient, she was caring for her mother at a medical facility in [place] when she "went into labor" and delivered 5 infants. She states they were born on 06/19/2019, and are all "a year and 1 month old." The patient states she took the babies, wrapped up in a blanket, and took him to the emergency room of the medical facility. Patient states she has not seen the children since she delivered them. The patient states "my does not believe I had any babies because none of them are Mongoloid." Patient firmly believes that she did give to these children, and is not able to offer an explanation as to why she is able to give at the age of 69. Patient does admit that she had a tubal ligation in 1983, but believes that this was reversed at some point which allowed her to become again. Patient states that she also has 5 adult children whom she had her have already raised. Two of which, the patient states from a local to the [facility] area. Other cm points the patient brings up is the belief that her has been unfaithful, having had relations with the patient mother and other family members. She states, "I'm staying with him because they kept telling me ''if you want those babies you need a '." Pt also mentions a belief that she has 10 bullets in her head "one of which is Bettye Ivan. One has my mother's name on it and another one has my brother's name." In sharing these events patient frequently uses vague pronouns - i.e. "I hope that she can find a medication that works better", "they told me I have 5 babies waiting for me", etc. When asked specifically who these people are, she is unable to provide an answer, simply stating "I'm not really sure." Pt was asked about history of psychiatric diagnosis, and admits she was diagnosed with depression in the past. Pt states that once the sertraline was started, "the mood got better, and then turned into anxiety." Pt is not able to clearly articulate symptoms of depression or anxiety at this time. She was asked if any other diagnoses had been discussed such as bipolar disorder, schizophrenia, and others. She states, "schizophrenia, I think someone said that once." Pt does admit to familiarity with several antipsychotic medications, believing she has tried: chlorpromazine, aripiprazole, risperidone, and haloperidol. She also believes she had been prescribed bupropion, paroxetine, and alprazolam in the past. While patient is limited in her ability to discuss past psychiatric treatment, she does casually mention words such as "tardive dyskinesia" and "partial hospitalization." She states she has not worked with an outpatient psychiatrist in over a decade, and that her PCP has been prescribing her medications. Pt denies SI/HI, SIB, and auditory of visual hallucinations. Physical Exam Psychiatric Orientation: alert, oriented x 3 and cooperative Apperance: appropriately dressed Obese, seated in NAD. Casually dressed, fair grooming and hygiene. Motor Behavior: steady gait and station and no abnormal motor movements Speech: normal rate/rhythm/volume of speech Affect: euthymic affect and mood congruent with affect "Real good." Thought Process: goal directed thought process Thought Content: reality based without delusions Suicidal Thoughts: denies suicidal thoughts Homicidal Thoughts: denies homicidal thoughts Hallucinations: no auditory hallucinations and no visual hallucinations Cognition: recent memory grossly intact, attention grossly intact and language grossly intact Insight: + fair insight Judgement: + fair judgement Vital Signs (Past 24 Hours) Last Vital Signs Temp 36.6 C 08/24/19 06:52 Pulse 72 08/24/19 06:52 Resp 18 08/24/19 06:52 BP 141/76 H 08/24/19 06:52 Pulse Ox 97 08/09/19 11:34 Principal Diagnosis Schizoaffective disorder, bipolar type Psychiatric Data The patient was hospitalized for 18 days. On admission, she was started on aripiprazole to target psychotic and mood symptoms, which was titrated to 20 mg daily, but was ineffective, she remained floridly delusional, disorganized, and unable to reality test. She was switched to paliperidone, which was titrated to 9 mg daily, and was also ineffective. She was then switched to haloperidol, which was titrated to 5 mg twice daily, and psychotic symptoms decreased and resolved. She scored 27/30 on the [facility], and had an EEG on 08/17/2019 to rule out temporal lobe epilepsy, which was negative for focal abnormalities, potential epileptogenic discharges, and abnormal slow activity. She was then started on Depakote for mood stabilization, but it was discontinued after several days due to sedation, and because she appeared to be responding well to haloperidol. She had mild cogwheeling, so was started on benztropine 0.5 mg twice daily. She had multiple family meetings with her daughter and , and they visited frequently. They were advised that she should not return to driving until she had fully stabilized. Over the last few days in the hospital, her delusions resolved, and she repeatedly stated that she knew she could not be , and reported feeling less distressed overall. Her sleep improved and was stable by the end of her hospitalization, and she was eating well and performing ADLs independently. She was referred for outpatient psychiatric care and case management, but declined psychotherapy referrals. Day of Discharge Assessment Staff report she was tangential at times in her interactions with them, talking about events from the past and interactions with various family members. Her and daughter visited, and met with the social media campaign manager yesterday, indicated that the patient had improved, and worry in agreement with discharge today. She has not been discussing delusions of /having babies, and has spontaneously told multiple staff that she now knows these things did not happen. She attended and participated in groups, and wrote letters to her family that were appropriate and content. She has been consistently reporting good mood. On my assessment, she states that she is "real good," it is hopeful for discharge today. She reports good visit with her family over the weekend, and is looking forward to returning home and spending time with her . She is able to state that she was hospitalized due to her believes that she was and/or giving , and states she knows that is not true as "a 69-year-old woman does not have babies." She says that she came in because her family was "real concerned I was losing my mind. Now I don't think I had a baby." She says she feels less stressed and ready to move on with her life. She states she does not yet feel ready to drive, and again reviewed recommendations that she not drive until she has had a period of stability and has seen her outpatient physician and been given clearance to resume driving. Transition of Care Transition Of Care Record: was reviewed with the patient Advance Directives Advance Directives Information Provided: Yes Advance Directives: No Mental Health Advance Directive: No Advance Directives on File: No Living Will: No Power of Research Specialist: No Advance Directives Reason:: Declines as Mental Health Visit. Risk Factors Assessment Risk factors were mitigated by admission to the inpatient unit, use of medications to target mood and psychotic symptoms, involvement in groups and therapy, working on healthy coping skills and discharge safety plan, multiple family meetings with and daughter, referring her for outpatient mental health treatment including psychiatric care and case management, treating comorbid medical conditions and referral to PCP for ongoing treatment/follow-up, and education about her diagnoses and the treatment recommendations. She has demonstrated improvement in mood and psychotic symptoms, is taking medication as prescribed and tolerating it well, has displayed stable mood and is no longer voicing delusional thought content, behavior is more organized and she is eating and sleeping well, and performing ADLs independently, has consistently denied thoughts of harming herself or anyone else, and both she and family are stating readiness for discharge. She is no longer at acute risk of harm to herself, so can be managed as an outpatient at this time. Male: No : Yes Do You Have Access To A Gun?: No Health Problems: Yes Mental Health Diagnoses: Yes Substance Use Disorders: No Previous Attempt: No Previous Psychiatric Hospitalization: Yes Hopelessness: No Smoker: No Protective Factors Assessment Buddhism Beliefs: Yes : Yes Responsible for Young Children: No Employed: No Stable Relationships: Yes Supportive Family: Yes Good Rapport with Provider: Yes Tobacco Cessation at Discharge Tobacco Cessation Medication Prescribed at Discharge: Not Applicable/Non-Smoker Total Time Total Time Spent: Greater Than 30 Minutes Total Time Includes: Examination of the patient, Discharge Planning and Medication Reconciliation Discharge Data Lab Results 08/06/19 08/06/19 08/06/19 12:50 12:50 13:03 WBC 13.61 H RBC 4.88 Hgb 14.4 Hct 43.1 MCV 88.3 MCH 29.5 MCHC 33.4 RDW Std Deviation 46.5 H RDW Coeff of Rocío 14.3 Plt Count 240 MPV 9.5 Immature Gran % (Auto) 0.2 Neut % (Auto) 77.8 Lymph % (Auto) 12.5 Douglas % (Auto) 7.1 Eos % (Auto) 2.3 Baso % (Auto) 0.1 Immature Gran # (Auto) 0.03 H Neut # (Auto) 10.59 H Lymph # (Auto) 1.70 Douglas # (Auto) 0.96 H Eos # (Auto) 0.31 Baso # (Auto) 0.02 Sodium Potassium Chloride Carbon Dioxide Anion Gap BUN Creatinine Est Cr Clr Drug Dosing Est GFR ( Amer) Est GFR (Non-Af Amer) BUN/Creatinine Ratio Glucose Fasting Glucose Calcium Total Bilirubin AST ALT Alkaline Phosphatase Total Protein Albumin Globulin Albumin/Globulin Ratio Triglycerides Cholesterol LDL Cholesterol, Calc VLDL Cholesterol, Calc HDL Cholesterol Cholesterol/HDL Ratio TSH Free T4 HCG, Qual Urine Color Dark Yellow Urine Appearance Clear Urine pH 5.0 Ur Specific Girard 1.028 Urine Protein Negative Urine Glucose (UA) Negative Urine Ketones Trace H Urine Blood Negative Urine Nitrite Negative Urine Bilirubin Negative Urine Urobilinogen Negative Ur Leukocyte Esterase Negative Urine WBC (Auto) Urine RBC (Auto) U Hyaline Cast (Auto) U Epithel Cells (Auto) Urine Bacteria (Auto) Urine Yeast Nasal Screen MRSA (PCR) Salicylates Urine Opiates Screen Neg Ur Methadone, Qual Neg Acetaminophen Urine Barbiturates Neg Ur Phencyclidine (PCP) Neg U Amphetamin/Meth Scrn Neg MDMA (Ecstasy) Screen Neg U Benzodiazepines Scrn Neg Ur Cocaine Metabolite Neg U Marijuana (THC) Screen Neg Ethyl Alcohol mg/dL 08/06/19 08/06/19 08/06/19 13:03 13:03 13:03 WBC RBC Hgb Hct MCV MCH MCHC RDW Std Deviation RDW Coeff of Roc[place] Plt Count MPV Immature Gran % (Auto) Neut % (Auto) Lymph % (Auto) Douglas % (Auto) Eos % (Auto) Baso % (Auto) Immature Gran # (Auto) Neut # (Auto) Lymph # (Auto) Douglas # (Auto) Eos # (Auto) Baso # (Auto) Sodium 140 Potassium 4.6 Chloride 107 Carbon Dioxide 31 Anion Gap 2.0 L BUN 20 H Creatinine 1.00 Est Cr Clr Drug Dosing 71.1 Est GFR ( Amer) 66.6 Est GFR (Non-Af Amer) 57.4 BUN/Creatinine Ratio 20.2 H Glucose 93 Fasting Glucose Calcium 8.9 Total Bilirubin 0.5 AST 17 ALT 25 Alkaline Phosphatase 123 H Total Protein 7.2 Albumin 3.3 L Globulin 3.9 Albumin/Globulin Ratio 0.8 L Triglycerides Cholesterol LDL Cholesterol, Calc VLDL Cholesterol, Calc HDL Cholesterol Cholesterol/HDL Ratio TSH 8.580 H Free T4 0.94 HCG, Qual Urine Color Urine Appearance Urine pH Ur Specific Girard Urine Protein Urine Glucose (UA) Urine Ketones Urine Blood Urine Nitrite Urine Bilirubin Urine Urobilinogen Ur Leukocyte Esterase Urine WBC (Auto) Urine RBC (Auto) U Hyaline Cast (Auto) U Epithel Cells (Auto) Urine Bacteria (Auto) Urine Yeast Nasal Screen MRSA (PCR) Salicylates < 1.7 L Urine Opiates Screen Ur Methadone, Qual Acetaminophen < 2 L Urine Barbiturates Ur Phencyclidine (PCP) U Amphetamin/Meth Scrn MDMA (Ecstasy) Screen U Benzodiazepines Scrn Ur Cocaine Metabolite U Marijuana (THC) Screen Ethyl Alcohol mg/dL < 3.0 08/06/19 08/06/19 08/08/19 13:03 15:20 07:18 WBC RBC Hgb Hct MCV MCH MCHC RDW Std Deviation RDW Coeff of Rocío Plt Count MPV Immature Gran % (Auto) Neut % (Auto) Lymph % (Auto) Douglas % (Auto) Eos % (Auto) Baso % (Auto) Immature Gran # (Auto) Neut # (Auto) Lymph # (Auto) Douglas # (Auto) Eos # (Auto) Baso # (Auto) Sodium Potassium Chloride Carbon Dioxide Anion Gap BUN Creatinine Est Cr Clr Drug Dosing Est GFR ( Amer) Est GFR (Non-Af Amer) BUN/Creatinine Ratio Glucose Fasting Glucose 99 Calcium Total Bilirubin AST ALT Alkaline Phosphatase Total Protein Albumin Globulin Albumin/Globulin Ratio Triglycerides 119 Cholesterol 154 LDL Cholesterol, Calc 87 VLDL Cholesterol, Calc 24 HDL Cholesterol 43 Cholesterol/HDL Ratio 4 TSH Free T4 HCG, Qual Negative Urine Color Urine Appearance Urine pH Ur Specific Girard Urine Protein Urine Glucose (UA) Urine Ketones Urine Blood Urine Nitrite Urine Bilirubin Urine Urobilinogen Ur Leukocyte Esterase Urine WBC (Auto) Urine RBC (Auto) U Hyaline Cast (Auto) U Epithel Cells (Auto) Urine Bacteria (Auto) Urine Yeast Nasal Screen MRSA (PCR) Negative Salicylates Urine Opiates Screen Ur Methadone, Qual Acetaminophen Urine Barbiturates Ur Phencyclidine (PCP) U Amphetamin/Meth Scrn MDMA (Ecstasy) Screen U Benzodiazepines Scrn Ur Cocaine Metabolite U Marijuana (THC) Screen Ethyl Alcohol mg/dL 08/09/19 08/09/19 08/09/19 12:30 12:30 14:25 WBC 13.78 H RBC 5.26 Hgb 15.7 Hct 45.7 MCV 86.9 MCH 29.8 MCHC 34.4 RDW Std Deviation 45.1 RDW Coeff of Rocío 14.3 Plt Count 307 MPV 9.6 Immature Gran % (Auto) 0.1 Neut % (Auto) 68.4 Lymph % (Auto) 19.0 Douglas % (Auto) 9.9 Eos % (Auto) 2.4 Baso % (Auto) 0.2 Immature Gran # (Auto) 0.02 Neut # (Auto) 9.41 H Lymph # (Auto) 2.62 Douglas # (Auto) 1.37 H Eos # (Auto) 0.33 Baso # (Auto) 0.03 Sodium Potassium Chloride Carbon Dioxide Anion Gap BUN Creatinine Est Cr Clr Drug Dosing Est GFR ( Amer) Est GFR (Non-Af Amer) BUN/Creatinine Ratio Glucose Fasting Glucose Calcium Total Bilirubin AST ALT Alkaline Phosphatase Total Protein Albumin Globulin Albumin/Globulin Ratio Triglycerides Cholesterol LDL Cholesterol, Calc VLDL Cholesterol, Calc HDL Cholesterol Cholesterol/HDL Ratio TSH 10.500 H Free T4 1.04 HCG, Qual Urine Color Dark Yellow Urine Appearance Cloudy A Urine pH 5.0 Ur Specific Girard 1.026 Urine Protein Negative Urine Glucose (UA) Negative Urine Ketones Negative Urine Blood Negative Urine Nitrite Negative Urine Bilirubin Negative Urine Urobilinogen Negative Ur Leukocyte Esterase Trace H Urine WBC (Auto) 1-5 Urine RBC (Auto) 5-10 H U Hyaline Cast (Auto) 1-5 U Epithel Cells (Auto) >30 H Urine Bacteria (Auto) Negative Urine Yeast Not Reportable Nasal Screen MRSA (PCR) Salicylates Urine Opiates Screen Ur Methadone, Qual Acetaminophen Urine Barbiturates Ur Phencyclidine (PCP) U Amphetamin/Meth Scrn MDMA (Ecstasy) Screen U Benzodiazepines Scrn Ur Cocaine Metabolite U Marijuana (THC) Screen Ethyl Alcohol mg/dL 08/11/19 09:09 WBC RBC Hgb Hct MCV MCH MCHC RDW Std Deviation RDW Coeff of Roc[place] Plt Count MPV Immature Gran % (Auto) Neut % (Auto) Lymph % (Auto) Douglas % (Auto) Eos % (Auto) Baso % (Auto) Immature Gran # (Auto) Neut # (Auto) Lymph # (Auto) Douglas # (Auto) Eos # (Auto) Baso # (Auto) Sodium Potassium Chloride Carbon Dioxide Anion Gap BUN Creatinine Est Cr Clr Drug Dosing Est GFR ( Amer) Est GFR (Non-Af Amer) BUN/Creatinine Ratio Glucose Fasting Glucose Calcium Total Bilirubin AST ALT Alkaline Phosphatase Total Protein Albumin Globulin Albumin/Globulin Ratio Triglycerides Cholesterol LDL Cholesterol, Calc VLDL Cholesterol, Calc HDL Cholesterol Cholesterol/HDL Ratio TSH Free T4 HCG, Qual Urine Color Urine Appearance Urine pH Ur Specific Girard Urine Protein Urine Glucose (UA) Urine Ketones Urine Blood Urine Nitrite Urine Bilirubin Urine Urobilinogen Ur Leukocyte Esterase Urine WBC (Auto) Urine RBC (Auto) U Hyaline Cast (Auto) U Epithel Cells (Auto) Urine Bacteria (Auto) Urine Yeast Nasal Screen MRSA (PCR) Positive A Salicylates Urine Opiates Screen Ur Methadone, Qual Acetaminophen Urine Barbiturates Ur Phencyclidine (PCP) U Amphetamin/Meth Scrn MDMA (Ecstasy) Screen U Benzodiazepines Scrn Ur Cocaine Metabolite U Marijuana (THC) Screen Ethyl Alcohol mg/dL Hospital Course (1) Schizoaffective disorder, bipolar type: 08/07 - Admitted to a locked inpatient behavioral health unit, on q15 minute safety checks - Initiate aripiprazole 5mg qAM to target psychosis, with indication for depressive symptoms as well - risks, benefits, and potential side effects reviewed. Pt verbalized understanding and is agreeable - Will discontinue sertraline as patient reports nausea has prevented regular compliance; she has only been taking it every 4-5 days - Will require collateral information from and/or children regarding her psychiatric history - are recent admissions only list depression - Encourage participation in group and recreational therapies - Encourage family meeting to involve outpatient supports in safety planning - Arrange appropriate aftercare with referrals for a therapist and psychiatrist at discharge 08/08 --increase Abilify 7.5 mg today. Baseline AIMS appears to be 0. 2/2 --Abilify 10 mg daily (improving) 2 --Abilify 15 mg daily, hesitant to add lithium given TSH elevation (daughter reportedly did well on it in combo with Clozaril). 08/11 - Continue aripiprazole 15mg daily - consider need for further titration versus trial of an alternative agent as patient continues to be floridly psychotic with ongoing disorganization of thought and delusional thought content - Family meeting was attempted yesterday with patient's daughter and - patient was limited in her ability to tolerate the meeting - Continue to arrange aftercare 08/12 - Titrate aripiprazole to 20mg daily starting tomorrow morning - patient remains delusional with inability to participate in reality testing - Pt more focused on various physical complaints (headache, dizziness, parasites) - continue to monitor, brief neuro assessment completed without any gross abnormalities - Will need to schedule a repeat family meeting once patient is better able to tolerate - Coordinate care with outpatient providers - Fasting labs obtained on 08/08/2019 - fasting glucose and lipid panel with all values WNL 08/13 - Cross-taper from aripiprazole to paliperidone, as patient is not demonstrating significant improvement with aripiprazole trial - Pt remains preoccupied with numerous physical complaints - now believing she pulled teeth from her head and that she has a tapeworm - Continue to coordinate care with family; will require repeat family meeting once able to tolerate the interaction 08/14 - Continue cross-taper from aripiprazole to paliperidone. Pt received last dose of aripiprazole this morning, and will increase paliperidone to 9mg tomorrow morning 08/15 -Patient has completed Abilify to invega cross-taper. -Remains floridly psychotic with complex delusions and disorganized thought process. Continued psychiatric hospitalization remains necessary for ongoing treatment and provision of safety due to degree of psychosis 08/16 -Patient remains delusional with some flight of ideas. At times she seems a little self-aggrandizing and thoughts are certainly coming rapidly and she remains very busy minded. I wonder if she might benefit from an anticonvulsant retrial. Given self-report of some possible multimodal hallucinations and clinical history, I would like to check a bedside EEG to try to rule out something like temporal lobe epilepsy as possible contributing underlying etiology. Routine EEG not available over weekend and will be ordered for Saturday. -Primary team can consider further titration of invega in the next few days 08/17 - Continue paliperidone 9mg daily - Routine EEG completed this morning; "no focal abnormalities, potentially epileptogenic discharges, or abnormal slow activity was seen". Will begin trial of Depakote, starting with 250mg this evening - continue titration as tolerated - Pt remains delusional and is difficult to redirect at times, though she remains pleasant and continues to participate in group programming 08/18 - Continue paliperidone 9mg qAM - Depakote increased to 500mg for this evening. Pt continues to deny medication side effects - Pt continues to verbalize delusional thought content, believing her new case fitter will help her get her 3 babies back from [place] - Pt met with case fitter yesterday - Cooperative with [facility] today. Pt scored a 27/30, demonstrating "normal" cognitive functioning. She did have several errors; however, immediately corrected many of them, including the areas of: alternating trail making, and fluency (correcting for proper nouns and repeats and still being able to name 15 appropriate words). Pt did have one incorrect subtraction in the serial 7's task, and struggled to repeat only one sentence with total accuracy in the language task. Pt was able to recall 3 of 5 words without cues in delayed recall task. - We did review that patient should not immediately return to driving after discharge until she is demonstrating stability of psychiatric symptoms - will need to review this with family as well. 08/19 - Planning to switch from paliperidone to haloperidol, as patient continues to demonstrate delusional thought content that is not responding to trials of atypical antipsychotics - Will order one-time dose of 2.5mg and assess tolerability - could consider 2.5mg qAM and 5mg qHS and titrate from there - Repeat family meeting was attempted today with patient's , patient remains frustrated with him and his lack of support for the babies she believes they had - Pt continue to be unable to participate in any type of reality testing, making demands that our staff contact the facility where she believes she gave . She is becoming more paranoid of staff, believing she has been told not to speak with certain individuals. She remains at ongoing risk of further decompensation and potential harm to self or others based on the severity of these delusional beliefs and her disorganized thought process 08/20 - Continue haloperidol 2.5mg BID - while patient's delusions persist, and she will likely need a higher dosage of the medication, she has also demonstrated significantly increased fatigue today, likely correlated to recent medication change. Will plan to continue dose titrate as tolerated - Continue Depakote 500mg qHS - Pt scheduled to meet with her case fitter again today 08/21 -The patient's response to haloperidol was fairly quick and impressive. She had been started on Depakote on 08/17/2019, and the dose was titrated to 500 mg at bedtime. She complains of some excess sedation that seems to be related to Depakote and given her evident response to haloperidol we will discontinue Depakote at this time and plan to restart it if indicated in the future. -Given patient's favorable response to haloperidol we will increase the dose of haloperidol from 2.5 mg twice a day to 5 mg twice a day. -Mild cogwheeling is noted on examination today. We will start benztropine 0.5 mg twice a day for EPS. 08/22 maintained treatment plan unchanged exploring for response to medications and s/e 08/23 rescinding limitations on visitors that are under age 18 given progress in pt otherwise maintained plan as further improvement noted, observe for brekathrough psychotic smypotms and preparing for discharge likely in 1-2 days if progress continues 08/24 -both patient and family feel she is ready for discharge. Prescriptions issued for 30-day supply of haloperidol and benztropine. -AIMS score 0. -Has been referred for outpatient follow-up at [facility] and case management through [facility]. Patient declined individual psychotherapy, but indicates she may reconsider in the future. Continue to recommend, as she could benefit from supportive psychotherapy and ongoing psychoeducation. (2) Delusion of : 08/07 - Patient's reports are inconsistent. She reports giving to 5 babies recently, but then also told ED staff that she believes she is currently - ruled out - urine HCG is negative; patient admits to tubal ligation in 08/09--patient still believes had multiple infants last year but clearly states not now. Believes children are alive and in [place] 08/17 - Staff report patient has made comments about being with triplets, but also needing to get a hysterectomy 08/21 -The patient spontaneously states today that she realizes that 1 of the reason she is in the hospital was that she had been claiming to be , and she notes that she now realizes that this is not possible given her age (69 years old). -She did make several statements today which, 1 of which may be considered delusional without collateral information. Specifically, she claimed that her brother has "MRSA in his foot" and became angry at her and deliberately rubbed his infected foot on her carpet. The patient also said that she had been "wondering" if doctors would ever do anything such as place a "titanium coat brown satish" in someone's footbut then she spontaneously said that she realized that this is not something that would actually happen. 08/23 -maintained plan as improvement further noted. 08/24 -delusions appear to be resolved; patient states she no longer believes that she was recently or giving . She is less focused on paranoia, and thinking is currently reality based. (3) History of MRSA infection: first swab negative on admission, MNPR pending 2nd swab day 5 if still hospitalized. 08/11 - Repeat MRSA swab obtained today, results are positive - Maintain MNPR at this time (4) Wheezing on auscultation: repeat CBC, CXR, Mucinex prn, ventolin inhaler q4 hr [place]. (5) TSH elevation: will need repeat as outpatient within 6 weeks via primary care [facility] Psychiatrist Name of Psychiatrist: Ranjana Price PA-C Psychiatrist's Date of Appointment with Psychiatrist: 08/14/19 Time of Appointment with Psychiatrist: 2:30pm Psychiatric Appointment Comment: [address] [place] [id number] Therapist Name of Therapist: Jenaro Market Asset Protection Manager Name of Market Asset Protection Manager: [facility] Laura Phone Number for Market Asset Protection Manager: [phone] Post Discharge Appointments Primary Care Physician Name Of Family Doctor: Dr. Quintero Primary Care Provider Appointment Comment: As needed Smoking Cessation Counseling Tobacco Cessation Medication Prescribed at Discharge: Not Applicable/Non-Smoker Contact Information Discharge Discharge [address]: [address] [place] [id number] Discharge Plan Discharge Items Patient Disposition: Home - Self-Care Reason For Visit: PSYCHOSIS Discharge Diagnosis: Schizoaffective disorder, bipolar type Activity: Per Instructions section Driving/Machine Use: No driving until you have stabilized fully. Non-emergency contact: Primary Care Provider, Psychiatrist and [employer] Call non-emergency contact if: you have any medication questions and your symptoms worsen Follow-up/Referrals: Gilmar Quintero MD [Primary Care Provider] - Diet: Regular Addtl Attending Provider Instructions: SPECIAL CARE INSTRUCTIONS: 1. Follow through with your scheduled aftercare appointments. If unable to keep an appointment, please call to reschedule. 2. Take your medication only as prescribed. Medication should not be changed or stopped without the approval of your doctor. In the event of worsening symptoms or concerns about side effects, contact your doctor immediately. 3. Utilize new healthy coping skills, anger management skills, and stress management skills learned during your hospitalization. Journal feelings and process them with a support person. Identify stressors or situations that may result in relapse, deterioration or inappropriate behaviors and develop a plan to deal with those issues. 4. If your coping skills are ineffective and you are in crisis, contact your outpatient providers for direction. If unable to reach your providers, please call the CAN HELP LINE AT or go to the closest Emergency Room. 5. Avoid alcohol and un-prescribed drugs. 6. You have been provided with the Mental Health Advance Directives Pamphlet for your review. AFTERCARE APPOINTMENTS: * Please call your insurance company prior to your scheduled appointment to confirm your aftercare providers are covered. Take your insurance information to your appointments. WHO TO CALL AND WHEN: Medical Emergencies: For questions or emergencies related to your hospital stay, please contact the Inpatient Behavioral Health Unit at [phone]. A advanced practice psychiatric nurse is on-call 28/01 for the Behavioral Health Unit for emergencies At any time you feel your situation is an emergency, you may also call 911 immediately. Your Doctors Instructions noted above were prepared by provider Idalmis Rosario MD. Pending Studies at Discharge: No Stand-Alone Forms: My [facility], Smoking Cessation, Suicide Prevention Resources Medications and DC Order Prescriptions: New benztropine 0.5 mg Tablet 0.5 mg PO BID Qty: 60 RF: 0 haloperidol 5 mg Tablet 5 mg PO BID Qty: 60 RF: 0 Continued atorvastatin 40 mg Tablet 40 mg PO QAM RF: 0 nadolol 80 mg Tablet 80 mg PO QAM RF: 0 aspirin 81 mg Tablet,Delayed Release (Dr/Ec) 81 mg PO QAM RF: 0 calcium carbonate [Calcium 500] 500 mg calcium (1,250 mg) Tablet 500 mg PO QAM RF: 0 triamcinolone acetonide 0.025 % Cream 1 applic TOPICAL BID PRN (Reason: SKIN IRRITATIONS) RF: 0 polyethylene glycol 3350 [Miralax] 17 gram/dose Powder 17 g PO DAILY PRN (Reason: Constipation) RF: 0 lisinopril 40 mg Tablet 40 mg PO QAM RF: 0 turmeric 400 mg Capsule 800 mg PO QAM RF: 0 Multivitamin 50 Plus Tablet 1 tab PO QAM RF: 0 Discontinued sertraline 100 mg Tablet 200 mg PO QAM RF: 0 Discharge Orders: Discharge Order (Routine); Ordered 08/24/19 Ordered By: Idalmis Rosario Admission Data Admit Date/Time: 08/06/19 17:58 Attending Provider: Idalmis Rosario Admit Provider: Idalmis Rosario Primary Care Provider: Gilmar Quintero Other Interventions: PSY Interdisciplinary Discharge Planning Last Done: 08/18/19 10:06 Coding Level of Care Code 74596 D/C day mgmt > 30 min Diagnoses Schizoaffective disorder, bipolar type F25.0 Delusion of F45.8 History of MRSA infection Z86.14 Wheezing on auscultation R06.2 TSH elevation R79.89
== END 2019-08-24 10:58 | disposition home or self-care (01) | DRG 885 ==
LOC: ED 12:04 → 3S 17:58